=== PATIENT | male | born 1975 | race Caucasian/White ===

== ENCOUNTER 2023-11-16 10:33 | Outpatient (OUT) | payer OTHER, SELFPAY ==
[2023-11-16 11:56] LABS: Estimated Average Glucose 103 mg/dL; Glycohemoglobin A1C 5.2 % (4.5-6.2)
[2023-11-16 12:12] LABS: Prostate Specific Antigen Scrn 1.02 ng/mL (<=4.00)
[2023-11-16 12:14] LABS: Alanine Aminotransferase 33 U/L (16-63); Albumin Level 3.9 g/dL (3.4-5.0); Alkaline Phosphatase 57 U/L (46-116); Anion Gap 11.9; Aspartate Amino Transferase 26 U/L (15-37); BUN Creatinine Ratio 12.3; Bilirubin Total 0.5 mg/dL (0.2-1.0); C Reactive Protein 0.68 mg/dL (<=0.50); Calcium 9.1 mg/dL (8.5-10.1); Carbon Dioxide 29.6 mmol/L (21.0-32.0); Chloride 101 mmol/L (98-107); Chol HDL Ratio 4.8; Cholesterol 201 mg/dL (<=200); Estimated GFR (African America >60 (>=60); Estimated GFR (Non-African Ame >60 (>=60); Free T3 2.29 pg/mL (2.18-3.98); Glucose 71 mg/dL (74-106); HDL Cholesterol 42 mg/dL (40-60); Potassium 3.5 mmol/L (3.5-5.1); Sodium 139 mmol/L (136-145); Thyroid Stimulating Hormone 1.558 uIU/mL (0.358-3.740); Total Protein 7.9 g/dL (6.4-8.2); Triglycerides 167 mg/dL (<=150); Uric Acid 7.3 mg/dL (3.5-7.2); VLDL CHOLESTEROL 33.4 mg/dL
[2023-11-16 13:45] LABS: Basophils Percent Auto 0.3 % (0.2-2.0); Eosinophils Absolute Auto 0.2 10^3/uL (0.0-0.7); Eosinophils Percent Auto 3.1 % (0.9-7.0); Hematocrit 44.8 % (42.0-54.0); Hemoglobin 15.4 g/dL (14.0-18.0); Immature Granulocytes Abs Auto 0.03 10^3/uL (0.00-0.03); Immature Granulocytes Pct Auto 0.4 % (0.0-0.5); Lymphocytes Absolute Auto 1.7 10^3/uL (1.2-3.8); Lymphocytes Percent Auto 24.4 % (20.5-60.0); Mean Corpuscular HGB Conc 34.4 g/dL (29.9-35.2); Mean Corpuscular Hemoglobin 30.6 pg (25.9-34.0); Mean Corpuscular Volume 88.9 fL (80.0-94.0); Mean Platelet Volume 10.3 fL (9.5-13.5); Monocytes Absolute Auto 0.7 10^3/uL (0.3-0.8); Monocytes Percent Auto 9.9 % (1.7-12.0); Neutrophils Absolute Auto 4.4 10^3/uL (1.4-6.5); Neutrophils Percent Auto 61.9 % (43.0-75.0); Platelet Count 225 10^3/uL (150-450); Red Blood Count 5.04 10^6/uL (4.70-6.10); Red Cell Distribution Width 11.9 % (11.0-15.0); White Blood Count 7.1 10^3/uL (4.0-11.0)
[2023-11-16 16:00] LABS: Erythrocyte Sedimentation Rate 39 mm/hr (<=15)
[2023-11-17 08:12] LABS: Testosterone 638 ng/dL (264-916)
[2023-11-17 09:10] LABS: Insulin 6.2 uIU/mL (2.6-24.9)
== END 2023-11-16 10:34 | disposition home or self-care (01) ==
LOC: LAB 10:41
PROVIDERS: PCP Nurse Practitioner Family; Visit Provider Nurse Practitioner Family
DX: Z01.89 Encounter for other specified special examinations (principal)
CPT/HCPCS: 36415; 80053; 80061; 82306; 83036; 83525; 84403; 84436; 84443; 84481; 84550; 85025; 85652; 86140; G0103

== ENCOUNTER 2025-01-09 15:59 | Outpatient (OUT) | payer OTHER, SELFPAY ==
--- OUTSIDE RECORDS SUMMARY | 2025-01-09 16:25 | XMS_ITS | CCD ---
Author Organization [facility] CliniSyfl Care Team Providers Care Sheet Cutting Operator Name Role Phone DR DELIA COKER V Admitting Unavailable DR DELIA COKER V Attending Unavailable JESSICA QUIGLEY Primary Care Unavailable JESSICA QUIGLEY Admitting Unavailable JESSICA QUIGLEY Primary Care Unavailable JESSICA QUIGLEY Consulting Unavailable JESSICA QUIGLEY Attending Unavailable Yair Louise MD Primary Care Provider [phone] Yair Louise MD Primary Care Provider [phone] OSEAS WHITTAKER Attending Unavailable YAIR LOUISE Referring Unavailable YAIR LOUISE Primary Care Unavailable YAIR LOUISE Referring Unavailable YAIR LOUISE Primary Care Unavailable Allergies Allergy Classification Reported Allergen(s) Allergy Type Date of Onset Reaction(s) Facility (2 sources) Penicillins; Translations: [PENICILLINS] Drug allergy (disorder) 6 [facility] Repository (3 sources) Penicillin G; Translations: [PENICILLIN G POTASSIUM] Drug Allergy 6 [facility] Work Phone: (1 source) Penicillins Propensity to adverse reactions to drug 6 Abdominal Pain [facility] (1 source) Penicillins Propensity to adverse reactions to drug 6 Abdominal Pain [facility] Medications Current Medications Medication Drug Class(es) Dates Sig (Normalized) Sig (Original) [id number] 200 actuat albuterol 0.09 mg/actuat metered dose inhaler (2 sources) beta2-Adrenergic Agonist Start: 08-04-2022 albuterol (PROVENTIL HFA;VENTOLIN HFA) 90 mcg/actuation inhaler Inhale 1 puff as needed. 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 +/-10% of 5565 FVIII units 6 each 09/20/2023 Active levothyroxine sodium 0.125 mg oral tablet (2 sources) l-Thyroxine levothyroxine (SYNTHROID, LEVOTHROID) 125 MCG tablet Indications: hypothyroidism Take 175 mcg by mouth in the morning. Indications: a condition with low thyroid hormone levels. 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: 07-07-2021 Resolved: 06-09-2016 09-19-2023 Chronic Nutritional deficiencies (3 sources) Vitamin D deficiency; Translations: [Vitamin D deficiency, unspecified] Onset: 11-12-2024 11-12-2024 Chronic Other nutritional; endocrine; and metabolic disorders (4 sources) Body mass index 30+ - obesity; Translations: [Body mass index (BMI) 36.0-36.9, adult] Onset: 07-06-2016 Resolved: 10-31-2018 10-31-2018 Chronic Past or Other Problems Problem Classification Problem Date Documented Da te Episodic/Chronic Appendicitis and other appendiceal conditions (2 sources) Acute appendicitis; Translations: [Unspecified acute appendicitis] Onset: 06-07-2016 Resolved: 10-31-2018 10-31-2018 Episodic Mood disorders (2 sources) Mood disorders Onset: 09-19-2023 09-19-2023 Results Test Name Value Interpretation Reference Range Facility CBC AND AUTO DIFFon 11-13-19 25 ABSOLUTE BASOPHIL 0.1 X10E9/L Normal 0.0-0.2 [facility] Comment on above: Performed By: #### C BCA, CMP, 19540-1 #### [facility] ([id number]) [address], [address] [place] [address] ABSOLUTE NEUTROPHIL 4.8 X10E9/L Normal 1.5-6.6 [facility] Comment on above: Performed By: #### C BCA, CMP, 11080-1 #### [facility] ([id number]) [address], [address] [place] [address] Basophils/100 WBC (Bld) 0.7 % Normal [facility] Comment on above: Performed By: #### C BCA, CMP, 00406-8 #### [facility] ([id number]) [address], [address] [place] [address] Eosinophils (Bld) [#/Vol] 0.6 10*3/uL High 0.0-0.[address] [facility] Comment on above: Performed By: #### C BCA, CMP, 88066-8 #### [facility] ([id number]) [address], [address] [place] [address] Eosinophils/100 WBC (Bld) 7.2 % Normal [facility] Comment on above: Performed By: #### C BCA, CMP, 74258-7 #### [facility] ([id number]) [address], [address] [place] [address] Erythrocyte distribution width (RBC) [Ratio] 13.7 % Normal 11.5-15.[address] [facility] Comment on above: Performed By: #### C BCA, CMP, 29383-7 #### [facility] ([id number]) [address], [address] [place] [address] Hematocrit (Bld) [Volume fraction] 45.1 % Normal 39-[address] [facility] Comment on above: Performed By: #### C BCA, CMP, 50194-0 #### [facility] ([id number]) [address], [address] [place] [address] Hemoglobin (Bld) [Mass/Vol] 15.4 g/dL Normal 13.0-17.[address] [facility] Comment on above: Performed By: #### Cleopatra FLETCHER CMP, 27517-7 #### [facility] ([id number]) [address] [address] [place] [address] Lymphocytes (Bld) [#/Vol] 2.1 10*3/uL Normal 1.0-3.[address] [facility] Comment on above: Performed By: #### C JUSTINE, CMP, 89711-9 #### [facility] ([id number]) [address] [address] [place] [address] Lymphocytes/100 WBC (Bld) 24.3 % Normal [facility] Comment on above: Performed By: #### Cleopatra FLETCHER, CMP, 05299-1 #### [facility] ([id number]) [address], [address] [address] MCH (RBC) [Entitic mass] 31.4 pg Normal 27-[address] [facility] Comment on above: Performed By: #### Cleopatra FLETCHER, CMP, 95583-0 #### [facility] ([id number]) [address] [address] [place] [address] MCHC (RBC) [Mass/Vol] 34.2 g/dL Normal 32-[address] [facility] Comment on above: Performed By: #### Cleopatra FLETCHER, CMP, 89467-9 #### [facility] ([id number]) [address] [address] MCV (RBC) [Entitic vol] 92 fL Normal 80-[address] [facility] Comment on above: Performed By: #### Cleopatra BCA, CMP, 37543-0 #### [facility] ([id number]) [address] [address] [place] [address] Monocytes (Bld) [#/Vol] 0.9 10*3/uL Normal 0-0.[address] [facility] Comment on above: Performed By: #### C JUSTINE, CMP, 61265-2 #### [facility] ([id number]) [address], [address] [place] [address] Monocytes/100 WBC (Bld) 10.8 % Normal [facility] Comment on above: Performed By: #### C BCA, CMP, 36780-9 #### [facility] ([id number]) [address], [address] [place] [address] Neutrophils/100 WBC (Bld) 57.0 % Normal [facility] Comment on above: Performed By: #### C JUSTINE, CMP, 74941-6 #### [facility] ([id number]) [address], [address] [place] [address] Platelet mean volume (Bld) [Entitic vol] 8.7 fL Normal 7-[address] [facility] Comment on above: Performed By: #### Cleopatra FLETCHER, CMP, 90890-6 #### [facility] ([id number]) [address], [address] [place] [address] Platelets (Bld) [#/Vol] 193 10*3/uL Normal 150-[address] [facility] Comment on above: Performed By: #### Cleopatra FLETCHER, CMP, 72195-6 #### [facility] ([id number]) [address], [address] [place] [address] RBC COUNT 4.92 X10E12/L Normal 4.10-5.[address] [facility] Comment on above: Performed By: #### Cleopatra BCA, CMP, 51327-5 #### [facility] ([id number]) [address], [address] [place] [address] WBC (Bld) [#/Vol] 8.5 10*3/uL Normal 4.0-11.0 [facility] Comment on above: Performed By: #### C BCA, CMP, 38013-7 #### [facility] ([id number]) [address] [address], [address] [place] [address] CBC auto differentialon 10-23 Basophils (Bld) [#/Vol] 0.1 10*3/uL [facility] Basophils/100 WBC (Bld) 0.7 % [facility] Eosinophils (Bld) [#/Vol] 0.6 10*3/uL High [facility] Eosinophils/100 WBC (Bld) 7.2 % [facility] Erythrocyte distribution width (RBC) [Ratio] 13.7 % 11.5 - 15.0 % [facility] Hematocrit (Bld) [Volume fraction] 45.1 % 39 - 49 % [facility] Hemoglobin (Bld) [Mass/Vol] 15.4 g/dL 13.0 - 17.0 g/dL [facility] Interpretation and review of laboratory results Abnormal [facility] Lymphocytes (Bld) [#/Vol] 2.1 10*3/uL [facility] Lymphocytes/100 WBC (Bld) 24.3 % [facility] MCH (RBC) [Entitic mass] 31.4 pg 27 - 34 pg [facility] MCHC (RBC) [Mass/Vol] 34.2 g/dL 32 - 36 g/dL [facility] MCV (RBC) [Entitic vol] 92 fL 80 - 100 fL [facility] Monocytes (Bld) [#/Vol] 0.9 10*3/uL [facility] Monocytes/100 WBC (Bld) 10.8 % [facility] Neutrophils (Bld) [#/Vol] 4.8 10*3/uL [facility] Neutrophils/100 WBC (Bld) 57 % [facility] Platelet mean volume (Bld) [Entitic vol] 8.7 fL 7 - 12 fL [facility] Platelets (Bld) [#/Vol] 193 10*3/uL [facility] RBC (Bld) [#/Vol] 4.92 10*6/uL [facility] WBC corrected for nucl RBC Auto (Bld) [#/Vol] 8.5 [facility] COMPREHENSIVE METABOLIC PANE Kris 11-12-2024 Albumin [Mass/Vol] 4.4 g/dL Normal 3.2-5.3 [facility] Comment on above: Performed By: #### C BCA, CMP, 55147-0 #### [facility] ([id number]) [address], [address] [place] [address] ALP [Catalytic activity/Vol] 49 U/L Normal 39-[address] [facility] Comment on above: Performed By: #### C BCA, CMP, 30040-8 #### [facility] ([id number]) [address], [address] [place] [address] ALT [Catalytic activity/Vol] 16 U/L Normal 0-[address] [facility] Comment on above: Performed By: #### C BCA, CMP, 31939-6 #### [facility] ([id number]) [address], [address] [place] [address] Anion gap [Moles/Vol] 8 mmol/L Normal 5-[address] [facility] Comment on above: Performed By: #### C BCA, CMP, 44661-1 #### [facility] ([id number]) [address], [address] [place] [address] AST [Catalytic activity/Vol] 21 U/L Normal 0-[address] [facility] Comment on above: Performed By: #### C BCA, CMP, 08477-6 #### [facility] ([id number]) [address], [address] [place] [address] Bilirubin [Mass/Vol] 0.3 mg/dL Normal 0.3-1.2 [facility] Comment on above: Performed By: #### C BCA, CMP, 19996-4 #### [facility] ([id number]) [address], [address] [place] [address] Calcium [Mass/Vol] 8.6 mg/dL Normal 8.5-10.5 [facility] Comment on above: Performed By: #### C JUSTINE CMP, 45677-5 #### [facility] ([id number]) [address], [address] [place] [address] Chloride [Moles/Vol] 104 mmol/L Normal 98-109 [facility] Comment on above: Performed By: #### C BCA CMP, 19057-5 #### [facility] ([id number]) [address], [address] [place] [address] CO2 [Moles/Vol] 27 mmol/L Normal 22-[address] [facility] Comment on above: Performed By: #### C JUSTINE CMP, 74563-7 #### [facility] ([id number]) [address], [address] [place] [address] Creatinine [Mass/Vol] 1.15 mg/dL Normal 0.60-1.[address] [facility] Comment on above: Result Comment: METH OD TRACEABLE TO IDMS STANDARD Performed By: #### C ROCKY FLETCHER, 04064-5 #### [facility] ([id number]) [address], [address] [place] [address] GFR/1.73 sq M.predicted among non-blacks MDRD (S/P/Bld) [Vol rate/Area] 79 mL/min/{1.73_m2} Normal >[address] [facility] Comment on above: Result Comment: Reported eGFR is based on the CKD-EPI 1 equation that does not use a race coefficient. Performed By: #### C BCA, CMP, 06344-7 #### [facility] ([id number]) [address], [address] [place] [address] Glucose [Mass/Vol] 96 mg/dL Normal 65-99 [facility] Comment on above: Performed By: #### C BCA, CMP, 65077-7 #### [facility] ([id number]) [address], [address] [place] [address] Potassium [Moles/Vol] 3.6 mmol/L Normal 3.5-5.[address] [facility] Comment on above: Performed By: #### C BCA, CMP, 70262-1 #### [facility] ([id number]) [address], [address] [place] [address] Protein [Mass/Vol] 6.8 g/dL Normal 6.0-8.0 [facility] Comment on above: Performed By: #### C BCA, CMP, 00987-4 #### [facility] ([id number]) [address], [address] [place] [address] Sodium [Moles/Vol] 139 mmol/L Normal 134-146 [facility] Comment on above: Performed By: #### C BCA, CMP, 88071-8 #### [facility] ([id number]) [address], [address] [place] [address] Urea nitrogen [Mass/Vol] 25 mg/dL High 5-[address] [facility] Comment on above: Performed By: #### C BCA, CMP, 57201-7 #### [facility] ([id number]) [address], [address] [place] [address] Comprehensive metabolic pane kris 11-12-2024 Albumin [Mass/Vol] 4.4 g/dL 3.2 - 5.3 g/dL [facility] ALP [Catalytic activity/Vol] 49 U/L 39 - 130 U/L [facility] ALT No additional P-5'-P [Catalytic activity/Vol] 16 U/L 0 - 40 U/L [facility] Anion gap [Moles/Vol] 8 mmol/L 5 - 15 mmol/L [facility] AST [Catalytic activity/Vol] 21 U/L 0 - 41 U/L [facility] Bilirubin [Mass/Vol] 0.3 mg/dL 0.3 - 1 .2 mg/dL [facility] Calcium [Mass/Vol] 8.6 mg/dL 8.5 - 10. 5 mg/dL [facility] Chloride [Moles/Vol] 104 mmol/L 98 - 10 9 mmol/L [facility] CO2 [Moles/Vol] 27 mmol/L 22 - 32 mmol/L [facility] Creatinine [Mass/Vol] 1.15 mg/dL 0.60 - 1.30 mg/dL [facility] Comment on above: METHOD TRACEABLE TO [facility] STANDARD eGFR (CKD-EPI)non-race dependent 79 - PINF [facility] Comment on above: Reported eGFR is based on the CKD-EPI 2020 equation that does not use a race coefficient. Glucose [Mass/Vol] 96 mg/dL 65 - 99 mg/dL [facility] Interpretation and review of laboratory results Abnormal [facility] Potassium [Moles/Vol] 3.6 mmol/L 3.5 - 5.0 mmol/L [facility] Protein [Mass/Vol] 6.8 g/dL 6.0 - 8.0 g/dL [facility] Sodium [Moles/Vol] 139 mmol/L 134 - 146 mmol/L [facility] Urea nitrogen [Mass/Vol] 25 mg/dL High 5 - 23 mg/dL [facility] Vitamin D 25 hydroxyon 11-12 Vitamin D+Metabolites [Mass/Vol] 31.1 ng/mL 30 - 100 ng/mL [facility] Comment on above: Vitamin D status 25 [place] Vitamin D Deficiency <20 ng/mL Insufficiency 20-29 ng/mL Sufficiency 30-100 ng/mL Toxicity >100 ng/mL NOTE: A pediatric reference range has not been established by the test bore helper of this kit. The [employer] recommends a Vitamin D level of = or >20ng/mL in infants and children. Vitamin D+Metabolites [Mass/ Vol]on 11-12-2024 [facility] VITAMIN D 25 HYD TOT 31.1 ng/mL Normal 30-100 [facility] Comment on above: Result Comment: Vitamin D status 25 [place] Vitamin D Deficiency <20 ng/mL Insufficiency 20-29 ng/mL Sufficiency 30-100 ng/mL Toxicity >100 ng/mL NOTE: A pediatric reference range has not been established by the test bore helper of this kit. The [employer] recommends a Vitamin D level of = or >20ng/mL in infants and children. Performed By: #### C BCA, [facility], 40313-0 #### [facility] ([id number]) [address] [place] [address] Documentationon 06-05-2024 Documentation [id number] Liana Kaufman 1975 M Date Provider Department Center 06/05/2024 [id number] BETANCOURT BILL MOB None No family history on file Reason for Visit and Comments: Glucose [909] Blood Pressure Check [299] A1C [910] Cholesterol [911] Normal [facility] CBC auto differentialon 08-25 Basophils (Bld) [#/Vol] 0.0 10*3/uL [facility] Basophils/100 WBC (Bld) 0.5 % [facility] Eosinophils (Bld) [#/Vol] 0.2 10*3/uL [facility] Eosinophils/100 WBC (Bld) 2.6 % [facility] Erythrocyte distribution width (RBC) [Ratio] 13.0 % 11.5 - 15.0 % [facility] Hematocrit (Bld) [Volume fraction] 45.0 % 39 - 49 % [facility] Hemoglobin (Bld) [Mass/Vol] 15.5 g/dL 13.0 - 17.0 g/dL [facility] Interpretation and review of laboratory results Abnormal [facility] Lymphocytes (Bld) [#/Vol] 1.3 10*3/uL [facility] Lymphocytes/100 WBC (Bld) 14.2 % [facility] [facility] MCH (RBC) [Entitic mass] 31.3 pg 27 - 34 pg [facility] MCHC (RBC) [Mass/Vol] 34.5 g/dL 32 - 36 g/dL [facility] MCV (RBC) [Entitic vol] 91 fL 80 - 100 fL [facility] Monocytes (Bld) [#/Vol] 1.1 10*3/uL High [facility] Monocytes/100 WBC (Bld) 11.3 % [facility] Neutrophils (Bld) [#/Vol] 6.6 10*3/uL [facility] Neutrophils/100 WBC (Bld) 71.4 % [facility] Platelet mean volume (Bld) [Entitic vol] 8.8 fL 7 - 12 fL [facility] Platelets (Bld) [#/Vol] 200 10*3/uL [facility] RBC (Bld) [#/Vol] 4.95 10*6/uL [facility] WBC corrected for nucl RBC Auto (Bld) [#/Vol] 9.3 [facility] Comprehensive metabolic pane kris 09-19-2023 Albumin [Mass/Vol] 4.4 g/dL 3.2 - 5.3 g/dL [facility] ALP [Catalytic activity/Vol] 53 U/L 39 - 130 U/L [facility] ALT No additional P-5'-P [Catalytic activity/Vol] 16 U/L 0 - 40 U/L [facility] Anion gap [Moles/Vol] 7 mmol/L 5 - 15 mmol/L [facility] AST [Catalytic activity/Vol] 15 U/L 0 - 41 U/L [facility] Bilirubin [Mass/Vol] 0.9 mg/dL 0.3 - 1 .2 mg/dL [facility] Calcium [Mass/Vol] 8.9 mg/dL 8.5 - 10. 5 mg/dL [facility] Chloride [Moles/Vol] 104 mmol/L 98 - 10 9 mmol/L [facility] CO2 [Moles/Vol] 31 mmol/L 22 - 32 mmol/L [facility] Creatinine [Mass/Vol] 0.91 mg/dL 0.60 - 1.30 mg/dL [facility] Comment on above: METHOD TRACEABLE TO [facility] STANDARD eGFR (CKD-EPI)non-race dependent - PINF [facility] Comment on above: Reported eGFR is based on the CKD-EPI 2020 equation that does not use a race coefficient. Glucose [Mass/Vol] 73 mg/dL 65 - 99 mg/dL [facility] Potassium [Moles/Vol] 3.6 mmol/L 3.5 - 5.0 mmol/L [facility] Protein [Mass/Vol] 6.9 g/dL 6.0 - 8.0 g/dL [facility] Sodium [Moles/Vol] 142 mmol/L 134 - 146 mmol/L [facility] Urea nitrogen [Mass/Vol] 19 mg/dL 5 - 23 mg/dL [facility] Vitamin D 25 hydroxyon 09-19 Vitamin D+Metabolites [Mass/Vol] 37.2 ng/mL 30 - 100 ng/mL [facility] Comment on above: Vitamin D status 25 [place] Vitamin D Deficiency <20 ng/mL Insufficiency 20-29 ng/mL Sufficiency 30-100 ng/mL Toxicity >100 ng/mL NOTE: A pediatric reference range has not been established by the test bore helper of this kit. The [employer] recommends a Vitamin D level of = or >20ng/mL in infants and children. Vitamin D+Metabolites [Mass/ Vol]on 09-19-2023 [facility] INSULINon 11-18-2022 Insulin 9.4 uIU/mL Normal 2.6-24.9 [facility] Comment on above: Performed By: #### I NSULIN #### [facility] [address] [address] [address] Nunu Dinero FREE THYROXINE INDEX T7on FTI 2.88 Normal 1.30-4.50 [facility] Comment on above: Performed By: #### C MP, T7, TSH, LIPID, URIC #### [facility] [address] [address] [address] Nunu Dinero T3U 36.0 % Normal 33.0-40.0 [facility] Comment on above: Performed By: #### C MP, T7, TSH, LIPID, URIC #### [facility] [address] [place] [address] Dr. Nunu Dinero T4 [Mass/Vol] 8.00 ug/dL Normal 4.50-12.10 [facility] Comment on above: Performed By: #### C MP, T7, TSH, LIPID, URIC #### [facility] [address] [address] [address] Nunu Dinero GLYCOHEMOGLOBIN A1Con 2022 ADA RECOMMENDATION SEE BELOW Normal [facility] Comment on above: Result Comment: ADA RECOMMENDED LIMIT 4.0 - 6.0 ADA THERAPEUTIC TARGET < 7.0 ACTION SUGGESTED > 7.0 Performed By: #### A 1C #### [facility] [address] [place] [address] Dr. Nunu Dinero Glucose [Mass/Vol] 103 mg/dL Normal [facility] Comment on above: Performed By: #### A 1C #### [facility] [address] [place] [address] Dr. Nunu Dinero HbA1c (Bld) [Mass fraction] 5.2 % Normal 4.5-6.2 [facility] Comment on above: Performed By: #### A 1C #### [facility] [address] [place] [address] Dr. Nunu Dinero LIPID PROFILEon 11-17-2022 CHOL-HDL RATIO NORM SEE BELOW Normal [facility] Comment on above: Result Comment: 3.3 - 4.4 LOW RISK 4.4 - 7.1 AVERAGE RISK 7.1 - 11.0 MODERATE RISK >11.0 HIGH RISK Performed By: #### C MP, T7, TSH, LIPID, URIC #### [facility] [address] [place] [address] Dr. Nunu Dinero Cholesterol [Mass/Vol] 231 mg/dL Critically high <=200 [facility] Comment on above: Performed By: #### C MP, T7, TSH, LIPID, URIC #### [facility] [address] [place] [address] Dr. Nunu Dinero Cholesterol in HDL [Mass/Vol] 48 mg/dL Normal 40-60 [facility] Comment on above: Performed By: #### C MP, T7, TSH, LIPID, URIC #### [facility] [address] [address] [address] Nunu Dinero Cholesterol in LDL [Mass/Vol] 153.4 mg/dL Normal [facility] Comment on above: Performed By: #### C MP, T7, TSH, LIPID, URIC #### [facility] [address] [address] [address] Nunu Dinero Cholesterol.total/Ch olesterol in HDL [Mass ratio] 4.8 {ratio} Normal [facility] Comment on above: Performed By: #### C MP, T7, TSH, LIPID, URIC #### [facility] [address] [address] Dr. Nunu Dinero HDL NORMAL > or = 60 mg/dl - LOW CARDIOVASCULAR RISK <40 mg/dl - HIGH CARDIOVASCULAR RISK Normal [facility] Comment on above: Performed By: #### C MP, T7, TSH, LIPID, URIC #### [facility] [address] [address] [address] Nunu Dinero LDL CALC NORMAL SEE BELOW Normal [facility] Comment on above: Result Comment: <100 mg/dl OPTIMAL 100 - 129 mg/dl NEAR OR ABOVE OPTIMAL 130 - 159 mg/dl BORDERLINE HIGH 160 - 189 mg/dl HIGH >190 mg/dl VERY HIGH Performed By: #### C MP, T7, TSH, LIPID, URIC #### [facility] [address] [address] [address] Nunu Dinero Triglyceride [Mass/Vol] 148 mg/dL Normal <=150 [facility] Comment on above: Performed By: #### C MP, T7, TSH, LIPID, URIC #### [facility] [address] [address] [address] Nunu Dinero VLDL CALC 29.6 mg/dL Normal [facility] Comment on above: Performed By: #### C MP, T7, TSH, LIPID, URIC #### [facility] [address] [address] [address] Nunu Dinero PROF 14(COMP METB)on 023 Albumin [Mass/Vol] 4.0 g/dL Normal 3.4-5.0 [facility] Comment on above: Performed By: #### C MP, T7, TSH, LIPID, URIC #### [facility] [address] [place] [address] Dr. Nunu Dinero Albumin/Globulin [Mass ratio] 1.3 {ratio} Normal [facility] Comment on above: Performed By: #### C MP, T7, TSH, LIPID, URIC #### [facility] [address] [place] [address] Dr. Nunu Dinero ALP [Catalytic activity/Vol] 55 U/L Normal 46-116 [facility] Comment on above: Performed By: #### C MP, T7, TSH, LIPID, URIC #### [facility] [address] [place] [address] Dr. Nunu Dinero ALT [Catalytic activity/Vol] 23 U/L Normal 16-63 [facility] Comment on above: Performed By: #### C MP, T7, TSH, LIPID, URIC #### [facility] [address] [address] [address] Nunu Dinero Anion gap [Moles/Vol] 12.0 mmol/L Normal [facility] Comment on above: Performed By: #### C MP, T7, TSH, LIPID, URIC #### [facility] [address] [place] [address] Dr. Nunu Dinero AST [Catalytic activity/Vol] 14 U/L Critically low 15-37 [facility] Comment on above: Performed By: #### C MP, T7, TSH, LIPID, URIC #### [facility] [address] [address] [address] Nunu Dinero Bilirubin [Mass/Vol] 0.4 mg/dL Normal 0.2-1.0 [facility] Comment on above: Performed By: #### C MP, T7, TSH, LIPID, URIC #### [facility] [address] [place] [address] Dr. Nunu Dinero Calcium [Mass/Vol] 8.7 mg/dL Normal 8.5-10.1 [facility] Comment on above: Performed By: #### C MP, T7, TSH, LIPID, URIC #### [facility] [address] [address] [address] Nunu Dinero Chloride [Moles/Vol] 105 mmol/L Normal 98-107 [facility] Comment on above: Performed By: #### C MP, T7, TSH, LIPID, URIC #### [facility] [address] [address] [address] Nunu Dinero CO2 [Moles/Vol] 28.7 mmol/L Normal 21.0-32.0 [facility] Comment on above: Performed By: #### C MP, T7, TSH, LIPID, URIC #### [facility] [address] [place] [address] Dr. Nunu Dinero Creatinine [Mass/Vol] 1.38 mg/dL Critically high 0.70-1.30 [facility] Comment on above: Performed By: #### C MP, T7, TSH, LIPID, URIC #### [facility] [address] [place] [address] Dr. Nunu Dinero EGFR-AF GIBRALTARIAN >60 Normal >=60 [facility] Comment on above: Performed By: #### C MP, T7, TSH, LIPID, URIC #### [facility] [address] [place] [address] Dr. Nunu Dinero EGFR-NON AF GIBRALTARIAN 56 mL/min/1.73m2 Critically low >=60 [facility] Comment on above: Performed By: #### C MP, T7, TSH, LIPID, URIC #### [facility] [address] [place] [address] Dr. Nunu Dinero Globulin (S) [Mass/Vol] 3.2 g/dL Normal [facility] Comment on above: Performed By: #### C MP, T7, TSH, LIPID, URIC #### [facility] [address] [place] [address] Dr. Nunu Dinero Glucose [Mass/Vol] 93 mg/dL Normal 74-106 [facility] Comment on above: Performed By: #### C MP, T7, TSH, LIPID, URIC #### [facility] [address] [place] [address] Dr. Nunu Dinero Potassium [Moles/Vol] 3.7 mmol/L Normal 3.5-5.1 [facility] Comment on above: Performed By: #### C MP, T7, TSH, LIPID, URIC #### [facility] [address] [place] [address] Dr. Nunu Dinero Protein [Mass/Vol] 7.2 g/dL Normal 6.4-8.2 [facility] Comment on above: Performed By: #### C MP, T7, TSH, LIPID, URIC #### [facility] [address] [place] [address] Dr. Nunu Dinero Sodium [Moles/Vol] 142 mmol/L Normal 136-145 [facility] Comment on above: Performed By: #### C MP, T7, TSH, LIPID, URIC #### [facility] [address] [place] [address] Dr. Nunu Dinero Urea nitrogen [Mass/Vol] 22.0 mg/dL Critically high 7.0-18.0 [facility] Comment on above: Performed By: #### C MP, T7, TSH, LIPID, URIC #### [facility] [address] [place] [address] Dr. Nunu Dinero Urea nitrogen/Creatinine [Mass ratio] 15.9 mg/mg Normal [facility] Comment on above: Performed By: #### C MP, T7, TSH, LIPID, URIC #### [facility] [address] [place] [address] Dr. Nunu Dinero TSHon 11-17-2022 TSH 1.655 uIU/mL Normal 0.358-3.740 [facility] Comment on above: Performed By: #### C MP, T7, TSH, LIPID, URIC #### [facility] [address] [place] [address] Dr. Nunu Dinero URIC ACID SERUMon 11-17-2022 Urate [Mass/Vol] 8.5 mg/dL Critically high 3.5-7.2 [facility] Comment on above: Performed By: #### C MP, T7, TSH, LIPID, URIC #### [facility] [address] [place] [address] Dr. Nunu Dinero Coding Summaryon 03-03-2022 Coding Summary HTMLBase 64 PcxcckohEJy5rZk+PGhl YWQ+UF2UVOXzH00mgLAy oS8HN3pMBS1KQRZZFXHM HY5CCR1gnPL9UNhcO4Ay biAv QetneMRmOL65FMe2QCK8 qGwfBYnouC5qyEIfA7b2 NzQzBQ74wP61WYgmWYTo JhM6TeFrbtfhmUDr G6wlPvZmcIPeOjd+PHRh YmxlIHdpZHRoPScxMDAl OjOghXanEA7dVi5oJLAp LWNvbGxhcHNlOiBj l1gdKFDkHEkaMY3rgMve U8ClkSC9PWBvx0k2Uz03 dHI+ZIEwPHZ1oHglWXha b789WhXic3hpNWU6 uXAvFQltCTQ0L14gr1E5 CKVrXKXyYIC7rRV6oW9b fHqluhilL4LbcKWyShA5 NAB5sXZlzN5cxLlm lysgyU7tJnr+F95DHE5X QOJEBQ0ZMnd6N4AkJkxa dHI+XL06MUMtIH60zXIx cRIfl2apkXx7AgQo CRJiGOW3kIydEAdsq9Pv UKZsT39mfTDhz3W5PRDy bFkpuHYsYhVzyIL1pT3b KDpntptan6stzqdj Sjcqg3kqdb98pX66R48w CBswXRQpLMX9UUZeSNMj xNdhnl8gkD2hJf7+IDxj p2zuu1bgcVt0HcGd ETQjyaYziDhzFQB4q1Ca Kr21N5CccAvwa3QnPmv1 vp85sNVwt2S0tLK5KQss DVBmqG5dYNowHeG2 VRDvBaZbwS31uKPkIDml Zb3efBjboBteJO7nOHOj jraaARGfwK8gJQOkyQUi zUboHA9fOEWtpduc g225JpVuBDQ6FDBmrXJh I5EjqL4cFuLzOQGgFVNq V0AhrTHvCUwhI643AYff KhH6ATUprjJcK6Ij WSRtlTggIyW2s7D8Pl3Q a4DannalWFK9VCzuZCV5 YaZqOjAxHgR7N4SnEcc0 TCGomBqvYZ1rK0Sa EEKzcxakhhhepEH9NEOt QBJlmM44gAOqXTzpXe5t s3X3i074BBEnDASiaH03 Kf5lvMduTOIfmEYC wL7pkbuge4ubcgkjLzZw MHFpWTq9VPp9XRMaqVaw JzToTBR9AtZ3JSD7oFNi hW3ubJzbkibkkA4t Oyc+X29paN3gRJI9PHF6 duprIOYbmsIkTU09OI28 J1QoTgriuOMpjSR+PGRp xjEcvFruYJ7dAjQw w4ykn8JbBOugZ3OnWQRl BHngMns5BLVkXWA6mEY2 hW2tOJKlBEjpq5L7hSU1 T2WiflPqhg5rx8ar QWUnGTajG48saJRhz8G5 VGPemXI5GILdrNixByJq oP38Dbk+BZMmaRsji5Xf Nnvea8tpj7sndQk4 IjMwJSIgdmFsaWduPSJ0 e9BwZc18G62wXUywKNNs VBGpKGOwFXIpoUmqmn9g yR2rOz3+PGNvbCB3 bKW0fS6dVDGtSpV1WOcg C575XsHdgXVvRbfvt1lp f0ptmUg3LuVfYIEhmgEx iEbnRKR0r3DuDt51 J46oJGxrANJvBGMmCIOg JWXtfLevbs0lmI0cNv2+ WD5xe9yrqm51qL12oTF+ HWXuYXP5pDkeKYwa AGGhwN0xJYvaNpC1RDHt CuTcsY84dABuUNlyTl9m bQpwzOdvQD9yFCSmdxka a025ChPip4nqJXXa rTAwTJyxTFB7S42ty9D2 IWSfSXCfPIS6dSC6tQ4c bGlnbjogbGVmdDsgdmVy kGplELywZTdcI404 IHRvcDsnPlBhdGllbnQg JgBhXLj0Q3UvQls8QEMg lMfxNL3wdZWmDSruLg3u dSaxrXwoHE0aUVLi ockzd394YkUut8omUDLh yKYsYYscJIO0J00pu5K6 HSYnVPRfBVZ3pGZ1nW2r bGlnbjogbGVmdDsg unOrcRyfSIpjXHtqA604 IHRvcDsnPkJpcnRoIERh qFA8XT20VE53qXOcp6G2 zVC1X6FeBOFwtolv fdvjxEM8JQKbZCWhoW71 Mk5tyQlkCh4zDSUrOXC4 TUNmdVKdG5LajB3wCnYy NJZyOQKnN1FqrRNb JTrzZ896QQnhWjI2VLMh qaOuG9YxNDLrvCmyNjK3 x4M3Fw6NK7F7MM08HU95 hFKmg2E1rRD2L1Ms GWTjkpxtuuprxLM3ZWVf WSTzaX43Bo9drUxcCt3x LGUuFCB2ZARewVTiV6Wg xU8xYnTcANQaBIEm O4BoeTAqEStdZ174XNwv OwP3IXFvzxQlK6NiYVFi kMxsEmI3f4P3Dv8DCLv7 ZZ85MJ53gETff3P5 kSN0J1VeRSYnnopcsghg gEX2KLKsZNNqhH72Nf8h pLudCa4iWIFyOTA3JMGe mCPzI1CbvN6kHgGn MYKzDUOkV2VdwBCzBZtk M269MAooFzS8AQEtmmRh T4YxECEgvOmmShA4o8D9 Ju7DKNMyXB57EWD1 yZV7KC02XZ78W8YhCgwo dGFibGU+PHRhYmxlIHdp ZHRoPScxMDAlJyBzdHls VA5sFa1fPOIhOTWm bVdoeLMnYaZjs7bcCVJb WZjlVE2rmMrjC8IfqSO9 HPKsp3l5Md08T34tF7Kd dXA+YLLpySG2eIN8 tF1bRaIiBmG3JNvsC664 WrJxtXIzKfwik9idg2ad bUg4DoU0FYBmemLqeLdd JVA3i3WvXh49F64d IHdpZHRoPSIxNSUiIHZh aTmnlu6jwQ9rUd6+PGNv uLT4gSU7wS2iJrZaAbC1 PAiuA456DzHkmPWf Hcjmt6npm2kooZv3TuUh GDMcpbCjhAhyJRE1q3Bp Xu74T0AsbWoho4OdDab0 js36kGEas4G5vXK2 T8ZqMFTleuajlMXraLcf QO2aPMBhnsseSHJemU9s VHVwE9p8ToNuIkX8YLmv M3YoagD7SMUzkUDz OMbwOLQ4L96zr5P6XKSe KFDrKDA3pDJ8yU5nyHmk bjogbGVmdDsgdmVydGlj JJogRNbeZ145HYUi jUyvKFIocY8vBNXlrUBm bHqgPH5qJQWaeyxfMz3Y XTuML5LsAV0YA6hUAKxu Td7SASFISL00RE40 yJGln0U3rCS3R7TeTTNx cwodyscscTF7QAWxZOKv yT37zTIaDRzyGb5lj1I4 x405PBOvAJFgmL30 Ju4sjJggTDAznBROzL3s ydayn7hkflqfOaRhZSRy IXb5EAh3ODZebVuwGxQk NKZ3NrH5FEJ2zDOn iF2ymYifsxqipU7yZjz+ SQLqFSKnPGb3GEkqqKT+ TDCnAXY3rDadYNrkJJHh rP4yIWFjS6o0NdBb PfL1CGhdM0PcMBBfjdcj Sw70nG4tHiLhLyE0FVzb X4OtvbB1LUMugJFmLXjz DSR5B01ru7U4JOLj NZRmXMB5oQL7iV0zpOij bjogbGVmdDsgdmVydGlj YBkwTEuxN651AUCtuGia DwP0AAzzTAYrTT28 VY58oYAfy5K0mWM7F8Ik NNMewjyutwuerUD8XGQh AZSekK38sETcLBnsUp0i k8K9x221BDGgCRHw vF52Nk5nyZpsVHYiyMAT mM8uhmcgf0vxugwfGsYc SRXuYOn1FCv6XVJemTpf GpRcKPA7CrC0SGF6 cKRkoO1jzDpwhvxosG4m Oyc+TUFMRTwvdGQ+PHRk JGK2lIfeXAqlUJTcwX8a MGAkG2l0YyHgMmF3 FDtpS6KoNJTlvdwwGz28 cN5qDwTjPjD6QKwaL1Jr brD3SUFdrNVrDVqxTCI1 E39gu0V3XGEhOMYr NJH8pIJ6gS9seRuguuyj bGVmdDsgdmVydGljYWwt EOatE813RYDgqSmcNu2M QK56TI36L4JbIdjk dGFibGU+PHRhYmxlIHdp ZHRoPScxMDAlJyBzdHls RN8nZj2jKYVuQJEvtAmr nUEeCiHwm4jpPUPb SWevQC8wwMikL1LbwNX5 THOmz6v4Ew46L11bL6Md dXA+KKLsyXY0eQV2kQ3e RjFlZmE0PBtlR580 NyDtjOOpEpbcf5kdv1og vLc9NkSaQGLdstMaoHtx TUL2b5BuKo29W77kIHjc ZHRoPSIyMCUiIHZh rHkoay3dqU2bNn6+PGNv lDI2oBM7uQ9mPmEeVaN9 PEcbS748LpTvvUKfFtab M18sE1DggFK+PHRy Spy4FBSqxWeyZX2gnVYq OArvEq4vZQU6WeEpKdCv ETfxG4LaTSOwpixemtdg kLW2EWDfYZIzdM83 Cd4goVttKm0eVRGkVEU7 UMRaqEOcP4JtbI9dUvDl TTGfUTMhU5GxlSEqNQei V515UUelJeZ8COVp ddAeW0ZmPUUoqIucBlH0 m9Z6Pq3KuEbguUAsIR4u OmPbEPb9R1NbOeq1GQLe mAalLH1hxNCdZFnz Bu5zqFpdzVyhXX5rBVEs sqbyq907MsTuw4qsMWGz pJAxCHorAWH5I18kv2T7 PJEyXJBjUKZ3iEY5 oJ0rkFetuaogfRCsmKxx lmIrtGuqQWeyVMzcN616 DSJdwJusBeRDSfr5T3Li Jqd7IBJjtCtrVB5u yZPaVCpcUk4kuAynhWam MK3rNWMcbluif161QhWl p8qoLLHsnYWbETlaGKV0 R70ft9Q2PTTeALQe SFV4iJY3wQ0boYdjehxa bGVmdDsgdmVydGljYWwt DDivA558BALyzSorPb6E Zaj9X9NaAlt5ZEWc nBxhAA3nnISnEQlaZr9i cSodnJhsJJ2zDOCtiwzs t849NyHyi8wgTEFfzOAr VBorIBC9X32gm0K3 ASCtAKVuREJ9xVW0xF8t bGlnbjogbGVmdDsgdmVy lOanDFidNIqoR427OELp cDsnPlBheWVyOjwv dGQ+NJ86dy05Z8RdFpkc Ewq6VZVuXOK6pIJ9tK0a RDZqHTwsh0J7oZY7K0Xc yaRumv5ss3imGSSa ZTo (more content not included)... [facility] Coding Summary HTMLBase 64 OgpiltdwXYc6dEi+PGhl YWQ+NL9YARFpT69fjMKk lX8BA1xUSN4NIBBXGYCS JJ2DLS7kiFC3LPttG2Ir biAv PzneqOSuQZ18QRt8BJQ1 bQdsQSyjmF8ktCUbF5g2 UcKvTQ09kC28FHqxLQMh WtJ5CeHtdciszWZj I7fpYuWjwTOmCvf+PHRh YmxlIHdpZHRoPScxMDAl VyHzmDkfBW9mZm8vXKKr LWNvbGxhcHNlOiBj b2rgROCkNPppXS3zeVkp D7AvqDQ7VYAby7o6Kj26 dHI+CBJfFPX2yWgwPTwz s899QkHds8wjCRS4 zWRkZKktTGE5J95up6Z9 LSUkKJRhRJE0dFC8mD1y kKonqzkxG7UulQHpWfY4 BHE3vPXkfI3reKlu zzcnuI4hNwz+J01OVM1C KWPJPP0JKlk1Z1UjQfsm dHI+CQ77CTSrEZ46cUGb pJPjf8kfqEd9TbEb SSRsRVM6mLruAIdbq9Re BDMtC14zyYLmu6Q1BVRx nIflaCPuMcApwVS2fI7u EWjcyoqjg1qivxpm Qnkfs5bnam43rV13G61e GGztHAVqAZY7UXKbDILo vYixnd7wwB0dMw4+IDxj b1jqn4svkWr1FzNa AMTiqdSqlSmjNSI8b6Px Xy30U2ItkEojb8VoRtt4 et71yQRoq5S8xOW6GDfv YEMlhF7lYFioJzF5 IXXkIaTtvC80qGAsPPbl Xe6ehOjubWmyGI9vVKXu rtkfEKKyxP9cRMIvdAIw fFvzWS5oZKElpciw c127EzQgJIK0RVKuhBDy J5AmcJ3iYwXwSNEqHDHh D2GpcNYwFFtiJ508JKxi MzS9EEDzidUoH0Fc MHWmlWfqYaR5l7H2Yl3U c0YyosrmSMU1JFuxURR4 PaRzVvHfBsZ1N1OoOse1 IJKwrJxzFY0yH9Rb FSAjmxslvqljaPH6IBDw GBQtrE01xFNyNUisRl8i o8Z1t935DHEiMDIlbI63 Uu8vnZlzKNPtjVIN qH5rpbman4mytbvlGrOv ZUNnXHr3ATd5NPPrxMxt UhOgYOV2RfD5TYV7vZRv wZ9ddIygjqdelF4g Oyc+E47xoP8eZCU2DPI6 nckuSWOfgaXsMN19OJ10 T8GgZucnkFHgtNU+PGRp tkBhyDflMR4qTfAw w8jyk1MrLAwvA1PsPUMu SPoaIrj8EOTqXOJ2yQM8 yO1vVYAwCIesz0N8vWV4 K7RsqoWbfo4ho8uz URTaGBtuH94ojIYly7I4 ZHJfuFC5SFNjuYjeUbUs aH65Iam+ZORdiHvfx3Dt Ydsxm1gue0ojxSb1 IjMwJSIgdmFsaWduPSJ0 v3XwOk56K06aYMhbRILv CLLwHIGmACGmdGstef2x gN4cGc5+PGNvbCB3 uSE9tX5qFXBkNwG8EUpt K820ViTtuHRjYjakr8op y8zuyQt5TyCwZPIdmnZa iYcyANV8s9VeVp97 K26zSPaaAKKbZCHhWADg OXAhsUbkpk1pmP7gIx1+ BA0nf5jpik67aX18vUD+ PUScIAT0vLqyVOzs PLRewI6iYTdgLtM2SPVw MjPupW63lOUiAEmhIi5l tZxgnFywOF2wXMYeqokd h413XwNse9khEJTd lPVgGUwfSLI8S82yf4H2 RWHhCOUdKJG1wCP5jI1i bGlnbjogbGVmdDsgdmVy gCgkCBvkRHciU588 IHRvcDsnPlBhdGllbnQg LkUbAQt5H5HbYvn0TNWn rAkbWE8qeAEgCMqsBs6f pQufpFwnCN2kVYTc omzdt232ScWct0quOIZz tDFqWGwdFCS8A45qd1U7 MXLsTLKeNNC0nRL5aG6h bGlnbjogbGVmdDsg neDanCesYQetDJniE871 IHRvcDsnPkJpcnRoIERh zPN6MK86FY33lLGrl8Y0 gWM1X5KrVNKhjzye vcqpvDF7GBQnAGKkgO05 Gg9irIlgEr4sJOGiIAW4 VKCleZOjS8FtiT8xFxOc BEAfSUUdP7EdyRMt WTcvK463VBubLzN8KPAt fiVhJ6EaEADlsSrcXgC1 r6I8Kb6QJ6N1HU13GV73 mVVvd4I5uJI7S1Yn BOAlnciyezcwyUI3UAEv NXXliM20Ab2huCsrVp4t WKDyTWV8DKRwrQFqZ0Ey lK5vFiPpOJVtWVEz O1HskPRyUVooD809MKsl AyQ9MJWignUpR1ZnEYZs eDimHlJ9n8W6Ip0UHZo3 RP24LG42sEPqz0T5 wML3G6WbSBTrhppmphxg eRU1GLJsKQWbeU23Er7q kFzsNf8zRGBiIIN7ATNn nBDjD2SicT1hGoHm IPAgRVRpH0KwnQAnOOtb A125BUpeEqB1GUPuoxSk J6AlCOOgmBeqMlF2n4U6 Mx0XHCThEJ49YMK2 jBN2KY73GS92D1MtYcmq dGFibGU+PHRhYmxlIHdp ZHRoPScxMDAlJyBzdHls VA2sIv1lPVCuONMg pVenrYHiZoFri3bbJMFb XHwnJS5zkRxbF2FqyOF2 TGQpg9d7Ho05T53dL7Ec dXA+JPTisZW9bVO3 qD7vUaLoWcX9PRztQ756 BbPkjEFhQvaae4edb2nz rNb1SnJ4UZPziaClyXky UFR1o1QsWa60V10x IHdpZHRoPSIxNSUiIHZh vFhvpq8zxA4eEu7+PGNv fZP6qRY9kE2mTfQaAzF3 WJphY346AxQceZWa Pwkwm8laj3nwhIp4MlDg IEDipdImjPjkMDG6a2Rx Ef88J4GfmKksz1MbAwm5 iw62pRImr3K1jJN6 N1HfAIZocxatyFWdsQdu PK3eXCCudvigXVGcqD9e ZRXwH6p5HkWoDcR6PDxt B5HcazT5MPYjjVGw FFsmQWI0G27qn4H5TZKw KWTeDNQ7uLS8rR3dgHsb bjogbGVmdDsgdmVydGlj RPrpRZebE925SVHt gTgkBHRuwC0kPHDhnASt kCqwWA2nPVVbbduvXh7N LVqWP2WuYT1UV0lBGYlc Bq3EGCLACY55JW10 mQRah0C6tJD4K3BiOFYs ptovabolvBO6RHQnLMYc bO04rAAfMAvfMi1cb6X0 j146YJSeVSHtbF62 Ls5shBzmZUYshJJZoE5b yejad3vbembiZvCuBRMl RSj8TUm9SPQkpHdnApFe WMV6BjT8GWZ5gHNq tK8ifMylfpoapH5bJoq+ TGJyQAXmCCf3NArvzOW+ DIUgFPX6yZskHWrxUDYv cD1wKZJqH2n6IqUy ZdD0EUqfF6GnMHTzjwif Pm10uZ3tWiHhJpG8BRyf O4RhcuJ5XSEumYZfKNad DLG2S83ee0J2JDPz NDHsKDH3xWJ9hX0rtUkz bjogbGVmdDsgdmVydGlj NUlwWCngE947KECidJaf EwE2GWalPKLwHM50 EO49jBOur6M6oFN1Q9Ak YZPbrdoaairxhDL4NOFt OHYyeH92dLKqAJvqRi1o m5S9i076HFGaULEu jY35Wq1pvZdzEAFogBZD oF8ekbvqc7lxhdcxBvWy XQMzBSf3MVa9SHBscKcm OdTyBVK6MwO4PGA5 yLDibT4qnNidbptlkF8a Oyc+TUFMRTwvdGQ+PHRk ZYF9vJttGDqrOVAfbC8i FQMaP4e7UuIdOpE6 EEggY9XoVKBgbecxJk01 gS8bPxAqAaV8FIkdT2Vg deN1CBGbkCEdOTvnGIE4 X10sf2B4HFCjBBHk FVD6iCA2hP7vnKvdohpn bGVmdDsgdmVydGljYWwt PNncS931YTFxzUkqMjWj HHLhKP9ajLnriOJ+ RC27ip36E0KmKewtVkj6 GQTqGSY5bMT3uJ3aXOVa MGqer1Z8mYQ5O2XvfiEj hm5fw7llBIEfOYcy H76wdHBvd2T8UMHyzRU9 EOZaiCqlGaDzvD86Ryo+ CHAinXqmt7EwSvrwh0fv s2xgpCq5SuIfGJKk bwJtkNsjAXX2n2BuFz93 C30wUJseAWOzDXNaJEDq REVmaMfard7ktT7iQt3+ EMOejJY4wAJ3xR3s KfMqNmT8HLdmU952AoCj vTSzTtgub3oue3hniDx1 IjIwJSIgdmFsaWduPSJ0 q3StTh49N0FutLtf f4CaAop6lu04fQXwd2H3 eKK4B4TsMFOekdywoPSl dGbbQT5zTLGuszrmFOJy nG5aJJIsV3c1PcVd BeL5UOfeH4TrvsN3DQLc dTUmANQcyGGEmZ7mayvm l1irfisjSdXyNSLmKPf1 JFm8LZXqxEijQzBo PJL9FvI8WBX7uSLvtL4k cHhsaitluL8rRlu+UGh5 o3cegQItEZ1ffSN2SS17 CT55wHLhy4U7sIM9 U0JzGDZkakrzgqlabPK4 CEFuCZIckA75Jm0sqXxv Jw7pGKHdJTI4SXVbaSVv X9FdrX4mOnRaKWWp CCBjU0UqfKPuJFbiF653 XYdzVmZ5WVEolkBvH6Pf OSMhzYqyVbA7z6K4Ij9Z SB64EW45NW96pJNv p9Z0cZK9U5HaTCOurunv ichtvUY2KWXnOQPrhY39 Vr8wvEjhMt9gFBKvHUP5 MTOknCAoL1JyxN6g EyUuPOIoJLNyI6OzpQUx HAnmW954BJvxAoU9VSKk eaIeD3AmKUQemWfdQqX1 f0N5Uw5FSx08YM84 IL66zDUst8J7jKX9P7Kp MPBodxtgwkossVN2ZLQm INHxvT39Fx8ruXyjYu4g UPStBRA3YWRyjPQo N3ZutR7vDcXxTQHtDCUa N4YooMXmSBtzR805RLei KdM9CBJuqiXcY4QdDVOc eEgaJhJ4z3K9Ug6Q GUchlst1R0FsCxndmXZ+ SE64VUYkGK10bVZmqCKg t8octZt6FgJaKTYrAHL9 kMnsZAskr8LdYMEu Y29 (more content not included)... Normal [facility] ED Clinical Summaryon 2021 ED Clinical Summary [facility] - Emergency Department [address] [place], [place] [address] ED Clinical Summary PERSON INFORMATION Name: LIANA KAUFMAN Age: 46 Years Sex: MALE : 1975 MRN: Acct#: Visit Reason: Syncope/Near syncope; SYNCOPAL EPISODE, FALL, FACIAL PAIN Arrival: 02/14/2022 10:04:24 Discharge: 02/14/2022 11:12:00 LOS: 000 01:08 Check In: 02/14/2022 10:04:24 Checkout:02/14/2022 11:12:00 Address: [place] [address] PCP: Jessica Quigley PROVIDER INFORMATION Provider Role Assigned Unassigned QUINN ADHIKARI ED PA 02/14/2022 10:08:02 Eryn Florian [employer] Nurse 02/14/2022 10:18:48 VITALS INFORMATION Vital Sign Triage Latest Temperature Tympanic Temperature Temporal Artery Pulse Rate 97 bpm 97 bpm O2 Sat 99 % 99 % Respiratory Rate 18 br/min 18 br/min Blood Pressure /87 mmHg /87 mmHg MEDICAL INFORMATION Medications Given: Medication Dose Route tetanus/diphth/pertu ss (Tdap) adult/adol 0.5 mL IM Allergy Information: penicillin PHYSICIAN DOCUMENTATION Patient: LIANA KAUFMAN Age: 46 years Sex: MALE : 1975 Associated Diagnoses: Syncope; Laceration of lip; Chipped tooth; Elevated blood pressure reading Author: QUINN ADHIKARI Basic Information Time seen: Date & time 02/14/2022 10:08:00. History source: Patient. Arrival mode: Private vehicle, walking. History of Present Illness 46-year-old male presenting to the emergency department with complaint of syncopal episode. Patient states that he was coughing hard in his sauna room when he had a syncopal episode lasting a few seconds. He states that he went syncopal secondary to the coughing. Denied having any chest pains, headaches, visual changes, shortness of breath, abdominal pains, neck or back pains before or after the incident. States that he did cause a lip laceration and a chipped right front tooth. Denies any pain with movement of his neck or back, denies any teeth fitting together abnormally, denies any pain in his jaw or his midface. States that he is on EMS and believes he had a vasovagal syncope. Denies any other complaints. Review of Systems Constitutional symptoms: No fever, Skin symptoms: No rash, Eye symptoms: Vision unchanged. ENMT symptoms: Lip laceration, no sore throat, no nasal congestion. Respiratory symptoms: No shortness of breath, no cough. Cardiovascular symptoms: No chest pain, no tachycardia. Gastrointestinal symptoms: No abdominal pain, no nausea, no vomiting. Genitourinary symptoms: No dysuria, Musculoskeletal symptoms: No back pain, no Muscle pain. Neurologic symptoms: No headache, no dizziness. Health Status Allergies: Allergic Reactions (Selected) Unknown Penicillin- No reactions were documented.. Past Medical/ Family/ Social History Family history: No family history items have been selected or recorded.. Social history: Social & Psychosocial Habits Alcohol 01/27/2022 Alcohol Use: Current Type: Beer Frequency: 1-2 times per month Substance Abuse 01/27/2022 Substance use: Never Tobacco 01/27/2022 Smoking tobacco use: Never tobacco user Electronic Cigarette/Vaping 01/27/2022 Electronic Cigarette Use: Never . Physical Examination HEAD: Appears atraumatic. EYES: -EOM intact, PERRL -Nystagmus: No ENMT: Ears, Nose, and Throat all appear atraumatic. -Front right tooth is a small chip, he is appears stable to palpation, no pain with palpation of midface, midface is stable. -Patient has sustained a 2 cm laceration to his upper lip, this is not through and through but does gape open when spread apart. -No hemotympanum appreciated NECK: -Abrasions or contusions: No -Tenderness to palpation: No midline tenderness -Range of non-tender motion (for patient): Normal CARD: -Rate and rhythm: Regular -Murmurs: No -Rubs: No CHEST/RESP: -Pain with firm chest palpation: No -Respiratory effort and chest excursion with respirations: Normal -Breath sounds equal bilaterally: Clear -Wheezes: No ABD: -Appears non-distended and atraumatic -Bowel sounds: Normal. -Deep palpation of epigastric, suprapubic and 4 quads: Non-tender -Organomegaly palpable: No -Abnormal masses: No BACK: -Abrasions or contusions: No -Tenderness to firm palpation: No midline tenderness : Pelvis stable and non-tender to firm palpation. EXT: -No obvious deformities -ROM (for patient) in all four extremities: Normal -Tenderness to palpation: No -Injured Extremity(ies) distal pulses: Normal NEURO/PSYCH: -Patient: alert -Signs of intoxication: No -Oriented to: person, place and time. -The patient's appearance, judgment, mood and manner: Appropriate. -Grooming and personal hygiene seem: Appropriate. -Abnormally-favoring gait (for patient): No Medical Decision Making 46-year-old male presenting to the emergency department complaint of laceration to his upper lip status post syn (more content not included)... Normal [facility] ED Note - Physicianon 2021 ED Note - Physician Patient: LIANA KAUFMAN Age: 46 years Sex: MALE : 1975 Associated Diagnoses: Syncope; Laceration of lip; Chipped tooth; Elevated blood pressure reading Author: QUINN ADHIKARI Basic Information Time seen: Date & time 02/14/2022 10:08:00. History source: Patient. Arrival mode: Private vehicle, walking. History of Present Illness 46-year-old male presenting to the emergency department with complaint of syncopal episode. Patient states that he was coughing hard in his sauna room when he had a syncopal episode lasting a few seconds. He states that he went syncopal secondary to the coughing. Denied having any chest pains, headaches, visual changes, shortness of breath, abdominal pains, neck or back pains before or after the incident. States that he did cause a lip laceration and a chipped right front tooth. Denies any pain with movement of his neck or back, denies any teeth fitting together abnormally, denies any pain in his jaw or his midface. States that he is on EMS and believes he had a vasovagal syncope. Denies any other complaints. Review of Systems Constitutional symptoms: No fever, Skin symptoms: No rash, Eye symptoms: Vision unchanged. ENMT symptoms: Lip laceration, no sore throat, no nasal congestion. Respiratory symptoms: No shortness of breath, no cough. Cardiovascular symptoms: No chest pain, no tachycardia. Gastrointestinal symptoms: No abdominal pain, no nausea, no vomiting. Genitourinary symptoms: No dysuria, Musculoskeletal symptoms: No back pain, no Muscle pain. Neurologic symptoms: No headache, no dizziness. Health Status Allergies: Allergic Reactions (Selected) Unknown Penicillin- No reactions were documented.. Past Medical/ Family/ Social History Family history: No family history items have been selected or recorded.. Social history: Social & Psychosocial Habits Alcohol 01/27/2022 Alcohol Use: Current Type: Beer Frequency: 1-2 times per month Substance Abuse 01/27/2022 Substance use: Never Tobacco 01/27/2022 Smoking tobacco use: Never tobacco user Electronic Cigarette/Vaping 01/27/2022 Electronic Cigarette Use: Never . Physical Examination HEAD: Appears atraumatic. EYES: -EOM intact, PERRL -Nystagmus: No ENMT: Ears, Nose, and Throat all appear atraumatic. -Front right tooth is a small chip, he is appears stable to palpation, no pain with palpation of midface, midface is stable. -Patient has sustained a 2 cm laceration to his upper lip, this is not through and through but does gape open when spread apart. -No hemotympanum appreciated NECK: -Abrasions or contusions: No -Tenderness to palpation: No midline tenderness -Range of non-tender motion (for patient): Normal CARD: -Rate and rhythm: Regular -Murmurs: No -Rubs: No CHEST/RESP: -Pain with firm chest palpation: No -Respiratory effort and chest excursion with respirations: Normal -Breath sounds equal bilaterally: Clear -Wheezes: No ABD: -Appears non-distended and atraumatic -Bowel sounds: Normal. -Deep palpation of epigastric, suprapubic and 4 quads: Non-tender -Organomegaly palpable: No -Abnormal masses: No BACK: -Abrasions or contusions: No -Tenderness to firm palpation: No midline tenderness : Pelvis stable and non-tender to firm palpation. EXT: -No obvious deformities -ROM (for patient) in all four extremities: Normal -Tenderness to palpation: No -Injured Extremity(ies) distal pulses: Normal NEURO/PSYCH: -Patient: alert -Signs of intoxication: No -Oriented to: person, place and time. -The patient's appearance, judgment, mood and manner: Appropriate. -Grooming and personal hygiene seem: Appropriate. -Abnormally-favoring gait (for patient): No Medical Decision Making 46-year-old male presenting to the emergency department complaint of laceration to his upper lip status post syncopal episode. Patient states that he was coughing hard and had a syncopal episode lasting a few seconds. Patient states he is on EMS and indicates that he had a vasovagal syncope. He states he did chip his tooth and it caused a lip laceration. Denies any other complaints. I discussed CT scan of head neck and face and he declined indicated he did not feel this was necessary. EKG was performed and shows normal sinus rhythm with ventricular rate of 93, no acute ischemic changes or arrhythmias appreciated. We are both in agreement he did not require any blood work or any further work-up for this. Laceration was cleaned and repaired by me in the emergency department, 1 suture was placed inside the lip secondary to gaping laceration. Told that this will dissolve on its own return for any signs of infection. Patient states she is allergic to penicillin as when he took Augmentin he had upset stomach after taking Augmentin, states he has had amoxicillin in the past without any issues. I discussed giving the patient amoxicillin, he states that he just started Cipro yeste (more content not included)... Normal [facility] ED Note-Nursingon 02-14-2022 ED Note-Nursing patient arrived to ED d/t a near syncope episode. Patient was in a steam room had an coughing episode and woke up on the floor. Patient fell forward hitting his face. Has a bruise on his nose, chipped front tooth and laceration to his upper lip. Upper lip laceration was oozing. Normal [facility] ED Patient Summaryon 022 ED Patient Summary [facility] - Emergency Department [address] [place] [address] PATIENT DISCHARGE INSTRUCTIONS Patient Information Name: LIANA KAUFMAN Age: 46 Years Date of : 1975 Reason For Visit: Syncope/Near syncope; SYNCOPAL EPISODE, FALL, FACIAL PAIN Arrival Time: 02/14/2022 10:04:24 Primary Care Physician: Jessica Quigley Attending Physician: Levi Vogel MD Comment: Visit Diagnosis: Diagnoses This Visit Chipped tooth (S02.5XXA) Elevated blood pressure reading (R03.0) Laceration of lip (S01.511A) Syncope (R55) Syncope/Near syncope ([id number]) Prescription Information: If you have been given a prescription for narcotics, seek immediate medical attention if you have any difficulty breathing or any sudden status changes such as confusion and sleepiness. If you or anyone you know is experiencing suicidal thoughts, mental health, alcohol and/or drug addiction problems; contact the [facility] 13/02 Crisis Hotline -Text 4HVDZ cj 135893. If you received any narcotics, sedation, or any other medication that causes drowsiness for the next 24 hours, unless otherwise directed: ? Do not drive a car. ? Do not operate machinery such as power tools, lawn mowers, drills, sewing machines, or stoves ? Avoid alcoholic beverages and drugs for allergies, nerves, or sleep ? Do not make important personal or business decisions or sign any legal documents With: Address: When: [facility] Within 2 to 4 days Comments: [phone], follow-up with dentist for reevaluation of your teeth next few days. Return the emergency department for any worsening issues or any other problems. Continue amoxicillin as discussed along Peridex oral mouthwash. Return anytime. Tylenol for aches and pains. At family friends keep a close eye on you over the next 24 to 48 hours return immediately for any abnormal behavior, confusion, trouble walking or talking or any other signs or symptoms of evolving head injury such as severe increasing headaches. With: Address: When: [facility] [address] [id number] Business (1) Within 2 to 4 days Medication Information: The exam and treatment you received today in the [facility] Emergency Department were for an urgent problem and are not intended as complete care. It is important for you to follow up with a doctor, nurse practitioner, or physician?s museum assistant for ongoing care. If your symptoms become worse or you do not improve as expected and you are unable to reach your usual health care provider, you should return to the Emergency Department, we are available 24 hours a day. For those patients who have received Radiology results, the interpretation of your X-ray as given to you by our Emergency Department physician is only a preliminary report. The Radiologist will review your films and if there is a change in the diagnosis you will be notified by phone. Please make sure you have provided a working phone number so we can reach you if necessary. In the event that you had a lab culture while you were a patient in the Emergency Department, you will be notified by phone if there is a need to change your antibiotic. Please make sure you have provided a working phone number so we can reach you if necessary. [facility] Emergency Department has provided you with a complete list of medications post discharge. Please inform your conventional underwriter/provider of your visit and for further instruction on these medications. Any specific questions regarding your chronic medications and dosages should be discussed with your primary care physician(s) and/or pharmacist. Medications to Continue That Have Not Changed [id number], [address], [place] [id number], [phone] amoxicillin (amoxicillin 500 mg oral tablet) 1 tab(s) Oral 3 times a day for 5 Days. Refills: 0. chlorhexidine topical (Peridex 0.12% mucous membrane liquid) 15 Milliliter Oral 2 times a day. swish and spit; do not swallow. Do not use any longer than 5 days.. Refills: 0. lactobacillus acidophilus (Acidophilus Extra Strength oral capsule) 1 cap(s) Oral every day. Refills: 0. Additional medications on your home medication list not specifically addressed. Please contact the ordering physician if you have questions about these medications. albuterol (albuterol 90 mcg/inh inhalation aerosol) 1 puff(s) Inhalation once as needed for wheezing. antihemophilic factor (Kovaltry recombinant intravenous powder for injection) colchicine (colchicine 0.6 mg oral tablet) 0.5 tab(s) Oral 2 times a day. levothyroxine (levothyroxine 175 mcg (0.175 mg) oral tablet) 1 tab(s) Oral every day. predniSONE (predniSONE 20 mg oral tablet) 2 tab(s) Oral every day for 5 Days. Refills: 0. sulfamethoxazole-tri methoprim (sulfamethoxaz (more content not included)... [facility] Coding Summaryon 02-05-2022 Coding Summary HTMLBase 64 GkgtbcwdUEd7lHp+PGhl YWQ+JT5TSYSfZ92gyMTc tR7ME9rSLM9AJLTGXKJV FG6RQJ1tlPU8MAooU1Dv biAv JzzwfUWpAE20SUh0QOL3 wXjrDOkchF1ptJAsZ7q9 QeFfRA60mU45MAnnPCNz GnU5RlFaopeqnDEr Z5zcDxHaxSGaFxd+PHRh YmxlIHdpZHRoPScxMDAl PxJmhUlxCU6dKb8dOQGn LWNvbGxhcHNlOiBj o4pwGJXnGDwmHX5tdTqf J2UstWC9GRLgf5m6Fq85 dHI+LPRbCKW5aYwyOOfi y174JwHbb1knIKG1 zOMqKArbWVP6P48gt5P2 ORPrAVNtQFZ7rLC4zM6u bUhvothiO6CvvKUfKlS2 YTJ5nJVbcL0rgWvf yemgtJ8vKir+W36HEW0N DPZSLE7FAjb2P1OzPgrt dHI+SP48WLViLL44sBGh nCMco3aqpQj1DzIy DOOiUCW7lGdmVFnyg0Vn CNPoW06cyGPah2Q7JKNd jBihoNCvDgSwpZI1hG7f POtlhgwct0dnpweq Wsljw2awpl21kZ02Q23l WIikLLQvNWE3DOYeDJLy vFbxho9vpD9tKn5+IDxj m3hdc3phdBw6DpLg BVDqdxUtuYlsFIU4s9Zw Rq86W8GsnTyzn3SdBrj4 ea24sCSjq8T0yGH6EFnp HGXcwK7yWPoiEfV5 JRTwMmJafJ55nMQpVEba Jn0byPvfhRqwGH2vNTQp malfWQJzrE1zLQYuwYEc kTpiKS3eVRXbqifq e602OkQbMSE1CNLgtOGf M0RyjC9jKrBcJEWsMURa P5QoiJFeRSvtY617NJgl ZwX7UQJkveVrE2Ee SQDmmMucUlR0h8H2Ar2V l5GiyojfFPB5RQtyCDA5 TzW4BaQpFiT5W0MzJzn5 AMFqnHglVU2dR7Er IVEqpvedppmvkOZ7GJEm RLZmwE33dSRdRWkrAv3l e6X6o193LNPiRNQzxG74 Fu4efNjuXYMjeEIE yO1gylfuz9afvvxcUrJp FSIgDGn1OEe2JLUzbJuz CiFnQYO5OeI2XXM0aWVb yG3yaMesvfnxxO6m Oyc+C56yoM2cOUU4MCB3 onbgMYZqjjUnLL27YP72 N3CfPtwzgHFcgYD+PGRp qrQorSxiPV5rJuXm y6php0RmYCudI8MmNMVh RNswJvw8QYQiPTV0pNX6 tI8uAVXmPGgyt7N1qJP6 R9OftcZvmw0xj1eq RQWdFIasA67hdGFka4F4 FXUdwUC7JJMyuHuyPpXz bO07Ehh+HSZaqXzqw1Hm Ppkkl5pzz2sfnEy4 IjMwJSIgdmFsaWduPSJ0 h0PmGx77Q90yIXlwSTWl DVRnSUDgEPHvkWczwi9v qC3xLu7+PGNvbCB3 oXX0zR8yRHCsPwD9FVeu H034AqAseKJsMsnlp3xy j6njeJe3ZgRsCWQqyfBa aAahKAO2u3AdSy23 I16qTSmmFOJnGPFyYJZz JLXppYuovh9yeG6vLj6+ NY3hr2qlnf61kC11rWR+ YOUtADV7mVidZToo KBDpyZ7tWFhhFoI7MIAx JzBirP64xGFnMQjzSx1h dLecuSguVW9sOCCgitld y805WvLzg5fgOIQu ePKvMDjgYUR7A14tj2V1 XCKmDQIqCMV4gPK0yD4m bGlnbjogbGVmdDsgdmVy eGeySInaMJarS805 IHRvcDsnPlBhdGllbnQg FlSyEEe3D8DuNmx4QZZm iHrvMY2huSFhKJszQc3a iLaziMcbWN5rWJEs pfebc394QgNam6tzDJPj jVJkAOidVXR9N92kr1C0 EREtCKOlVHJ7zLP3qK8w bGlnbjogbGVmdDsg pqOocSmwHHwsTQzbY329 IHRvcDsnPkJpcnRoIERh gGP0CV41LH48eOQzz3O1 aCH4U3WzPMHfveua mqmpdKW6GEPgWPDkdX97 Vl3gfRjxIk2nPSRfMNH1 ZQItcFKxL8CqwF3aOlNc RKRpSFCfG3MkkIQl IKzdB962CKvzVxN1UWZp cfHaG2NhCYIjfIfmSqK1 j4B0Qz0JC1C9RW00BV91 gYWhd2T6nMM3Y8Nf MFBgaojhrbfdvST6TONa UWOosQ35Xu0slDjpKp1q EVOvRXP8XMTcdMReW2La qT0pOhCkOEMxIWFr J3RmiDFeDUcvW598ADme YxS4URLlgkNkG6WoNAIt qEphTqI6v3O7Jj2SPBj7 FY48PO57lYUwx9I3 ySF1O9BmLMOkzhsovpzu uGA4YHRhJLAxwC52Lr6i yGnqVb1nXDXkFET7AAEl xDVsV5XzlU7tXlHv VSYkDSWeP0MslJKkEAyg X359RQcyJfS2AZHittLa Y1LcJNCcaExlVcS0x0K9 Yw3KZGQdAP89DLD9 dAG3JH99VI24U7AwYezg dGFibGU+PHRhYmxlIHdp ZHRoPScxMDAlJyBzdHls LT1lNf1cWWLjZUYo cMaacTSbZgIdz4bmNYYt FKjqRT7nuGacE0YiyFU1 EWHic4f2Lx18R70qV1Sn dXA+LDUrnLW6eYT3 qP0fTnOaDkS4FZdlB796 CwRcmZTdBioqw2spu0ok bPu3OrY8TTFpycBduMir UHG5u4GdKn17F59e IHdpZHRoPSIxNSUiIHZh eSraoc8gmP0lNb2+PGNv oDS0iCG1sY8vJgFjWuN1 BLjgZ043ClJmnKNz Sluzy9jeu6qvcVi0RlNh CCOfrfJdcTmnOQN1j4Qh Bs84B9DhaAgor4OgWvr1 xf39nLUte4H0nYJ3 X1MbSMVsegahnVVgxDkn DX0vJXLqhqbnEYAjvO6c MVBqZ8o1LzWbUdS6GPkx Y4UvswB1DGIcnCIc ZYtwZKN0N10yx7C3UEZv SUWgMYW2lIN4tB2zaAro bjogbGVmdDsgdmVydGlj XBwyWPjhE908VJHl zXvrDWZdnZ6xLPEtsHPo fMrmDC0sOUXrmnldXy4I UNySH2LoIU3EW6yVMZqg Sr3DTTHSYL77TH43 eQJto0U9rML6C1TkBOWf uitiwajjsVP5QNEjLUTz qX44tTEkEBmcVl1ks0P2 g527PMZvEEFtcA44 Au5sgIdfLRXkoAOMuO7z sixsf3thsmfkOgPvJZPx KFv9YKp4QRRgkEbaNyLc UYH3IyL4BOJ7eJBe oH1ybVmmudavxM7mEmx+ UCMcTNPhYQe5ACwgrID+ QMUwPBF9hLncENssHOEd lP7sESYwV8f7IzMa YfX1BMerR2HfXNDlrazo Fy04wQ4cOxUvSvW9ZLtt J9SzjxH6LGHyqHAlLDhj CZN1E40fh9Y6YPEu PANuEUY1cKN6gO3cbGnj bjogbGVmdDsgdmVydGlj EPnfSPewP077PDKclGig DrK0LLitZCPyTL70 MT31zETub5D2rUS0F7Tu JSFslbzzydutrXJ2HHGy ATLzaI00zPGoSCndNk1u d9J7a753UOCpMAMa vL82Qg1xnRzzRTGrqCFS zK3bnnsxc4isnbfzXwMm YOHcXEh2KIh5GZUjyNtw SwZoUEO5PdU3VNB1 pQSkaB2ecBqokdhudY6p Oyc+TUFMRTwvdGQ+PHRk RHS7wIklNDdrPKTeyJ9e RLRcH6s4KrPpEbX8 OLpaD5VjWYRsyggkHh96 pO4qHaWyYqM9ZDpiV8Rq vcX1ONQfhNLuBKfmMVB3 T54mx2O2AKKmADTo NFK9mBN0vW8ylKdrbbcn bGVmdDsgdmVydGljYWwt FHsvX364SUJibDmuTl5O LQ24QL99G8FcWber dGFibGU+PHRhYmxlIHdp ZHRoPScxMDAlJyBzdHls OZ3aMq7tOAQjTGGfeZfg dFKmGlGly4sxELJj GSnfZN6qhBqrO0TovSA7 HGBno7f5Iw36J50xD9Hm dXA+EORsmYL3cIB3qR9v DbUsXjC5BYwtI691 BtWanLAzPpwat6klc8nk gXn3CcFpSZVtyhOvgKtn WPH3c0UkUf82Z83eCTkp ZHRoPSIyMCUiIHZh uCpvgw3goC4jPx0+PGNv zEJ1bSX9xM4fYsQwWwN7 AIwdU060HwVrfQZoXxsd Y79oA4WohCJ+PHRy Ftv3YDKgcSdjNB7ogHEs FWkcZj2vLRP3UhEhGdEc EVvbQ2NjAAPvesnxufwh pCS1CNBnMMMetR21 Sv3unKilOm4tPCUcNSI7 YDItpPMlZ3ZtmJ9dIgWn QDLuRRDpY8VfmHCuIDkl I511WIdmPlS1JXMj npXfA8XuBJVwqEncZkD1 i0X9Td3KuFhrgKFuGA1y PvNqGDa1I0CiFew2KPGj gYrtZZ6fhIYcZUez Gd6taYmocPdfXF2yNEYg khlhw397DqYhx9ehDODx kOGjCSxzIEZ4W57pg4C2 NQEqHZUwNPH4mCE2 fX0sfLueyjbmgKLxcAke vsFeuDjxASqsWFayY082 FYXtoAnjUxBPSfx6G8Wy Rsj1DTAtdQufXF8n oTSdJJamZm2qeOrsjNnd TJ9aPOIpzkfvx837ZkBc l3beEMXvbKNyJHhxIFQ2 D02ge9C7SQJtOQQj ONW8sLR2dO4ctKfryvyz bGVmdDsgdmVydGljYWwt FEowH724TYZitVqqVe3L Beu8X1CnUef7PWKx gQvkWY9poZGaBRrhEd1n kBieaMwcOY2oKTCydabx f860OfLfc8weYKJbkFGj KLxaNDV4T20jl1U4 LQJnLWMpORQ5vQN6mL7k bGlnbjogbGVmdDsgdmVy hPxlWNkaMBmkW362XGFj cDsnPlBheWVyOjwv dGQ+IO37te81J7XcDdte Nke3NPBhRRA8tEK9iT4u FKNpOWrbx6T0fRS1U9Zh ibVyrh6dh2ctEDLa ZTo (more content not included)... [facility] Coding Summary HTMLBase 64 CwwouwkeNKu7jFn+PGhl YWQ+KY0CLFEcX32laUTw iR4RD9tDXW4SESDVJXJU GW8SNZ1umNN0TAtoP1Kt biAv BwhjsGPoFT51UPx9OJH3 qRlqVJuxoJ3rmBAdZ0p6 VsXnRL83gU99XJaiOASa QnQ6IpLbklrylGCr Z7urPlUjxZVoUyo+PHRh YmxlIHdpZHRoPScxMDAl GaVuxJveJL1zFa5iSFBh LWNvbGxhcHNlOiBj j9hjZHOpHYyeMJ7tfVfm J1ZdmJY2LGIir8j8Oa17 dHI+YKHcCZH0fNrsCOlo l390LaAln3ipEOJ3 wTYvPUduCRW3S12ke6F9 QLYtSHNzQCQ0oRN8pY6i fVoxvwmoV4OxrOPcUrE6 FWM0pGPiwH8yeExn xuotfD2iKve+Q75KHF3L LEDGWI6YUlp2H1PmKfan dHI+VV61IPBhLI14yKLm tOGof0xpaIq3WnQo CYTyFFX6kGgiFZnox1Tv WIMaZ73owZHpe1W1OIHf yXmctDXcPhEtyYP9xX6y WBloflhao0hktlqg Vpxzd6evnd70pS01V62e EPlfEVBzXCY5CKObDKTk yNxjuk2suC6qYr2+IDxj r6ajv7kdyDp7BjKn NKIiklCmbYezQXK6f1Tz Ff66Q5EnwYfqm9VrVps8 ea85oXQnc6J7gLJ9CDrz ROKttP4pDIcdAjN3 JKPjQuUoiI30pRXaIIat Oy0lkKfqcJztKR2aLBJo sgfuDMAbxM3cXLDyrUTa aRpvZH5uCDXjlbql z327BtZdHER8IHTvgCAo K1LppQ5nOiCuWWZjQSHv S8TihMFlZWvmD828TStp PdZ2DMXgjdEoI6Xz QCZkxNynMeW1a0Q7We2C p2WyorbyKNY2WUqkZMH9 CbF6XeEkPqR9H7QtGwp9 ZRUalBxkLK7jI3Bu IEEmtltrfngooNK4COSr IKYgoU58bRWsTYvrYw4g h7N9p049YJYeZZCsfS86 Ht5xoEdiFQXpzCMN rF5cdrsax2wuiyvfZdVx XRAbBZx8VBp8HYVikZom TfEdXTT9QwS3JJL9uHGl dC8oyIazxndqnK3f Oyc+G52dvN0jEHH2OHC3 svwwMPVbfvQlPJ09YA97 G3QySeuxrUDfzUU+PGRp lyNizXkaJU6tSdIu l0otc5UpNKuuZ9IbVARg BQvyLzq1HLKsCVX6iOJ5 hE4lWPWuPBzlm3U3oAO0 I1KethQkda6dg8pj EMPrRMcxL17pnFQla6F6 IOOihUK2FYBizNguRqWw vF80Rpn+ZSCfjEjag8Cx Mtehj0ylf0mcjIr2 IjMwJSIgdmFsaWduPSJ0 r1JeQw06T55eXUtbVMQz AISlPUGkDSSqeSywuc2r nX1sZj7+PGNvbCB3 pQL2sU5nARQyRaX9JDed O997ZnYcfWMwWpbpx5cp g6lrnBp9ZyYgZHGpjkJc cBciELU2u0XuPr50 Q97zBHiqBXClVGDgJQNj WQYurDnovq5atZ0aIv6+ BH4td3gycj85qM21hGP+ DOSoDUI9xGmkZBnk RGAeaQ5aNMhsTfI7MMLg SiUdgA62uDWlBPjnMf3i nIfexZzwXP0tXWUprpjw z072JdNyx1etQHNm mRWhJOtyTCF5L62kh9Y9 LIMeUJRfOPA6dYO4uF2h bGlnbjogbGVmdDsgdmVy nBfhFQfpOFjdR229 IHRvcDsnPlBhdGllbnQg XwSgQQf6L8EaRrw7QZEz oQkrGO5xsMKaVLjkHs2d iAapaVxbDG1oZSIo dnfit552LvJjw0hrMEDk pZObBTzeJJW8A70uv4P4 IXVoHTPbRBP9cFA2qW0l bGlnbjogbGVmdDsg ceGmwAazGDojJDjnF133 IHRvcDsnPkJpcnRoIERh nTF0CC28LM39bPXqd5D5 cSY2V3VqCUIzopni kthxfOT6UAVsMCGkbC23 Hb5fyByoUh6vJHCjZZL7 IUIceWZwP7KupG6dRkMx YEQfSSWwM5DtyLDk PHbuB213MTfkTtM8LZXg yjGcK5NiDJIusJgnWaC7 y1G4Mu0QY1E2FF54ON26 eINpe2U1bGP7V7Ct PFLoxugqlghbtPD6LJIq FCLuzD85Ow7ilMneFa7h KPFtXHK3TZEmvEZvR6Pe kM6yNwLdLVQhFTXj G5CfeAFoRJraT140TJnz VqZ7UJFvrjKoS4MhZBIs iWsqMhG3q0C8Jj7GKBd0 GC88JJ45nSHcj5X0 nXY1Z6EaLRPyfzbiiblm tIB7WTTaPPOsoG52Qt3m yAldAh3iXWGyTPG6IRJv gEEyT1VpoI8cQlOu HSIaSYNtD6TzvXKrIRrw L491OHxeJjG3EAMtydUb I7XcMKSelKztKeT5k9Q0 Sq1PNNDqPV72KSZ9 aBT5WL54WH84I1VuPnfx dGFibGU+PHRhYmxlIHdp ZHRoPScxMDAlJyBzdHls LD9kFg7bBBAaKINb yUlwvBBdQvTgp0ugFZBk MRqyZX6ckZcfN3ErmEH1 YEOmd2q7Gt91U07bA5Bz dXA+NMUldUS1oUM8 gY5uIpVuIvR3GLmdJ587 RyHtvYDzUymkt2bph1ez zPt0JxU8FZQhieWrzQzm RUG5a5BnEk85L57c IHdpZHRoPSIxNSUiIHZh jRkltq4zgV0gPf1+PGNv hKY9fOV8aN3qVhAdZfK7 BXjlU673RmYzmUDn Rmlbj0bci3jggOe8YoXf FSAhenDggWlpFBY7d9Uc Gh15P3NvyAzvr5ZxHma9 ul98nGUai1C4tWS2 Y9DuOQNrturenDUgvZuj VR2jGPEmwvkjITCdkR3j JHFkQ4d5TnWpEyZ3WArp R6LdjzN4ATUzrEBj EIdzDIM1D98kx3G1OQSm OYEdZWR9uZK7jG3mlIrt bjogbGVmdDsgdmVydGlj UIukSHamR877UPNe zGnwDDNldU5nZUBkgKIp qZywNZ9xLCZjavizYg8N QZmEI8HqSP3QH6oSXPfb Ui1VKCBMSV51FI42 tUNvq7C9hGD8K8FxCUJz gidmliwcsRJ0XZZjYEKu zG94zVQeNAnnFj8az6D5 v948ELLzWULkkK31 Tq3ewTkwJKZcrPKWpN8g gfjwl2mfighcDdRvMCVx DIe4PId9IDXxmTnyQoYn LNZ8BvP9XJA8iMIg hB4hrFmnhqxzoQ3sDqs+ WCZsCVFrHKy4PVnkzLF+ AUFaLXE5mXsqVHelWRGo eH7bWLGjV9g2BpSg EaR2VSojZ4GvFMYjmdzj Ge99dP0pOyTcQcU6VTxu P6ZapcV6YTQjyNTbFNqm BVR7B77pw6N2WVMh QZJsJWZ7zHP1kV6juGhr bjogbGVmdDsgdmVydGlj QVkyMFsqG288MIDefMoz XnM4GZulSYEaJA50 SL93yMUgh0O9rHT6W1Yg GHCmoxekyjdllOW0PVWy NGGdoJ68uVNoJJhzLg4a d0D3x379XWIlZKGy uW67Ic2olLpcDOVynGQW sO0mazyfn2neljciUdBb HIStHOb8KXo2JWCwrJyy GrWtWBK1XsK7XPY3 cMWeyP8raEiyjpqemC0z Oyc+TUFMRTwvdGQ+PHRk GDV9yXjhSQcdNPGudV8g IFKuK1p6NxJxIrE5 EXoyN8XwOFJfdlvxFz69 aP1iZnXmVgI5DBldM4Ui koB2NCOxfUBkIAjlHHA5 K95zf8R3QFLjVXGc RBT5mQF4kZ1ncBuchnbd bGVmdDsgdmVydGljYWwt JSfjG181JCRlcUnjFuCk CLZqET9ojQhgtHQ+ BH91ry58I0DpVfjhTmx3 OXYyMFJ2bCS0xH3vMQLd KGahy3E5dVZ7K9BgdxGh uq1gf2nwBFCkMFzd L72efBCxt8J8HENugEQ7 FMSasUqpKwAbyW51Rvt+ DFPmdFgei3NsEfaml3xn t6gcuYl8DnWrUYUz rdQrqZltMXR1e2KjFx96 B47tGLmvTWUpGVDrAUYw JCDlzEbszi1qhI8mTj9+ RLMadPE8yTH4gB1a NkQcHqD4FRnkW920ZxFf tLBoVebxt1lau4vwcCm1 IjIwJSIgdmFsaWduPSJ0 a3IsTq76S5OofJws k9JqVbb9fg09oAXok1P6 yNZ7X6NfXVMkddhbsIYb dLfkGP6cAYEpxcsyYXFl oV6fIJZqI5m3FmCn TaN8YFwoT1YvyqY4QMRk bVIaEXLmeJOSjE6nbrxd f7hcwpseThPnNJTsBOh8 LMe2LZEkjNuiNgCi BST4KvE3LRQ8rUXbcD4e bOfybipkaP5wVdm+UGh5 h8muoLBlNT7skSJ9KJ91 JW10eJMyu5P2fRJ2 S6CcOIOkvddajinmsQR1 VTGoFZTwzF66Aq3itDkc Ob3xLRKlLBJ6JGLasCUt D2TplJ4oUnTiZNTq RBYwU0PafWYrQIteE207 VIpnAzU4CYYeljLkP3Bc LWQatPxpQpN5a6G1Ye6J HZ84AG93IA31yDVz a2X6cUF4Z5VlFQElzebv yksioIQ0NJMdNVYgeA44 Ak4grHvaYv8wPDVyMRS4 ZKXjcGOzV3GvaZ5u ApQmPJTmBBUyO0TlfGJl CFvqK011BRlhEjA4PZGw zaPsS8DbBKGevXqwNoA2 a1H5Fh1SBy84MM75 SC87mZTpr4K4vMF4J7Mt XNJrcwwtpjhizPH2FBYo EMMfrJ03Mu4frKgjOh1c VKDdKXR9KLDvrVMk V6PchC0wYsBqJYWuKFNe Y1JhyNDnISwxS484CPsg EdY2YPAszcHqY5YmFWLy pRolMjT0q5N9Hu3T JBiacwj1M7AdOkzowGF+ UA77ZWOjWB82jVUceHRn j8rrbRy4VrEpNIJgPWK0 yFtqFSwns1BuYNBg Y29 (more content not included)... [facility] Coding Summary HTMLBase 64 GfihfcwbCEs5eXx+PGhl YWQ+EU3BXDLkS45voCQq nE8RT2oKUN3JAUEDCJBY VN7BBQ2moUF9MEixT7Ho biAv LupuaTTiFJ79HZt8HFU7 xBxgUXyojX9ppOCyP4x7 SiOmJN36iT44TQhhPEUd RzR7FzRecqqwwTJd C5gpEyRckLVrBsy+PHRh YmxlIHdpZHRoPScxMDAl NdNaqRgoJY3qKs8lWTIn LWNvbGxhcHNlOiBj k6egDVNgENnhST6rzVml J2PohOX3HJWgr0h7Os81 dHI+BPTnQFA8qVesBFou n994SbSui0ncOUD0 nHAgXFmbVSZ2C29sv2B2 IHZpQATvUSF9nQU2qC2b sOnkyohnB4KmoQBmLkX1 ZTZ1mBDwxT0qvZre hkruiC2kSqi+V52WHS3W PDWJEL0HLzn4K0BkXozd dHI+AZ26RRSjPU04oCBj wLBux1fvrCy2OiJw FSLgNTV3qUnhSSviz4Yh DWDoW82hhDDlu4L1QZSv yPpjsNNfXmVniHP0vK7w NUjlwlqks1uwtmmj Bnwqe1zenv18cQ12S40m YXxqVFMqVBF6IKZpYUMs zNawsb3iqN5eWo7+IDxj e5luh0jrlCe8DnVk DNEvgeEvfPngKPY9h3Fw Jx71H5FtoIexv2BrQeq4 sb31wKTdr6J0vZV1RZxk EEAjkM4wMNxzKeV9 JFWaWxYhdB20hANjBNuk Rt1tpXhooDhpBY9dSXUv prybIHKrwY2sELLiiXZl zHmiJS0wHIGmbeon c222ElGyGGK6AIFmmYUv A5GdzJ2pKsMaJZScQYDt Z0OmjMVtTYrkW092GIkj LoW5XDWqjpUwU0Kl KIRnaZosJeI6j7Z4Kb0G s4VsepdbKSY7JHnkHQJ0 QzI0VyFpOlR0I7WzTmg2 TPTcfJoqRV5uL1Xn GEQxbvpwphsqbDK2BEQq HFWktU83yCKoUXorFv7l j4H2q313JOXxBDNwmO02 Kq8ppZkkISQhmEDQ eL2gvkrps1lluvihZyXg CZVfMAm2ROg0XRFpjEox QoJkLCM0UvW7WPY9qKKq eQ3qaTwdnrximV0t Oyc+P54tjJ0nPUY4PKP5 halsTAEhkmXoSQ00WL34 S4VaUkxlmEUtzEK+PGRp jmLaxTjoQF0eDdXj j9kla3HrYOeuV4OgLMCz FWkmVlf4IEZkVVS9bYX1 jX0iCFOsSPpjf5H6sRQ6 M6AjnvHtex4ko9kw RFGlAJwcY34unZVwj1O1 UTNgtXS1IIOylBfsXwAm qQ13Sde+NHOfeLbzz8Zt Oditg1xpa6wmbJo0 IjMwJSIgdmFsaWduPSJ0 a0SgUx20Q21lBHciHAKq KALgMKGeNKJikVfquo2y nK8nTe3+PGNvbCB3 bTU4wJ8jXLSzGiV3ALgr B772ByQikALwNizjh6di h8hstWp9LoVzACOpfmQy aQnhNVE7g2IdPr69 L55oPGmaOQSaWONbSCBr FWNnnSqxqo4krM6sJk3+ GG0uu6uvxw09hB02zIB+ GRSmQLT2bWlgYLva VQJhoD2gCNvfQzP9CWOu YdUiyM93pCZuIDdrYz1d oIaxcFhmCB0rAQCgpvbz v460RyQzf8wuQNSc hIBwXXxzQQT3B50pb0A5 KBGbYYLlOVJ2qPE2qT7s bGlnbjogbGVmdDsgdmVy hQckUAkfAXylZ948 IHRvcDsnPlBhdGllbnQg VzCcRKy5U4BvJlf7WOMh sVfkNQ1abHMsEFyzTz8i gScwqTgyKT6dKUVe kqeey117RrJvp2zeTLLs wMOuHBjcBFK3M66mx1F7 AVOxMMWsHNT7vLD1cS0i bGlnbjogbGVmdDsg ixFmqHpaSIveWArmU251 IHRvcDsnPkJpcnRoIERh iCR0LB43RD29cICno4R2 sWC8U9UvNUDigklp dpzwaUU2BCDjXIDnhK75 Eb7ifRroAo6pVXYmHJB0 JCWspBZnO3BcrZ1nYbWl WFWeGCSxI7TptVGo GWbmX409JHsiRdM7CPPz ezEqK1LcJMLbwYtcIoU1 z4G5Px8VW4G9ED65EY23 aHFyw6F4hFG3A6Xt EFOggyvitfbspPF7EQJn DKTuiT00Rk0vyBjaNj9m RDQjISO4EYIplWRoV0Nh hX6pQsGvMWRqTPJb K5MwkPYjBQjkP063SZvk HsU7BBBalcCsS5BxWLNa tAlbZjY6f3U6Zf7RRWm4 DQ62RR97bMSvu9W1 rFJ6Q6VkULPwunrakqrg sGJ5ZVVbYQXceV43Ne1e qYggJu6mDEStUQC7IQLa tVUaR2YhtZ5wNoZh DGQoJUVsT6QnwZYzZCvh U228MOozPrY7JZOiueBp E9BiFTHjjPupXaY4p1M1 Ti2YUICkHW02POQ5 dLZ1DY83QP87I8HuTxfl dGFibGU+PHRhYmxlIHdp ZHRoPScxMDAlJyBzdHls HF5pPk3mRJFxISDz iShoeHPhTmQhj0hoUMBu SFmgAB0sdXggN3VeeQA2 ZSGwr2w2Mp84D88aW4Sf dXA+NQAxqLY0gWH0 fE8yKiJmTfN8PJisG596 XyNayNXeAqfpf4iwd6wf wPu1HdP3YOPgukXieZon ENX5w1SpGm63F47v IHdpZHRoPSIxNSUiIHZh bBdgfi8dbJ8yMa0+PGNv yCD5zAS4cK6dPlLvUdE1 BHozF409KpRqfUVa Vzich4xmp8ovlEn9VwIb CXSbkzHtoNvlLIK4i4Xt Wg12P3DuySbnc1IbQxn6 xr95dKRpt2U7rMW9 H2IaCDLczdwwdKPnbHzp EL0nUAStyhvcPFVthG5w XNQpE9p4PqMiXhJ3ENux C3ZcqgG3FEOfqJMc MWxuZNX7Y31pe4J5EUTo ESRoBHU0rKH1dK5wvYna bjogbGVmdDsgdmVydGlj EGmtQTvtU556PLGu eDoeOMYbdS0cOSVnmKZh vJjfJW7zRWKtzwckXa4L HOeLT4UoOX5PI6mNOXku Us1AIGFZEP74SS51 wFLio6L5uPD8N5CfCGXp zeqgbaljrMB2LWVsLJFo jT31gBDnSOkdZx8dm2Q9 z303QHPyDZUfxV04 Ut8qkTkyQOPdiFCMzK7f xuovc0ajhbvjQeKoALQr EYb2PMf0TFFgpJxlKtKn SWA1WwG0ZQV1pVKx qU6vaWijbrccpD5bAup+ GXZkPHCzVCi7ZQjmxXM+ IAWiNML5sCvnENzaAIWi bN2dQMOtX8k2QiCw NmJ0EEweQ3BjYPZcxqli Fu14cO2nXaTlBfH7BFqb I0NezhD7BRCvkHMbMGfw HJN8Y95ur6H7BDTy RYGkHAC6uKG8lV6ouLsf bjogbGVmdDsgdmVydGlj YFjbJNmzS963BBLleTde JaV4QPhcCLVjQC95 CI26nBBox1I5ySP6O1Hm IQGtvynfjmescIA9FILo AZFrgU14iRHhJJrkJr9f c6W4j384XEPjIJWe vD93Ye5qeUfuYOSzpHEM qF6wshouy4hqawveUkGs AADsESf9QXl6IQIrxWbz EjUsLAY2EzV0MTZ1 cDHvwD9saPqycvsiqE7n Oyc+TUFMRTwvdGQ+PHRk DSE4qIhvWLtmRMVerA2h IZHzE1y1WsRmXvQ1 TAsdC6KvHBPhszqjDa73 qK8kVkBdPhO3MKvnY5Mn viL1OOIlxAEsZIlqYFQ6 P45ab7G7SPCfUBJf ZDT4oNS0hH0rnClvzqzv bGVmdDsgdmVydGljYWwt QBdvK037AESdnRjcCmGy XYIwLG3klVeezPV+ PF67jq19I5WpKljuEtg6 STGfORW8nPZ8mA9mXOKd DUqoj7J4qQP0M4RqzxAi mg1wl1uzDRHdYDjt H78qqNIco8Q4CBEqfGS4 FUXftXpvIhBbaL62Iwl+ PIPirPytk1ByLcmxz3xc m8mylGi6PkUsIMCv vtQhoFlrZHS9q6RlWc93 O99gQCfoAXVdXAHjVRZt ZUMocBbwqu7itQ0lHn6+ WFIcpRM5sIO3xP9z PvMdMbY2AJsuO347VoCo iIXaXejtq3qpo4sygAq4 IjIwJSIgdmFsaWduPSJ0 v6FaWk23P1OdiAac t2XjJto9ts86nWKkr5S8 wZB1I8KmRSUvhjcnsKFf jTleGQ1dTYXardnhKQAw sS8yOBQdE9v8QeYh QmL9SAivH2XxkrU5QFMo kUTxALAqgWWFtR7ispgu c8gfumleGvHwFLMzBRi2 VQy4GROiySzxOpMa MGL4JtH4HEU2aLLuqM5t pPyeunzneR2iFzm+UGh5 v0skuWDxGQ5qpRS2PG99 JD76zLTyn0F2uEE5 V2AqHRDcwjlwmobpsCI1 NAJvVLZeqT00Jx9ajXlv Ea5jPCTtBAS9XCMoaUQj X8IgaB7oZwKyYADi HOFwY9CnjSNjPWibB815 WLsvMwS8OPTonqHlH0Tn JXLisMbbMqM7y6L1Cw1O PV56UG26LL38lUFq a1J3fNX1D4TjYPAnrzvw jtswbSL0YJClLSHvcB44 At6kcEnbIw2zRJMjRBA3 JLTqnSDsT5UujA1x HrSvLHYdSEYkP3AdzRBs GKgaS745GMppBgT1CHNj euKuE8DdPLIhaTaaLtW9 y3A9Bh4BVl33RM29 GD44yMNji7Y4oXI0O6Au CSWcrlvlrvyxbPT4BDIn PRHcsJ51Xm6noSytRq1c GUNkJTP9APVlwSVo A3JmpH9pCpWbQYOyZEVv I6AbrXUvFQnlR727MJwy UaV5QDFlwaFvQ7NnTYTp yQfkXrT7w8H6Qq8Z VFkpuva9G7EeKddaaAE+ JF24YKOhXS35hZXtxXEu z5ugsAb7ApCrYFQiFUR8 xRabJFmhg9WvPTQi Y29 (more content not included)... [facility] Consent Formson 01-28-2022 Consent Forms [id number] #[id number] Normal [facility] ED Clinical Summaryon 2021 ED Clinical Summary [facility] - Emergency Department [address] [place], [place] [address] ED Clinical Summary PERSON INFORMATION Name: LIANA KAUFMAN Age: 46 Years Sex: MALE : 1975 MRN: Acct#: Visit Reason: Shortness of breath; SOB Arrival: 01/27/2022 19:55:56 Discharge: 01/28/2022 00:06:00 LOS: 000 04:11 Check In: 01/27/2022 19:55:56 Checkout:01/28/2022 00:06:00 Address: [address] [address] PCP: Jessica Quigley PROVIDER INFORMATION Provider Role Assigned Unassigned Dillon Pop MD ED Provider 01/27/2022 20:10:58 Lisandra Bone RN ED Nurse 01/27/2022 20:17:31 Lisandra Coleman RN ED Nurse 01/27/2022 23:01:23 VITALS INFORMATION Vital Sign Triage Latest Temperature Tympanic Temperature Temporal Artery Pulse Rate 104 bpm 73 bpm O2 Sat 96 % 98 % Respiratory Rate 20 br/min 24 br/min Blood Pressure /91 mmHg /91 mmHg MEDICAL INFORMATION Medications Given: Medication Dose Route albuterol-ipratropiu m (albuterol-ipratropi um 2.5 mg-0.5 mg/3 mL inhalation solution) 3 mL NEB albuterol (albuterol 0.083% inh solution) 2.5 mg NEB Sodium Chloride 0.9% intravenous solution 1,000 mL 1000 mL Initial Volume 500 mL/hr IV Right Wrist methylPREDNISolone (SOLU-Medrol) 125 mg IV Push albuterol (albuterol 0.083% inh solution) 2.5 mg NEB albuterol-ipratropiu m (albuterol-ipratropi um 2.5 mg-0.5 mg/3 mL inhalation solution) 3 mL NEB iohexol (Omnipaque 350.) 350 mg IV Push Allergy Information: penicillin PHYSICIAN DOCUMENTATION DISCHARGE INFORMATION: Discharge Disposition: Home Discharge Location: Home PATIENT EDUCATION INFORMATION Instructions: Hiatal Hernia; Incidental Abnormal Radiological Finding; Hypertension, Adult; How to Take Your Blood Pressure, Hzld-do-Yetg; 10 Things You Can Do to Manage Your COVID-19 Symptoms at Home - [facility] (02/05/2021); Bronchospasm, Adult, Dcya-an-Snsn Follow-Up: With: Address: When: Jessica Quigley [address] [place] [address] Business (1) Within 2 to 4 days Comments: Reviewed discharge care instruction. Continue with therapy as outlined by Dr. Pop. May stop Bactrim. May stop Cipro. Take prednisone 40 mg daily for the next 5 days. Use albuterol every 4-6 hours as needed for wheezing. May take 2 tablet Tylenol 3 times a day as needed for fever aches or pain Take antiviral medicine as prescribed, twice daily for the next 5 days Contact your family doctor or PCP within the recommended time. Return to ER for any worsening symptoms especially any symptom that concerns you. You were found to have an elevated blood pressure reading in the emergency department. It is unclear if your reading today is because that you were seen in the emergency department with increased level of concerns or that your blood pressure is elevated and not adequately under control. You should check your blood pressure routinely, daily. Contact your primary care provider if your blood pressure reading is consistently elevated, above 140/90. DIAGNOSIS: Abnormal chest CT; Acute COVID-19; Acute bronchitis with wheezing; Hiatal hernia; Pneumonia due to COVID-19 virus; Pneumonia due to coronavirus disease 2018 Patient Understands: Yes - Patient/family/careg iver verbalizes understanding of instructions given Comment: Normal [facility] ED Patient Summaryon 022 ED Patient Summary [facility] - Emergency Department [address] [place] [address] PATIENT DISCHARGE INSTRUCTIONS Patient Information Name: LIANA KAUFMAN Age: 46 Years Date of : 1975 Reason For Visit: Shortness of breath; SOB Arrival Time: 01/27/2022 19:55:56 Primary Care Physician: Jessica Quigley Attending Physician: Dillon Pop MD Comment: Visit Diagnosis: Diagnoses This Visit Abnormal chest CT (R93.89) Acute bronchitis with wheezing (J20.9) Acute COVID-19 (U07.1) Hiatal hernia (K44.9) Pneumonia due to coronavirus disease 2019 (J12.82) Pneumonia due to COVID-19 virus (U07.1) Shortness of breath ([id number]) Prescription Information: If you have been given a prescription for narcotics, seek immediate medical attention if you have any difficulty breathing or any sudden status changes such as confusion and sleepiness. If you or anyone you know is experiencing suicidal thoughts, mental health, alcohol and/or drug addiction problems; contact the [facility] 13/02 Crisis Hotline -Text 4HVXG to 373060. If you received any narcotics, sedation, or any other medication that causes drowsiness for the next 24 hours, unless otherwise directed: ? Do not drive a car. ? Do not operate machinery such as power tools, lawn mowers, drills, sewing machines, or stoves ? Avoid alcoholic beverages and drugs for allergies, nerves, or sleep ? Do not make important personal or business decisions or sign any legal documents With: Address: When: Jessica Quigley [facility] [place] [address] Business (1) Within 2 to 4 days Comments: Reviewed discharge care instruction. Continue with therapy as outlined by Dr. Pop. May stop Bactrim. May stop Cipro. Take prednisone 40 mg daily for the next 5 days. Use albuterol every 4-6 hours as needed for wheezing. May take 2 tablet Tylenol 3 times a day as needed for fever aches or pain Take antiviral medicine as prescribed, twice daily for the next 5 days Contact your family doctor or PCP within the recommended time. Return to ER for any worsening symptoms especially any symptom that concerns you. You were found to have an elevated blood pressure reading in the emergency department. It is unclear if your reading today is because that you were seen in the emergency department with increased level of concerns or that your blood pressure is elevated and not adequately under control. You should check your blood pressure routinely, daily. Contact your primary care provider if your blood pressure reading is consistently elevated, above 140/90. Medication Information: The exam and treatment you received today in the [facility] Emergency Department were for an urgent problem and are not intended as complete care. It is important for you to follow up with a doctor, nurse practitioner, or physician?s museum assistant for ongoing care. If your symptoms become worse or you do not improve as expected and you are unable to reach your usual health care provider, you should return to the Emergency Department, we are available 24 hours a day. For those patients who have received Radiology results, the interpretation of your X-ray as given to you by our Emergency Department physician is only a preliminary report. The Radiologist will review your films and if there is a change in the diagnosis you will be notified by phone. Please make sure you have provided a working phone number so we can reach you if necessary. In the event that you had a lab culture while you were a patient in the Emergency Department, you will be notified by phone if there is a need to change your antibiotic. Please make sure you have provided a working phone number so we can reach you if necessary. [facility] Emergency Department has provided you with a complete list of medications post discharge. Please inform your conventional underwriter/provider of your visit and for further instruction on these medications. Any specific questions regarding your chronic medications and dosages should be discussed with your primary care physician(s) and/or pharmacist. New Medications [facility] [address], [address] [place] [address] [phone], [phone] nirmatrelvir-ritonav ir (Paxlovid 150 mg-100 mg oral tablet) 300 Milligram Oral 2 times a day for 5 Days. Take as per package labeling. Refills: 0. predniSONE (predniSONE 20 mg oral tablet) 2 tab(s) Oral every day for 5 Days. Refills: 0. Medications to Continue That Have Not Changed Other Medications albuterol (albuterol 90 mcg/inh inhalation aerosol) 1 puff(s) Inhalation once as needed for wheezing. antihemophilic factor (Kovaltry recombinant intravenous powder for injection) colchicine (colchicine 0.6 mg oral tablet) 0.5 tab(s) Oral 2 times a day. levothyroxine (levothyroxine 175 mcg (0.175 mg) (more content not included)... Normal [facility] SARS-CoV-2 (COVID-19) PCRon 01-28-2022 Employed in healthcare? Unknown Invalid Interpretation Code [facility] Comment on above: Performed By: #### 6 [id number] #### [facility] (DEFAULT) [address] [place] [address] Group care resident? Unknown Invalid Interpretation Code [facility] Comment on above: Performed By: #### 6 [id number] #### [facility] (DEFAULT) [address] [place] [address] In ICU? Unknown Invalid Interpretation Code [facility] Comment on above: Performed By: #### 6 [id number] #### [facility] (DEFAULT) [address] [place] [address] status? Unknown Invalid Interpretation Code [facility] Comment on above: Performed By: #### 6 [id number] #### [facility] (DEFAULT) [address] [place] [address] SARS-CoV-2 (COVID-19) RNA BEA+probe Ql (Unsp spec) Detected Critically abnormal Not Detected [facility] Comment on above: Result Comment: Resu lts Called To LISANDRA COLEMAN RN IN ER By YI Combs And Read Back For Confirmation On 01/27/2022 23:36:55 EDT. Performed by PCR methodology. Performed By: #### 6 [id number] #### [facility] (DEFAULT) [address] [place] [address] SARS-CoV-2 (COVID-19) RNA BEA+probe Ql (Unsp spec) Unknown Invalid Interpretation Code [facility] Comment on above: Performed By: #### 6 [id number] #### [facility] (DEFAULT) [address] [place] [address] Symptomatic as defined by CDC? Unknown Invalid Interpretation Code [facility] Comment on above: Performed By: #### 6 [id number] #### [facility] (DEFAULT) [address] [place] [address] .Auto Diff 1on 01-27-2022 Auto [place] % 10 % Normal 1-12 [facility] Comment on above: Performed By: #### 2 573920, 1513868, 0184389, 2978780142, 6072279951, 79038652, 1233094212, 1507335037, 1277426065 ####[facility] (DEFAULT)[address] [place] [address] 78743 Baso Abs# 0.1 x10 Normal 0.0-0.2 [facility] Comment on above: Performed By: #### 2 496224, 6144557, 9665504, 1099341207, 7252923286, 37426404, 1037918844, 7262024155, 8984120817 ####[facility] (DEFAULT)[address] [place] [address] 34875 Basophils/100 WBC (Bld) 0.8 % Normal 0.2-2.0 [facility] Comment on above: Performed By: #### 2 126033, 0609066, 4032430, 3951134359, 6824338455, 89011668, 0955127498, 8160921979, 1184730337 ####[facility] (DEFAULT)[address] [place] [address] 08516 Eos Abs# 1.2 x10 High 0.0-0.4 [facility] Comment on above: Performed By: #### 2 772747, 3309277, 3126482, 2599567357, 4395656372, 04728862, 4090684172, 1584865063, 6752580394 ####[facility] (DEFAULT)[address] [place] [address] 27907 Eosinophils/100 WBC (Bld) 9.3 % High 0.9-4.0 [facility] Comment on above: Performed By: #### 2 159688, 1889757, 4296702, 7899814663, 7853142648, 23417020, 4394462238, 7507508521, 5433366085 ####[facility] (DEFAULT)[address] [place] [address] 55794 Lymph Abs# 1.6 x10 Normal 1.3-2.9 [facility] Comment on above: Performed By: #### 2 195684, 0895089, 9463239, 5529384762, 3627972787, 12660823, 2729879067, 1631474173, 3038298507 ####[facility] (DEFAULT)[address] [place] [address] Lymphocytes/100 WBC (Bld) 12 % Low 14-48 [facility] Comment on above: Performed By: #### 2 102405, 1090235, 2908563, 0210540051, 9106371947, 83469149, 0853408273, 0106790350, 0222748984 ####[facility] (DEFAULT)[address] [place] [address] [place] Abs# 1.3 x10 High 0.0-0.8 [facility] Comment on above: Performed By: #### 2 045431, 9843757, 5360989, 7004190022, 3438416356, 94225604, 0680388742, 8699715719, 1688512799 ####[facility] (DEFAULT)[address] [place] [address] Neut Abs# 8.9 x10 Normal 1.5-9.2 [facility] Comment on above: Performed By: #### 2 682223, 6209030, 1542342, 4249074332, 2817954123, 10406200, 7417542641, 1646699926, 5015592352 ####[facility] (DEFAULT)[address] [place] [address] Neutrophils/100 WBC (Bld) 68 % Normal 44-88 [facility] Comment on above: Performed By: #### 2 405963, 7146632, 8542912, 3271588163, 0564070967, 33075363, 8998108472, 5408325444, 9592627821 ####[facility] (DEFAULT)[address] [place] [address] BNP.on 01-27-2022 Natriuretic peptide B (Bld) [Mass/Vol] 9.9 pg/mL Normal 0.0-100.0 [facility] Comment on above: Result Comment: BNP results greater than 100 pg/mL are considered abnormal and suggestive of patients with CHF. Higher BNP concentrations measured in the first 72 hours after an acute coronary syndorme are associated with an increased risk of , myocardial infarction, and CHF. Performed By: #### 2 533167, 4528939, 7146844, 2615894668, 1809100667, 98262405, 0330453938, 1882120833, 7234527013 ####[facility] (DEFAULT)[address] [place] [address] 83397 CBC w/ Auto Diffon 2 Erythrocyte distribution width (RBC) [Ratio] 13.4 % Normal 11.5-15.0 [facility] Comment on above: Performed By: #### 2 086003, 1257257, 4147039, 6836022183, 7189680826, 51558174, 5972904149, 0251039866, 2618318682 ####[facility] (DEFAULT)[address] [place] [address] 03928 Hematocrit (Bld) [Volume fraction] 44.7 % Normal 34.8-51.9 [facility] Comment on above: Performed By: #### 2 918312, 1465201, 6655288, 4298604584, 8891667355, 44873126, 4068419957, 0276978130, 0522766847 ####[facility] (DEFAULT)[address] [place] [address] 43809 Hemoglobin (Bld) [Mass/Vol] 15.1 g/dL Normal 11.8-17.7 [facility] Comment on above: Performed By: #### 2 264378, 5092978, 9005794, 0866618866, 6003476754, 25083787, 7755365596, 2020976479, 7120685188 ####[facility] (DEFAULT)[address] [place] [address] 74051 Instr WBC 13.1 x10 Invalid Interpretation Code [facility] Comment on above: Performed By: #### 2 882407, 1016961, 7319488, 3460170797, 2098031258, 18131057, 5462412321, 9480302068, 4717647555 ####[facility] (DEFAULT)[address] [place] [address] 87800 Man Diff? Auto Normal [facility] Comment on above: Performed By: #### 2 848575, 4372189, 5291524, 2192173451, 6929171680, 81041506, 0557180612, 4279438194, 3480395172 ####[facility] (DEFAULT)[address] [place] [address] 43412 MCH (RBC) [Entitic mass] 29 pg Normal 24-34 [facility] Comment on above: Performed By: #### 2 106149, 1084769, 0419218, 3432479109, 8442841426, 61896946, 7009726618, 5028740784, 5936923424 ####[facility] (DEFAULT)[address] [place] [address] 93205 MCHC (RBC) [Mass/Vol] 34 g/dL Normal 26-37 [facility] Comment on above: Performed By: #### 2 723162, 7126610, 0339575, 1144463609, 8844639880, 18288923, 2016089559, 8274707325, 3927343077 ####[facility] (DEFAULT)[address] [place] [address] 24463 MCV (RBC) [Entitic vol] 86 fL Normal 81-100 [facility] Comment on above: Performed By: #### 2 565267, 0095901, 1593582, 0052900763, 1068886477, 46212459, 7531403383, 0682297459, 2681137657 ####[facility] (DEFAULT)[address] [place] [address] 83502 Platelet 241 x10 Normal 138-427 [facility] Comment on above: Performed By: #### 2 504604, 1196103, 3861506, 2752713433, 5732275410, 75169251, 0851974009, 2812843751, 8411143214 ####[facility] (DEFAULT)[address] [place] [address] 90596 Platelet mean volume (Bld) [Entitic vol] 10.3 fL High 6.3-10.2 [facility] Comment on above: Performed By: #### 2 519463, 8249179, 2810030, 3651677538, 7439003061, 20637908, 9028521219, 9023546300, 4292417715 ####[facility] (DEFAULT)[address] [place] [address] RBC 5.17 x10 Normal 3.70-5.30 [facility] Comment on above: Performed By: #### 2 051918, 2531924, 4168447, 8216923033, 7577728161, 73586243, 3046608851, 3580320965, 4431006231 ####[facility] (DEFAULT)[address] [place] [address] WBC 13.1 x10 High 3.5-10.5 [facility] Comment on above: Performed By: #### 2 852740, 6214850, 7319216, 8063514234, 0868739764, 83741067, 9538946279, 7715399799, 5995696571 ####[facility] (DEFAULT)[address] [place] [address] Standardon 01-27-2022 eGFR Non AA >60 Invalid Interpretation Code [facility] Comment on above: Performed By: #### 2 982822, 6482470, 1930560, 6671571588, 0681743440, 33281240, 8329937198, 8090108153, 3554502569 ####[facility] (DEFAULT)[address] [place] [address] eGFR AA >60 Invalid Interpretation Code [facility] Comment on above: Result Comment: Communications Marketing Intern helene Kidney disease could be indicated at eGFRs of less than 60 ml/min/1.73m2. Kidney Failure is indicated at less than 15 ml/min/1.73m2 Performed By: #### 2 551526, 7255658, 2126956, 9257453280, 5300185400, 31695175, 5500081693, 5524385234, 5474190857 ####[facility] (DEFAULT)[address] [place] [address] 65217 Albumin [Mass/Vol] 4.1 g/dL Normal 3.5-5.0 [facility] Comment on above: Performed By: #### 2 311620, 4857481, 7105960, 1423566301, 9772441257, 49314784, 2154035004, 3154769902, 9093432532 ####[facility] (DEFAULT)[address] [place] [address] 79968 Albumin/Globulin [Mass ratio] 1.2 {ratio} Low 1.4-2.6 [facility] Comment on above: Performed By: #### 2 639076, 8419753, 6920532, 5657107946, 9233709519, 07571750, 2584539911, 6396887571, 6811072492 ####[facility] (DEFAULT)[address] [place] [address] 16680 Alk Phos 54 IU/L Normal 32-91 [facility] Comment on above: Performed By: #### 2 334049, 6621088, 9592845, 0277219225, 7937534321, 10195366, 0095197717, 2670350956, 5820157789 ####[facility] (DEFAULT)[address] [place] [address] 29484 ALT [Catalytic activity/Vol] 26.0 U/L Normal 17.0-63.0 [facility] Comment on above: Performed By: #### 2 560115, 1910702, 2992442, 0695494965, 4699095147, 03953345, 2816977372, 7901096807, 0328548745 ####[facility] (DEFAULT)[address] [place] [address] 63303 Anion gap [Moles/Vol] 17.0 mmol/L Normal 5.0-19.0 [facility] Comment on above: Performed By: #### 2 865445, 1108034, 3619800, 6752534884, 0890792550, 91043984, 6776086048, 5853913720, 1053933558 ####[facility] (DEFAULT)[address] [place] [address] 81523 AST [Catalytic activity/Vol] 39 U/L Normal 15-41 [facility] Comment on above: Performed By: #### 2 310473, 8892430, 5945129, 4320510254, 2901000010, 47344482, 2299071648, 3264353877, 1678083743 ####[facility] (DEFAULT)[address] [place] [address] 13274 Bili Total 0.5 mg/dL Normal 0.3-1.2 [facility] Comment on above: Performed By: #### 2 507866, 0054049, 1089231, 5060630812, 0591304910, 75822657, 1824723446, 8072844133, 2879389550 ####[facility] (DEFAULT)[address] [place] [address] 07932 Calcium [Mass/Vol] 8.9 mg/dL Normal 8.9-10.3 [facility] Comment on above: Performed By: #### 2 631570, 8436052, 8829800, 7299629498, 2314897173, 01887929, 9062101005, 4851912579, 1080875774 ####[facility] (DEFAULT)[address] [place] [address] 16095 Chloride [Moles/Vol] 101 mmol/L Normal 101-111 [facility] Comment on above: Performed By: #### 2 500416, 2810347, 9712702, 6439274392, 1702950294, 72313524, 6114012891, 7431444859, 9176644420 ####[facility] (DEFAULT)[address] [place] [address] 34873 CO2 [Moles/Vol] 22 mmol/L Normal 21-32 [facility] Comment on above: Performed By: #### 2 283620, 9780715, 6206527, 9633485852, 0198401316, 46235311, 9176284675, 0206204145, 1287759386 ####[facility] (DEFAULT)[address] [place] [address] 93636 Creatinine [Mass/Vol] 1.19 mg/dL Normal 0.90-1.30 [facility] Comment on above: Performed By: #### 2 831151, 3659230, 5933809, 8730104870, 2177726561, 33861696, 3495095239, 3376569455, 9578732792 ####[facility] (DEFAULT)[address] [place] [address] 60398 Globulin (S) [Mass/Vol] 3.3 g/dL Normal 1.5-4.3 [facility] Comment on above: Performed By: #### 2 412783, 2686720, 4619516, 9978422533, 5124382074, 59741829, 2739831224, 3948296221, 8049174964 ####[facility] (DEFAULT)[address] [place] [address] 08900 Glucose [Mass/Vol] 94.0 mg/dL Normal 74.0-118.0 [facility] Comment on above: Performed By: #### 2 110309, 2658380, 7852687, 1463229335, 6299586863, 15727047, 9272252974, 1557399909, 7362835492 ####[facility] (DEFAULT)[address] [place] [address] 15155 Osmolality 274 mOsm/L Invalid Interpretation Code [facility] Comment on above: Performed By: #### 2 060836, 5611865, 4084242, 6844735598, 6884946133, 31262144, 4105708882, 2113125903, 7869301406 ####[facility] (DEFAULT)[address] [place] [address] 31579 Potassium [Moles/Vol] 3.5 mmol/L Low 3.6-5.1 [facility] Comment on above: Performed By: #### 2 471667, 0665753, 6350421, 7669241176, 3990225240, 14649222, 0565735356, 3732560083, 2488709411 ####[facility] (DEFAULT)[address] [place] [address] 33266 Protein [Mass/Vol] 7.4 g/dL Normal 6.5-8.1 [facility] Comment on above: Performed By: #### 2 794722, 9924073, 5698961, 0244599034, 9570886308, 02974983, 8477692995, 6072634287, 0723371106 ####[facility] (DEFAULT)[address] [place] [address] 29532 Sodium [Moles/Vol] 136.0 mmol/L Normal 136.0-144.0 [facility] Comment on above: Performed By: #### 2 699900, 3086013, 9756747, 2581210089, 5466470005, 71609338, 9405723829, 0554676562, 1256161516 ####[facility] (DEFAULT)[address] [place] [address] 96578 Urea nitrogen [Mass/Vol] 20 mg/dL Normal 8-26 [facility] Comment on above: Performed By: #### 2 863149, 1793692, 6717555, 6080143284, 6572036447, 59469141, 4684450741, 8842699265, 3678234217 ####[facility] (DEFAULT)[address] [place] [address] 53168 Urea nitrogen/Creatinine [Mass ratio] 17.0 mg/mg High 4.6-16.2 [facility] Comment on above: Performed By: #### 2 744170, 9186263, 7637821, 2732327543, 1344833226, 14006367, 3271359705, 1923478687, 5796840335 ####[facility] (DEFAULT)[address] [place] [address] PE Chest w/ Contraston CT PE Chest w/ Contrast EXAMINATION: CT PE Chest w/ Contrast HISTORY: Pulmonary embolism (PE) suspected, high prob COMPARISON: None. TECHNIQUE: Contrast-enhanced CT of the chest was performed utilizing pulmonary embolism protocol. MIP (maximum intensity projection) images or 3D post processing was performed. Dose reduction techniques were achieved by using automated exposure control and/or adjustment of mA and/or kV according to patient size and/or use of iterative reconstruction technique. FINDINGS: VASCULATURE: The study is technically adequate, but partially compromised due to motion particularly within the lung bases. There are no luminal filling defects in the pulmonary arterial system to suggest a pulmonary embolism. Evaluation of the distal branches is not reliable. The aorta and pulmonary arteries are normal in caliber. MEDIASTINUM: The thyroid is unremarkable. Small sliding type hiatal hernia. Mildly enlarged hilar and mediastinal lymph nodes to include a 1.3 cm left hilar lymph node, 1.4 cm right hilar lymph node, 1.2 cm right paratracheal lymph node. No axillary or supraclavicular lymphadenopathy. Heart size and chambers are normal. Trace pericardial effusion is likely physiologic. No right heart strain. LUNGS, AIRWAYS, AND PLEURAL SURFACES: No pleural effusion, focal consolidation, or pneumothorax. Right pleural fat deposition. There are scattered groundglass opacities in the right greater than left upper lobes. There are smaller groundglass and nodular opacities in the right lower lobe. Diffuse bronchial wall thickening is present. MUSCULOSKELETAL AND CHEST WALL: No acute or suspicious osseous lesions. UPPER ABDOMEN: Limited evaluation of the upper abdomen shows no acute findings. The liver is low in attenuation, consistent with steatosis. There is a right retroperitoneal soft tissue mass with central hypoattenuation measuring up to 2 cm (axial image 7). This is in close proximity to the right adrenal gland, but not definitively in direct continuity with it. IMPRESSION: 1. No evident pulmonary embolism, though evaluation is partially compromised secondary to motion. 2. Scattered groundglass and nodular opacities, most notable in the right upper lobe, are suggestive of developing multifocal pneumonia, possibly viral in origin. Follow-up imaging in 3 months is recommended to document resolution. 3. Bronchial wall thickening suggesting a concomitant reactive or infectious airways process such as bronchitis. 4. Mediastinal and hilar lymphadenopathy is likely reactive. Attention on follow-up in 3 months is recommended. 5. Right retroperitoneal soft tissue mass, measuring 2 cm, with central hypoattenuation may represent a necrotic lymph node. This is in close proximity but not in definitive communication with the right adrenal gland. CT abdomen/pelvis is recommended. 6. Hepatic steatosis. I spoke with Dr. Pop of the Emergency Department at 11:05 p.m. via telephone regarding the above findings and recommendations. This study was also submitted to the incidental findings folder for physician notification. Final Dictated by: Moshe Martinez MD Dictated DT/TM: 01/27/22 10:27 Signed (Electronic Signature): Moshe Martinez MD 01/27/22 11:07 p Technologist: Maryan MAZA Normal [facility] D-Dimeron 01-27-2022 D-Dimer 0.89 mg/L FEU High 0.19-0.50 [facility] Comment on above: Result Comment: Resu lts Called To LISANDRA COLEMAN RN IN ER By YI Combs And Read Back For Confirmation On 01/27/2022 21:16:03 EDT. The INNOVANCE D-Dimer assay (Cutoff Value of > 0.50) is intended for the use as an aid in the diagnosis of venous thromboembolism (VTE) deep vein thrombosis (DVT) or pulmonary embolism (PE). The measurement of D-Dimer should not be used as an aid in the diagnosis of VTE in patients with: ? Therapeutic dose anticoagulant therapy for >24 hours ? Fibrinolytic therapy within previous 7 days ? Trauma or surgery within previous 4 weeks ? Disseminated malignancies ? Aortic aneurysm ? Sepsis, sever infections, pneumonia, severe skin infections ? Liver cirrhosis ? Performed By: #### 2 [id number], [id number], [id number], [id number], [id number], [id number], [id number], [id number], [id number] ####[facility] (DEFAULT)[address] [place] [address] ED Note - Physicianon 2021 ED Note - Physician Patient: LIANA KAUFMAN Age: 46 years Sex: MALE : 1975 Associated Diagnoses: Pneumonia due to COVID-19 virus; Hiatal hernia; Acute COVID-19; Acute bronchitis with wheezing; Abnormal chest CT Author: Dillon Pop MD Basic Information Time seen: Date & time 01/27/2022 20:11:00. History source: Patient. Arrival mode: Private vehicle, walking. History limitation: None. History of Present Illness The onset was 5 days ago. Additional history: was on bactrim last week for foot pos inf. didnt get better. got colchine. got better monday with gerd asp..inc sob. cough. fits of cough near syncope. 46-year-old male presented to ER for evaluation of shortness of breath, wheezing and difficulty with breathing. He stated that patient reported that he had no prior history of asthma. He stated that he does have gastric reflux. He stated that symptoms began a week ago when he started having some foot problem, toe pain. Thought it was an infectious process. Was placed on Bactrim. No improvement. Went and saw tmr teacher. Was given colchicine. Reported improvement. After several days of Bactrim, has stopped. He stated that 5 days ago, he had noted in middle of night , woke up gasping, shortness of breath with symptoms of reflux, suspecting that GI content have reflux. Since then, noted that he has been short of breath, wheezing. He describes symptoms of dyspnea on exertion. He was described fits of cough, with near syncope from the cough. He stated that he has been using his inhaler, albuterol. He stated that he had this leftover from previous problem of bronchitis. He stated that he gets some relief, but only a few hours. Patient reported that he is running low. He stated that he had never been diagnosed with asthma. He denies tobacco use. He stated that in the past, he had noted probable reflux when he had gained weight into the 230 range. He stated that after he lost weight, it seemed to have gone away and improved. Recently, he noted weight gain again, into the 235 range. Denies any chest pain. No leg swelling or edema. No prior history of PE. He stated that since this past Monday, he started taking Cipro. He thought it was from an infectious process.. Stated that he sometimes With [facility]. Stated that he had several COVID-vaccine. Review of Systems Constitutional symptoms: No fever, no chills. Skin symptoms: Negative except as documented in HPI. Eye symptoms: Vision unchanged. ENMT symptoms: Negative except as documented in HPI. Respiratory symptoms: Shortness of breath, cough, wheezing. Cardiovascular symptoms: No chest pain, no peripheral edema. Gastrointestinal symptoms: No abdominal pain, no vomiting. Genitourinary symptoms: No dysuria, Endocrine symptoms: Negative except as documented in HPI. Hematologic/Lymphati c symptoms: Negative except as documented in HPI. Allergy/immunologic symptoms: Seasonal allergies, bad allergies . Health Status Allergies: No active allergies have been recorded.. Past Medical/ Family/ Social History Medical history: No active or resolved past medical history items have been selected or recorded., Reviewed as documented in chart. Surgical history: No active procedure history items have been selected or recorded., Reviewed as documented in chart. Family history: No family history items have been selected or recorded., Reviewed as documented in chart. Social history: Social & Psychosocial Habits No Data Available , Reviewed as documented in chart. Problem list: No qualifying data available , per nurse's notes. Physical Examination Vital Signs Vital Signs 01/27/2022 21:08 EDT Peripheral Pulse Rate 104 bpm HI Peripheral Pulse Rate 110 bpm HI Respiratory Rate 20 br/min Respiratory Rate 20 br/min SpO2 95 % Oxygen Therapy Room air Oxygen Therapy Room air 01/27/2022 21:06 EDT Peripheral Pulse Rate 111 bpm HI Peripheral Pulse Rate 116 bpm HI Respiratory Rate 20 br/min Respiratory Rate 18 br/min SpO2 95 % Oxygen Therapy Room air 01/27/2022 21:00 EDT Peripheral Pulse Rate 102 bpm HI Heart Rate Monitored 101 bpm HI Respiratory Rate 18 br/min SpO2 95 % Oxygen Therapy Room air 01/27/2022 20:30 EDT Peripheral Pulse Rate 106 bpm HI Heart Rate Monitored 106 bpm HI Respiratory Rate 18 br/min SpO2 97 % Oxygen Therapy Room air 01/27/2022 20:06 EDT Temperature Oral 36.7 DegC Peripheral Pulse Rate 104 bpm HI Respiratory Rate 20 br/min Systolic Blood Pressure 157 mmHg HI Diastolic Blood Pressure 91 mmHg HI SpO2 96 % Oxygen Therapy Room air . General: On examination, age-appropriate 46-year-old male, awake and alert; answering questions appropriate, he appears with some symptoms of dyspnea on exertion, audible wheezing. Skin: Warm, dry, intact, normal for ethnicity. Head: Normocephalic, atraumatic. Neck: Supple, trachea midline. Eye: Extraocular movements are intact, normal conjunctiva. Ears, nose, belkys (more content not included)... Normal [facility] ED Note-Nursingon 01-27-2022 ED Note-Nursing Pt presents to ED room 3 ambulatory, denies wheel chair, from private vehicle, c/o SOB. Pt states this has been going on since Monday but worse today. Pt reports this is a chronic issue where he gets heartburn, acid reflux, and then it turns to SOB. Pt reports he has an MDI inhaler that he was prescribed within the last year to use when this occurs. Pt A&O x4. Pt not in any acute distress at this time. Pt states it is difficult to take a deep breath. Normal [facility] Extra Greyon 01-27-2022 Tube Collected Yes Invalid Interpretation Code [facility] Comment on above: Performed By: #### 2 [id number], [id number], [id number], [id number], [id number], [id number], [id number], [id number], [id number] ####[facility] (DEFAULT)[address] [place] [address] 41169 Magnesiumon 01-27-2022 Magnesium [Mass/Vol] 1.75 mg/dL Low 1.80-2.50 [facility] Comment on above: Performed By: #### 2 [id number], [id number], [id number], [id number], [id number], [id number], [id number], [id number], [id number] ####[facility] (DEFAULT)[address] [place] [address] 28569 TnI HSon 01-27-2022 Troponin I High Sensitivity 5 pg/mL Normal <=20 [facility] Comment on above: Result Comment: Male Baseline Delta 1Hr (Note pg/mL=ng/L) <20pg/mL 50-60% >20pg/mL 20% Female Baseline Delta 1Hr <15pg/mL 50-60% >15pg/mL 20% Other Baseline Delta 1Hr <18ng/mL 50-60% >18ng/mL 20% ([employer] Guidelines February 2018) Performed By: #### 2 [id number], [id number], [id number], [id number], [id number], [id number], [id number], [id number], [id number] ####[facility] (DEFAULT)[address] [place] [address] 80061 XR Chest 2 Viewson 2 XR Chest 2 Views EXAM: XR CHEST 2 VIEWS HISTORY: Shortness of Breath COMPARISON: None. TECHNIQUE: PA and lateral chest were done. FINDINGS: Trachea, mediastinum and heart size are unremarkable. Mild bronchial wall thickening is noted off the hilar regions right side greater than left. No infiltrate or nodule or effusion or pneumothorax is noted. Diaphragm and bony elements are intact. IMPRESSION: 1. Mild bilateral perihilar bronchitis. 2. No obvious infiltrate or effusion noted. Final Dictated by: Josef Adkins Dictated DT/TM: 01/27/22 9:30 Signed (Electronic Signature): Josef Adkins 01/27/22 9:33 pm Technologist: Megan BRICENO [facility] Coding Summaryon 01-20-2022 Coding Summary HTMLBase 64 FafacrheDYq8pJv+PGhl YWQ+GM6AUMSoJ53keQVw fR5DW1iXBL8NBKREVNXL JL2GLZ0wqAK2JXhpT1Xs biAv RyfekSGlZK77XNn3PFN0 hTviVYlgoY3etBHnE9p2 XzXoIR65lQ20ZQqeJQQl RlV2IvPcainsgJWc G0cyBpAdhPIbKbg+PHRh YmxlIHdpZHRoPScxMDAl MjKjfIrbEQ0xKp9gWDRp LWNvbGxhcHNlOiBj n7ceTISkJJruAY1nhEeb D9DijAO5KCCns9x5Jk02 dHI+IXArTWM7bDbeZYji w614NoAym0wgCXB5 xGKkXHyuPTO0U77sn0Q8 NGQoKQZlMDB4iOY4sU6y kFvkrqngB9OyfITqHtB5 BDM4qIMomG4qtPoa zvrzxG6pSgy+R76VUN9M RTYXHB6FFoe2O1HfAvzu dHI+CX31OBSvGP33xHEy zOJea2zsvRa4LwTa IWSwEZG0zCgiHVmzj2Iq TIPdW13cqJTmi2P5OXEd bVdueAHmLcLsyMD8yG8l LMtbbyeud9cyhpdh Nzaab8zede60tK94T77d TYeiAHVgDUB0GPVzDAOt cKfhss2rzA2pPf3+IDxj s6wiy0mvcWj1AkNg TICkzxEkcKmuIRT5x8Ff Sf66F4HcfRbvf6PlXfv0 ov58uMYha9Z1uUG3DGtk COIwoC2vXKkrLuF6 AABwUcYtjU08wDStDMcv Hb3uoBcplEdfTH1bOHAj oirhCNTlyH5jRUOgpZGm rOpzUV6pRMJivbta s325VwUsUXW3UJAnhCZs Y1AtzO3uZcPyWVReNGEv G7WvbVBsLHupX716SDes GsL4YQYfrbYhI7Ot LAXcaTueWeI1y4N5Ub2O e5IuysxjVDT2NXzdQFO9 IpKdEsPdItS9M8WhUwp5 VLWlfNmtQY0oH8Jo VUXkebladhejcFC7WMDt ZRGxoV18lXYaEIbuQp8k z7P3f597PHSjBIAeyP05 Ra4xvJnsKOKijAIC lR1rjcgum9tesgatUsCn OLGtBEc5WGf6CQGuhUvr QeLdSDE4SxS5JBL6nNAg yB6tcNgvlsjmuC5y Oyc+F59jgI5oPTV9JJG7 ofjsZUHmkcFvCF68SX42 I6QgDxwihGVyjFC+PGRp kuNioWsvDW5vOvYq z4psi6AgGXwuE4RoKHRl GQbtOgu0AXEyPHJ0iPJ3 fS1wPVRfGIigq4G8cPZ9 B4EbdpTqiq4ut2wl NONbRXlzT10mmWHrs3E1 SJRyoSL9YVCudMmzJcQb lU76Oqa+UIAcbYuxi9Pi Uqycx8dmc0zirHs1 IjMwJSIgdmFsaWduPSJ0 x9FvDc89U06uIQjiHXCh JWBnYSKiQNBthEetut9e oI3hTv3+PGNvbCB3 eDF6oG2uFNKxBhA2WOlg N104IzFvkTMzGjszm7dc g3xblPu4JySqYFThqgQb xWgyOLO6t1DlGt70 Y04lEVyrYAHpGRCoOCYy EQZqtQhyiw3tcC1kLa7+ QD0ao0ueon97oJ55dDP+ VCJoLJM1kNtqOOxb XIXxmJ4vPFbcAaN0KXTv TuPbsT98mBUdTQvbOu5s bZckrBeaAZ5iUYKsorui s308BcJdf8yoYXMp zVXuGZsoITY7C03kp4X5 MIJaWANaKGM0uIX4cR3x bGlnbjogbGVmdDsgdmVy kApfRJfoMDukW770 IHRvcDsnPlBhdGllbnQg XaHlECx2H9PmJvh3WUUv fOtiBE4xbHRgSKecSd5k vUljzWhcZH7yFSNo jrqiv780IlRai1poTREq rRGzEIizYSP0C64hw4W1 DYTjOYNnKDO3lON2bY4d bGlnbjogbGVmdDsg hfIyfVzzYMdbUSgfH706 IHRvcDsnPkJpcnRoIERh fXF9QQ81RS02pDLxi7R6 cEX3L0UrICIzgwxj iuqrgGH7AMZfARKdoS53 Yr5gnIacLi4tIELhGJD0 XTUtuVFjT7JxlJ8aUyDh SDGuGWSdI8NwkYBs LGowO035MJkmOhG5WQQz soFvC7XpOIXawDaoQgS4 z8F6Im6ZS3N9QO52NW65 hJKli2L1tVV3M6Ko UGHmkdzuqmkwzQP9GLQs ZECzaE19Go0haFakHy4g XFPaUDE5ETPdeAMzR8Wu lK8pVbEtBJTwLWMg O4HxlKXgIOxjP608YNzg UuT7BNHutcCwE7PtLTVs fCdnYeB5r0V8Oi6VTVa6 UW35UL72bXJsj8Z0 gXK8M7EsFKTuvpvwxdlz lGH7ECEoUGPgdU89Rr2u tDysOg1dCFSdOJU3MBFx nRLmP8TheN1wWsNr RQOiKADrP3MkhSOmKYrn C963CMerYeO3EEWgalNb J2LzTRXgzMwwQkH0y8L7 Cm7GFJUlUY44QXC8 tPR3CW51LF90D7AcMmhw dGFibGU+PHRhYmxlIHdp ZHRoPScxMDAlJyBzdHls MT1yZh1gQLEqHSVy gXhwuJAeFbDjj3alHDBr IXzkKC2npRorX6TmbVR7 ZHYja6d6Vz47W61eX9Wp dXA+LGCyuJV2zSG5 eU3xMbFwVxI2BHblO960 TrVfcDGfYsrax3igz9yy wIz3OkG4AMNopkToyCqi WFK1w3BlRu93N82b IHdpZHRoPSIxNSUiIHZh dAbvti4iuT6nHs6+PGNv vES5mUU6nQ7oOjKiUwV4 HYrfA856BlVpxSHr Kafkp6kvr1lsiAv9OjIp RDPjvrNvmNkzPMB8e6Oj Tc85B0TclSstp8IdKil8 fw11cXSdh8B3rAE9 Z2KjXDQapupyeLXedRci ZB4gKMKlzhnsCOAcoN3y RLEkN1e0DrIhQaL4CDuu U8IbgzJ5KSTxtJHc PEakYSO4S19mi0D2NBSs XFNpCST8cBZ1wW4xbBof bjogbGVmdDsgdmVydGlj CHzgICyiG729UQZd cAyiWCYvhY7qAQThjOUo nVfhXS1lVJMwrtglYe4A GRwAW3KpVP6IA6lKPDfd Ai4BPFPGAP56UA29 jNObr3C2jMP4K2WmTCEm qcltdmtjxKT9YKQrGTWy fR75tGTkZGxuLu1ku8L9 b324GGRnETKknM83 Mj7xiEnqSGFkuQOEgL2a jquly7bebdirEqYdVDMj YQf5YEm9NWExvUhqOrSg XOO1IgR6FKF4iRXp sC2xuFoekpnxuZ3tKiu+ VRJnSOJoXFs5OKfauMP+ OJVnZUN8nBbaMCqiCFQu qN3rVRQqQ2n8NdUs NgG5RLyuF0IaRWNnqish Rf49lQ5kGcKjVnK3BEwi D9AijdL7JBOydUQwNFtl LNV9Z04od3E7LGBu HHUaIRT9uIP6yJ5pbUpl bjogbGVmdDsgdmVydGlj PWelSDtpS240LRXdpRsy QwW8HDahRCHdQA96 AF03rFAmu5R2tUF9V3Ib MBDdnbxmayivfXR6BYLm QBPzsT51bXLuMNdjIp3z j6B5s510ZZPxOXUj nA11Wc9tcKasFEOceYKH sH0mqrpsi7fapfngMvMi KBQbBJa4GCj4NQHueKnx NlEoCJW1SrJ0RHN4 rWIouJ2hxOgcpmovuH0g Oyc+TUFMRTwvdGQ+PHRk TWX6dMwrJJeiOKTmcT6j RKYsE6i1AmWfRrE7 ACpcU5LbFGXztoceXs37 eI8uUrRtWbX6EKbmH6Gm fqT5DVEdtZToHAxkZEQ4 K13gl7F1ZIHlMFGu BTN7aNC6bB7yvOcjnucd bGVmdDsgdmVydGljYWwt MJknM096RREjoBqdGj3J OB92XO88A5HbCqzv dGFibGU+PHRhYmxlIHdp ZHRoPScxMDAlJyBzdHls HH3bIm5tYLCzSCXxkKhf iOPdEzJnz2nqAYVq LWumCG6sjNneE7UhdJU7 QSIvc5s7Vm90Q86nP7Ps dXA+UQMgdKQ1qIM8iI0e XmUrUgM8RBrcQ191 SbHuxUHnInkpz7yvy0mt aUf3WqLyNWIfutAncMii UWE5l2IsUg24R80xJRdf ZHRoPSIyMCUiIHZh xAhbtr2vtC6aWx7+PGNv zRH3aGJ9jV6dJbThWiL6 XXtpX171VtBvmAEoErli T48eL4HsxNF+PHRy Njq6UXQaeXcwTE3grIGh GNkzCk6hGDB5MhWsZxZo WVjfY9OoLEWoyyzfpraf tZA4STRfLUWsjH03 Nc6smNzrYd7wLFIsZRS1 GTRdxQIoJ7AzkM5pPxSh NUHjFIPgK1DsoUZdRZak E974RQipHeD7GFOl wdAhR6ToQDCvuJxdCcF1 z4D7Ff4OmChhxEFsTM4v FfHyUDm2D8SsYsn2ITKt rMfpNS4wzJTgCSsx Ey6eoDgpbPgxXP9iBMNx gbueq488CeMsn3tqAKMp pCYsTJakIHE0A84pu5Y9 SRCcGEPoYWD7aTX9 sW0boQfzxxeltPRirCvi dfTgpCwzRJjiQXrqY805 BITmyTjsRoEPLsn2B2Uy Run7EJUpjPlvIR2h cVNiYBklYx8ibMntoOrl HW8dRTCtlmrjx259ArCm h4pgARNpoLVnSQzoQAE3 W97gy8J6LVNiQSRk ILG5vRY0yV8lfPlsxwzl bGVmdDsgdmVydGljYWwt OEfmC366KPPwcOpuWc0F Mib2L0QjZob6SSOh wCzqFW5qkIUlNGxlOq6x hHekiGvhWE4xLEUefvss k801NhDqt5qzKHHfcKFs VOlzTHU2X79bh1V8 XONzZEHfLHZ1fVM4gS9p bGlnbjogbGVmdDsgdmVy aQbgQRgaVNhtM947EREl cDsnPlBheWVyOjwv dGQ+DM36xw62L0DjNovf Hxl4PSScRCT6nNB9gL0i PYHcHUugx8F5vTT9E9Uh xwBhzg6mb7vxYSPp ZTo (more content not included)... [facility] Provider Orderson 01-19-2022 Provider Orders [id number] #[id number] [facility] .Auto Diff 101-18-2022 Auto [place] % 13 % High -12 [facility] Comment on above: Performed By: #### 2 [id number], [id number], 7052854, [id number], [id number] ####[facility] (DEFAULT)[address] [place] [address] Baso Abs# 0.0 x10 Normal 0.0-0.2 [facility] Comment on above: Performed By: #### 2 134444, [id number], 5273599, [id number], [id number] ####[facility] (DEFAULT)[address] [place] [address] Basophils/100 WBC (Bld) 0.4 % Normal 0.2-2.0 [facility] Comment on above: Performed By: #### 2 255448, [id number], 7158222, [id number], [id number] ####[facility] (DEFAULT)[address] [place] [address] 70812 Eos Abs# 0.3 x10 Normal 0.0-0.4 [facility] Comment on above: Performed By: #### 2 860179, [id number], 1799143, 12362799, [id number] ####[facility] (DEFAULT)[address] [place] [address] 34748 Eosinophils/100 WBC (Bld) 3.4 % Normal 0.9-4.0 [facility] Comment on above: Performed By: #### 2 183257, [id number], 2520744, [id number], [id number] ####[facility] (DEFAULT)[address] [place] [address] 72963 Lymph Abs# 1.8 x10 Normal 1.3-2.9 [facility] Comment on above: Performed By: #### 2 608018, [id number], 6407482, 29168890, 6803701 ####[facility] (DEFAULT)[address] [place] [address] 54911 Lymphocytes/100 WBC (Bld) 22 % Normal 14-48 [facility] Comment on above: Performed By: #### 2 690544, [id number], 4953417, 74670870, [id number] ####[facility] (DEFAULT)[address] [place] [address] 68105 [place] Abs# 1.1 x10 High 0.0-0.8 [facility] Comment on above: Performed By: #### 2 106085, [id number], 9166726, 69509354, [id number] ####[facility] (DEFAULT)[address] [place] [address] 51750 Neut Abs# 5.0 x10 Normal 1.5-9.2 [facility] Comment on above: Performed By: #### 2 416349, [id number], 4282015, 75590714, [id number] ####[facility] (DEFAULT)[address] [place] [address] 28497 Neutrophils/100 WBC (Bld) 60 % Normal 44-88 [facility] Comment on above: Performed By: #### 2 042849, [id number], 0457115, 40015641, [id number] ####[facility] (DEFAULT)[address] [place] [address] 87477 [facility] Standardon 01-18-2022 eGFR Non AA 60 mL/min/1.73m2 Invalid Interpretation Code [facility] Comment on above: Performed By: #### 2 598946, [id number], 8209177, [id number], [id number] ####[facility] (DEFAULT)[address] [place] [address] eGFR AA >60 Invalid Interpretation Code [facility] Comment on above: Result Comment: Communications Marketing Intern hleene Kidney disease could be indicated at eGFRs of less than 60 ml/min/1.73m2. Kidney Failure is indicated at less than 15 ml/min/1.73m2 Performed By: #### 2 110897, [id number], 5118895, [id number], [id number] ####[facility] (DEFAULT)[address] [place] [address] 98894 Anion gap [Moles/Vol] 11.0 mmol/L Normal 5.0-19.0 [facility] Comment on above: Performed By: #### 2 876087, [id number], 5223809, 84336719, 4578548 ####[facility] (DEFAULT)[address] [place] [address] 08582 Calcium [Mass/Vol] 8.7 mg/dL Low 8.9-10.3 [facility] Comment on above: Performed By: #### 2 304929, [id number], 0441914, 58397140, 9773735 ####[facility] (DEFAULT)[address] [place] [address] 45597 Chloride [Moles/Vol] 102 mmol/L Normal 101-111 [facility] Comment on above: Performed By: #### 2 418138, [id number], 6366854, 99211414, [id number] ####[facility] (DEFAULT)[address] [place] [address] 98383 CO2 [Moles/Vol] 28 mmol/L Normal 21-32 [facility] Comment on above: Performed By: #### 2 898109, [id number], 0848787, 49714685, 9880775 ####[facility] (DEFAULT)[address] [place] [address] 36851 Creatinine [Mass/Vol] 1.30 mg/dL Normal 0.90-1.30 [facility] Comment on above: Performed By: #### 2 560175, [id number], 7038916, 31659635, 5103305 ####[facility] (DEFAULT)[address] [place] [address] 03614 Glucose [Mass/Vol] 132.0 mg/dL High 74.0-118.0 [facility] Comment on above: Performed By: #### 2 012277, [id number], 8051685, 82827560, 1669789 ####[facility] (DEFAULT)[address] [place] [address] 28513 Osmolality 280 mOsm/L Invalid Interpretation Code [facility] Comment on above: Performed By: #### 2 653166, [id number], 8159369, [id number], 8231505 ####[facility] (DEFAULT)[address] [place] [address] 32435 Potassium [Moles/Vol] 3.4 mmol/L Low 3.6-5.1 [facility] Comment on above: Performed By: #### 2 929517, [id number], 4126151, 69299674, [id number] ####[facility] (DEFAULT)[address] [place] [address] 41152 Sodium [Moles/Vol] 138.0 mmol/L Normal 136.0-144.0 [facility] Comment on above: Performed By: #### 2 598640, [id number], 7662455, [id number], 7885738 ####[facility] (DEFAULT)[address] [place] [address] 15331 Urea nitrogen [Mass/Vol] 19 mg/dL Normal 8-26 [facility] Comment on above: Performed By: #### 2 869230, [id number], 5308728, [id number], 7613550 ####[facility] (DEFAULT)[address] [place] [address] Urea nitrogen/Creatinine [Mass ratio] 15.0 mg/mg Normal 4.6-16.2 [facility] Comment on above: Performed By: #### 2 [id number], [id number], 8182432, [id number], 6836564 ####[facility] (DEFAULT)[address] [place] [address] CBC w/ Auto Diffon 2 Erythrocyte distribution width (RBC) [Ratio] 13.1 % Normal 11.5-15.0 [facility] Comment on above: Performed By: #### 2 650714, [id number], 6388037, [id number], 1328612 ####[facility] (DEFAULT)[address] [place] [address] Hematocrit (Bld) [Volume fraction] 42.5 % Normal 34.8-51.9 [facility] Comment on above: Performed By: #### 2 686660, [id number], 3726746, 47932050, 7262520 ####[facility] (DEFAULT)[address] [place] [address] Hemoglobin (Bld) [Mass/Vol] 14.3 g/dL Normal 11.8-17.7 [facility] Comment on above: Performed By: #### 2 445709, [id number], 9503950, 01626229, 3300179 ####[facility] (DEFAULT)[address] [place] [address] Instr WBC 8.2 x10 Invalid Interpretation Code [facility] Comment on above: Performed By: #### 2 551187, [id number], 3948537, [id number], 3846829 ####[facility] (DEFAULT)[address] [place] [address] Man Diff? Auto Normal [facility] Comment on above: Performed By: #### 2 650141, [id number], 1369535, 85250038, 9050872 ####[facility] (DEFAULT)[address] [place] [address] 53385 MCH (RBC) [Entitic mass] 29 pg Normal 24-34 [facility] Comment on above: Performed By: #### 2 816482, [id number], 7445058, 63123918, 4118624 ####[facility] (DEFAULT)[address] [place] [address] 55821 MCHC (RBC) [Mass/Vol] 34 g/dL Normal 26-37 [facility] Comment on above: Performed By: #### 2 794192, [id number], 9098221, 80459417, 8423043 ####[facility] (DEFAULT)[address] [place] [address] 15262 MCV (RBC) [Entitic vol] 87 fL Normal 81-100 [facility] Comment on above: Performed By: #### 2 810446, [id number], 7388028, 85384499, 3836984 ####[facility] (DEFAULT)[address] [place] [address] 11247 Platelet 198 x10 Normal 138-427 [facility] Comment on above: Performed By: #### 2 388159, [id number], 6217680, 23671351, 0736993 ####[facility] (DEFAULT)[address] [place] [address] 63464 Platelet mean volume (Bld) [Entitic vol] 10.0 fL Normal 6.3-10.2 [facility] Comment on above: Performed By: #### 2 547892, [id number], [id number], [id number], [id number] ####[facility] (DEFAULT)[address] [place] [address] 11565 RBC 4.87 x10 Normal 3.70-5.30 [facility] Comment on above: Performed By: #### 2 [id number], [id number], [id number], [id number] ####[facility] (DEFAULT)[address] [place] [address] 35157 WBC 8.2 x10 Normal 3.5-10.5 [facility] Comment on above: Performed By: #### 2 [id number], [id number], [id number] ####[facility] (DEFAULT)[address] [place] [address] Sed Rateon 01-18-2022 Sed Rate 10 mm/hr Normal 0-15 [facility] Comment on above: Performed By: #### 2 [id number], [id number], [id number], [id number] ####[facility] (DEFAULT)[address] [place] [address] Uric Acidon 01-18-2022 Urate [Mass/Vol] 8.0 mg/dL Normal 4.8-8.7 [facility] Comment on above: Performed By: #### 2 [id number], [id number], [id number] ####[facility] (DEFAULT)[address] [place] [address] Vital Signs Date Time Vital Sign Value Performing Clinician Faci lity 11-12-2024 16:31-0400 Body height 177.8 cm Oseas Whittaker MD Work Phone: [facility] 11-12-2024 16:31-0400 Body mass index (BMI) [Ratio] 34.54 kg/m2 Oseas Whittaker MD Work Phone: [facility] 11-12-2024 16:31-0400 Body weight 109.2 kg Oseas Whittaker MD Work Phone: [facility] 11-12-2024 16:31-0400 Diastolic blood pressure 81 mm[Hg] Oseas Whittaker MD Work Phone: [facility] 11-12-2024 16:31-0400 Heart rate 89 /min Oseas Whittaker MD Work Phone: [facility] 11-12-2024 16:31-0400 Systolic blood pressure 119 mm[Hg] Oseas Whittaker MD Work Phone: [facility] 09-19-2023 16:35-0500 Body height 180.3 cm Oseas Whittaker MD Work Phone: [facility] 09-19-2023 16:35-0500 Body mass index (BMI) [Ratio] 33.05 kg/m2 Oseas Whittaker MD Work Phone: [facility] [employer] [facility] 09-19-2023 16:35-0500 Body weight 107.5 kg Oseas Whittaker MD Work Phone: [facility] 09-19-2023 16:35-0500 Diastolic blood pressure 80 mm[Hg] Oseas Whittaker MD Work Phone: [facility] 09-19-2023 16:35-0500 Heart rate 79 /min Oseas Whittaker MD Work Phone: [facility] 09-19-2023 16:35-0500 Systolic blood pressure 131 mm[Hg] Oseas Whittaker MD Work Phone: [facility] Encounters Encounter Date Encounter Type Care Provider Facility Start: 11-12-2024 End: 11-12-2024 Office outpatient visit 25 minutes Oseas Whittaker MD Work Phone: [facility] [place] Comment on above: Hemophilia A (CMS-HC C) (Primary Dx); Vitamin D deficiency Start: 11-12-2024 End: 11-12-2024 ambulatory [facility] Start: 09-19-2023 End: 09-19-2023 Office outpatient visit 40 minutes Oseas Whittaker MD Work Phone: [facility] [place] Comment on above: Hemophilia A (CMS-HC C) (Primary Dx) Start: 11-20-2022 Encounter for genera l adult medical examination without abnormal findings JESSICA QUIGLEY [facility] Start: 11-17-2022 End: 11-18-2022 ambulatory JESSICA QUIGLEY Facility:[facility] Start: 11-17-2022 End: 11-18-2022 Encounter for general adult medical examination without abnormal findings JESSICA QUIGLEY Facility:[facility] Start: 02-14-[address] DELIA Garcia y:H1 Procedures Date Procedure Procedure Detail Performing Clinician Start: 11-12-2024 Follow-up visit Follow-up OSEAS WHITTAKER Start: 09-19-2023 Adult depression screening assessment Oseas Whittaker MD Work Phone: Plan of Treatment Date Care Activity Detail Author Start: 02-15-2032 DTaP,Tdap and Td Vaccines (2 - Td or Tdap) DTaP,Tdap and Td Vaccines (2 - Td or Tdap) [facility] Start: 11-18-2025 End: 11-18-2025 Patient encounter procedure 11/18/2025 4:00 PM EDT Office Visit [facility] [place] [address] [facility] [address] [place] [phone] Oseas Whittaker MD [address] [facility] [address] [place] [address] [facility] [place] Start: 11-12-2025 Adult BMI Screening Adult BMI Screen ing [facility] Start: 11-12-2025 Tobacco Screening Tobacco Screening [facility] Start: 03-24-2025 Influenza vaccination Influenza Vacc ine [facility] Start: 09-19-2024 Adult BMI Screening Adult BMI Screen ing [facility] Start: 09-19-2024 Depression Screening Depression Scre ening [facility] Start: 09-19-2024 Tobacco Screening Tobacco Screening [facility] Start: 09-17-2024 End: 09-17-2024 Patient encounter procedure 09/17/2024 4:00 PM EST Office Visit [facility] [place] [address] [place] [phone] Oseas Whittaker MD [address] [place] [address] [address] [place] [address] [facility] [place] Start: 03-24-2024 COVID-19 Vaccine ( season) COVID-19 Vaccine ( season) [facility] Start: 03-24-2023 COVID-19 Vaccine ( season) COVID-19 Vaccine ( season) [facility] [employer] Start: 03-24-2023 Influenza vaccination Influenza Vacc ine [facility] [employer] Start: 10-02-1995 Adult BMI Follow Up Plan Adult BMI Follow Up Plan [facility] Coagulation factor V III inhibitor [Units/volume] in Platelet poor plasma by Coagulation assay Factor 8 Inhibitor Lab Routine Hemophilia A ([facility] 09/19/2023 4:35 PM EST [facility] [employer] [facility] End: 09-19-2024 Factor 8 Inhibitor Factor 8 Inhibitor Lab Routine Hemophilia A ([facility]) 1 Occurrences starting 09/19/2023 until 09/19/2024 [employer] Work Phone: Comment on above: 1 Occurrences starti ng 09/19/2023 until 09/19/2024 Payers Date Payer Category Payer Commercial Managed C are - PPO [employer] [id number] 2020 Unknown [employer] M MO [employer] [id number] 2020-Present [phone] [address] [place] [address] [id number] 1977 Unknown [id number] 1977 Unknown [id number] 1977 Unknown [id number] 1977 Unknown [id number] 1959 Unknown [id number] Social History Date Type Detail Facility [facility]: [facility]23 [facility] Start: 09-19-2023 Tobacco use and exposure Smoke less tobacco non-user [facility] Start: 09-20-2023 End: 11-12-2024 Alcohol intake Current drinker of alcohol (finding) [facility] Start: 09-02-2020 End: 09-15-2020 History of Social function [facility] Start: 09-02-2020 End: 09-15-2020 Alcohol Use Disorder Identification Test - Consumption [AUDIT-C] [facility] How often to you hav e a drink containing alcohol? Monthly or less [facility] How many standard dr inks containing alcohol do you have on a typical day? Not asked [facility] Start: 06-08-2016 Alcohol Comment MAYBE ONE OR T WO A MONTH [facility] Start: 1975 Sex Assigned At Not on file P [facility] Start: 02-24-2015 Sex Male (finding) [facility] NEGATED: Highlighted rowStart: KRYSTALF History of tobacco use Passive smoker [facility] Clinical Notes 01-28-2022 to 11-12-2024 Oseas Whittaker MD - 11/12/2024 4:00 PM Rohan Mcgrath RN - 11/12/2024 4:00 PM uLi Castro PT - 11/12/2024 4:00 PM LATESHA Cyr - 11/12/2024 4:00 PM EDT Note Date & Type Note Facility 11-12-2024 History of Present illness Narrative Images from the original note were not included. [facility] ADULT [facility] PEDIATRIC BENIGN HEMATOLOGY PEDIATRIC THROMBOPHILIA Dr.Dagmar Florentino Hawkins PA-C OUTPATIENT FOLLOW-UP HEMATOLOGY NOTE: [facility] Patient ID: Liana Kaufman, 49 y.o. male PCP: YAIR LOUISE MD : 1975 CHIEF COMPLAINT: Chief Complaint Patient presents with Follow-up HISTORY OF PRESENT ILLNESS: Liana Kaufman is a 49 y.o. male with history of mild hemophilia A, hypothyroidism, and other health problems who presents today for follow-up at the [facility] for yearly comprehensive visit. Since last visit, he has been doing well. He thinks that he treated for 1 bleed over the last year. He thinks that this was in his knee. He was unsure if this was stiffness from arthritis or bleed, but he treated with factor infusions for 4 days and symptoms resolved. He does have 4 doses of factor at home. No upcoming surgeries or procedures. No specific joint complaints today. He is here today alone. PAST HEMATOLOGY HISTORY: He reports that his maternal grandfather had hemophilia A and of HIV/AIDS. He reports his mother is a hemophilia A carrier. His brother tested negative for hemophilia. His sister is a presumed carrier as well. He was diagnosed with hemophilia A at age 6 when he had bleeding after tonsillectomy. It sounds like he had severe hip bleed at age 18. He feels that his target joints are his hips and knees. Oncology History Overview Note Mild hemophilia A 5-8% Followed by [facility] from [id number] [facility] 2016-present Diagnosis History: Diagnosed in 1981 due to hemorrhage s/p T&A Treatment History: [id number] [facility] FS 2016-Advate Infectious Disease: No hx of HCV or HIV Hemophilia A ([facility]) 1981 Initial Diagnosis Hemophilia A ([facility]) 10/31/2018 Bleed Event L knee hemarthrosis-treated with Kovaltry 5495 units 11/29/2018 Bleed Event L knee hemarthrosis-treated daily x 3 with Kovaltry 5500 units-referred to ortho 05/2021 Bleed Event R knee bleed-tx with Kovaltry 5000 units x 1 07/2021 Bleed Event R knee bleed-tx with kovaltry 5000 units x 1 02/07/2023 Bleed Event Right thigh muscle bleed- treated with Kovaltry 50 units/kg x1 03/21/2023 Bleed Event Right thigh muscle bleed - Treated with Kovaltry 50 units/kg on 03/21, 8/30 PAST MEDICAL HISTORY: Past Medical History: Diagnosis Date BMI 35.0-35.9,adult 07/06/2016 Hemophilia A ([facility]) 5-6% FVIII level Hypothyroidism Visual impairment PAST SURGICAL HISTORY: Past Surgical History: Procedure Laterality Date ADENOIDECTOMY 1981 ADENOIDECTOMY MYRINGOTOMY W/ TUBES Had 5 sets of ear tubes NASAL POLYP EXCISION 7th grade NASAL POLYP EXCISION 8th grade TONSILLECTOMY 1981 PAST FAMILY HISTORY: Family History Problem Relation Age of Onset Hemophilia Mother Hemophilia A carrier No Known Problems Father Hemophilia Daughter moiz hemophilia A Hemophilia Maternal Grandfather from AIDS Heart disease Maternal Grandmother smoker Diabetes Paternal Grandmother SOCIAL HISTORY: Lives in [place], [place]. Works for [employer] as a nurse. Social History Socioeconomic History Marital status: Single Spouse name: Not on file Number of children: Not on file Years of education: 16 Highest education level: Not on file Occupational History Occupation: RN Comment: [employer] Tobacco Use Smoking status: Never Passive exposure: Never Smokeless tobacco: Never Vaping Use Vaping status: Never Used Substance and Sexual Activity Alcohol use: Yes Comment: MAYBE ONE OR TWO A MONTH Drug use: No Sexual activity: Defer Partners: Female Other Topics Concern Not on file Social History Narrative Not on file Social Drivers of Health Financial Resource Strain: Not on file Food Insecurity: No Food Insecurity (11/12/2024) Hunger Screening Food Insecurity - Worry: Never True Food Insecurity - Inability: Never True Transportation Needs: Not on file Physical Activity: Not on file Stress: Not on file Social Connections: Not on file Interpersonal Safety: Not on file Housing Instability: Not on file MEDICATIONS: Current Outpatient Medications on File Prior to Visit Medication Sig Dispense Refill albuterol (PROVENTIL HFA;VENTOLIN HFA) 90 mcg/actuation inhaler Inhale 1 puff as needed. KOVALTRY 3,000 (+/-) unit recon soln Infuse 5,375 FVIII Units into a venous catheter daily as needed (bleeding). +/-10% of 5565 FVIII units 6 each 0 levothyroxine (SYNTHROID, LEVOTHROID) 125 MCG tablet Take 175 mcg by mouth in the morning. Indications: a condition with low thyroid hormone levels. sodium chloride 0.9 % injection Infuse 10 mL into a venous catheter as needed for line care (before/after factor administration) for up to 10 doses. 100 mL 0 Current Facility-Administered Medications on File Prior to Visit Medication Dose Route Frequency Provider Last Rate Last Admin KOVALTRY (antihemophil FVIII,full length) injection 5,375 FVIII Units 50 FVIII Units/kg intravenous PRN Oesas Whittaker MD ALLERGIES: Allergies Allergen Reactions Penicillin G Potassium Penicillins Abdominal Pain PHYSICAL EXAMINATION: Vital signs: BP 119/81 Pulse 89 Ht 177.8 cm (5' 10 ) Wt 109.2 kg (240 lb 11.9 oz) BMI 34.54 kg/m General appearance: alert, no acute distress LABORATORY DATA: Lab Results Component Value Date WBC 9.3 09/19/2023 HGB 15.5 09/19/2023 HCT 45.0 09/19/2023 MCV 91 09/19/2023 PLT 200 09/19/2023 Lab Results Component Value Date GLU 73 09/19/2023 CALCIUM 8.9 09/19/2023 SODIUM 142 09/19/2023 K 3.6 09/19/2023 CO2 31 09/19/2023 BUN 19 09/19/2023 CREATININE 0.91 09/19/2023 Lab Results Component Value Date ALT 16 09/19/2023 AST 15 09/19/2023 ALKPHOS 53 09/19/2023 Lab Results Component Value Date INR 1.3 (H) 06/08/2016 PROTIME 14.7 (H) 06/08/2016 IMAGING: Reviewed in [employer] BILLING: Total time spent was 35 minutes: Preparing to see the patient (e.g., review of tests) Obtaining and/or reviewing separately obtained history Performing a medically appropriate examination and/or evaluation Counseling and educating the patient/family/caregiver Ordering medications, tests, or procedures Documenting clinical information in the electronic or other health record ASSESSMENT/RECOMMENDATIONS: Liana Kaufman is a 49 y.o. male with history of mild hemophilia A, hypothyroidism, and other health problems who presents today for follow-up at the [facility] for yearly comprehensive visit. 1. 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 He is currently doing well. - Continue recombinant factor 8 product (kovaltry) 25-50units/kg IVP PRN for bleeds. - Discussed hemlibra/emicizumab at last visit. Discussed briefly again today, but not pursuing at this time. - Check labs today (CBC, CMP, vitamin D). Will contact patient with results. - Liana met with social work manager, nurse, and physical therapist during the comprehensive visit today. - Anticipatory guidance given. - Notify the [facility] prior to any surgeries or procedures and with any bleeding concerns. 2. Vitamin D deficiency: He has been doing suntanning to improve his vitamin D levels. Vitamin D was low in 9785-1901, but was normal in 2023. - Will check vitamin D level again today. 3. Follow-up: - RTC in 1 year and PRN. Oseas Whittaker MD Adult Building Service Worker [facility] Pager: [phone] Patient arrives for annual comp clinic with self Last visit: 09/19/2023 Diagnosis: mild Hemo A Bleeding concerns: Target joints hips and knees in past PRN Product: Kovaltry Last Dose(s) Date/Time: unsure, within the last year for a stiff knee Refill Needed/Expiration: 4 doses Veritas Done: prn dosing Surgeries/Procedures Scheduled: none What Dentist; Last Visit; Issues/Concerns: dr quispe, ([facility]) Subjective: Patient is a 49 year old male presenting to hemophilia clinic for annual visit. Notes occasional R knee stiffness that has been present for years and is not progressing. Sometimes is worse after work, but not always consistent. Notes that stretching typically mitigates this tightness entirely. No bleeds through the last year, denies any new concerns. Notes that his often gets on him to do exercises regularly. 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 Pushes [employer]. Objective: Joint Motion (LE) L ROM R ROM L MMT R MMT Normal Range Hip flexion 0-120 Hip abduction 0-45 Hip extension 0-30 Hip IR 0-45 Hip ER 0-45 Knee flexion 120 120 0-150 Knee extension Lacking 2 0 0 Ankle DF 18 18 0-20 Ankle PF 40 40 0-40 Ankle inversion 40 34 0-30 Ankle eversion 25 28 0-20 Mobility-IND with ambulation, reports generally no limitations with the R ankle in regards to functional activities or recreation. Assessment: Patient is a 49 year old male presenting to hemophilia clinic for his annual visit. At this time, patient denies any acute pain or bleeds and believes function to be stable. Patient is not requiring any further HEP or outpatient physical therapy services. Will plan to follow up in 1 year to address any concerns. Education/Plan: Encouraged regular mobility and strengthening for functional maintenance. Annual follow up. Pt is a 49 year old male with hemophilia A, here for annual comp clinic visit Liana continues to live with his and two step children, both are currently students in college soon to graduate. 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 He continues to have some issues with his ankles, but this has not interfered with his work duties, and denies any major bleeds. He is working toward weight loss and hoping this will help resolve some issues. He treats as needed, and met with MD TONEY, and RN to discuss care plan. Liana has commercial insurance, there does not seem to be any barriers to accessing medication. He remains on a co-pay program to help cover cost of medication. Denies any substance issues past or present, and denies any mental health concerns. Toney enjoys trading on the stock market, and enjoys kick boxing. He has not been able to participate due to health reasons. Force Adjustment Supervisor recommended coaching the sport to remain involved. No major psychosocial issues identified, much support provided Report with MD TONEY, RN Medina FARMER SILO FILLER [facility] [employer] [facility]-02-2024 Note Results were deliver ed to patient; patient advised the following: Pt's blood pressure today was 118/76 (Normal: less than 120/80, Borderline or elevated = 120-129/80; High blood pressure/Hypertensive stage 1 = 130-139/80-89; High Blood Pressure Stage 2 = 140/90; Hypertensive Crisis = 180/120). Pt's BP was within normal range. It is recommended that the pt follow up with your primary care physician yearly for a preventable health exam. Pt's Lipid Panel Levels were as follows: Total Cholesterol: 217 (TC less than 200 mg/dl) HDL: 49 (HDL greater than 50 mg/dl) Triglyceride: 172 (TRG less than 200 mg/dl) LDL: 134 (LDL less than 130 mg/dl) Pt's lipid profile was borderline high for hyperlipidemia. It was recommended that pt follow up with your primary care physician to discuss further treatment recommendations. Pt's blood glucose today was BS 103 (Normal: Fasting BS less than 100 mg/dl, Prediabetes: 100 to 125 mg/dl, Diabetes: 126 mg/dl or above). Advised pt to follow-up with PCP for further treatment recommendations. Results were delivered to patient; patient advised the following: Hemoglobin A1C (HbA1c) is a blood test that is commonly used to diagnose diabetes. This test measures your average blood sugar levels over the past 2 to 3 months. Your HbA1c was 5.1% (Normal: less than 5.7, Prediabetes: 5.7-6.4, Diabetes: 6.5 or above). It is recommended that you follow up with your primary care physician yearly for a preventive health exam. [facility] 07-03-2024 Note Results were deliver ed to patient; patient advised the following: Pt's blood pressure today was 140/90 (Normal: less than 120/80, Borderline or elevated = 120-129/80; High blood pressure/Hypertensive stage 1 = 130-139/80-89; High Blood Pressure Stage 2 = 140/90; Hypertensive Crisis = 180/120). Pt's BP was considered abnormal and could possibly suggest hypertension. It is recommended that pt call primary care physician today for an appointment for further treatment recommendations. *Pt states he just left sauna. Pt's Lipid Panel Levels were as follows: Total Cholesterol: 220 (TC less than 200mg/dl) HDL: 38 (HDL greater than 50mg/dl) Triglyceride: 402 (TRG less than 200 mg/dl) LDL: 182 (LDL less than 130mg/dl) Pt's lipid profile was borderline high for hyperlipidemia. It was recommended that pt follow up with your primary care physician to discuss further treatment recommendations. Results were delivered to patient; patient advised the following: Pt's blood glucose level was 100 (Normal: Fasting BS less than 100 mg/dl, Prediabetes: 100 to 125 mg/dl, Diabetes: 126 mg/dl or above). Pt's blood glucose was within a healthy range. It is recommended that the pt follow up with their primary care physician yearly for a preventable health exam. [facility] 06-05-2024 Note Results were deliver ed to patient; patient advised the following: Pt's blood glucose level was 89 (Normal: Fasting BS less than 100 mg/dl, Prediabetes: 100 to 125 mg/dl, Diabetes: 126 mg/dl or above). Pt's blood glucose was within a healthy range. It is recommended that the pt follow up with their primary care physician yearly for a preventable health exam. Pt's blood pressure today was 124/86 (Normal: less than 120/80, Borderline or elevated = 120-129/80; High blood pressure/Hypertensive stage 1 = 130-139/80-89; High Blood Pressure Stage 2 = 140/90; Hypertensive Crisis = 180/120). Pt's BP was within normal range. It is recommended that the pt follow up with your primary care physician yearly for a preventable health exam. *Pt states this is where his BP is. Pt states he has primary care follow-up in June. Pt's Lipid Panel Levels were as follows: Total Cholesterol: 222 (TC less than 200mg/dl) HDL: 54 (HDL greater than 40mg/dl) Triglyceride: 197 (TRG less than 130mg/dl) LDL: 129 (LDL less than 100mg/dl) Pt's lipid profile was borderline high for hyperlipidemia. It was recommended that pt follow up with your primary care physician to discuss further treatment recommendations. *Pt states that he ate today. He has follow-up scheduled. Hemoglobin A1C (HbA1c) is a blood test that is commonly used to diagnose diabetes. This test measures your average blood sugar levels over the past 2 to 3 months. Your HbA1c was 5.0% (Normal: less than 5.7, Prediabetes: 5.7-6.4, Diabetes: 6.5 or above). It is recommended that you follow up with your primary care physician yearly for a preventive health exam. [facility] 09-19-2023 History of Present illness Narrative Images from the original note were not included. [facility] ADULT & PEDIATRIC BENIGN HEMATOLOGY PEDIATRIC THROMBOPHILIA Dr.Dagmar Florentino Hawkins PA-C OUTPATIENT FOLLOW-UP NOTE: [facility] Patient ID: Liana Kaufman, 47 y.o. male PCP: YAIR LOUISE MD : 1975 CHIEF COMPLAINT: Chief Complaint Patient presents with Follow-up HISTORY OF PRESENT ILLNESS: Liana Kaufman is a 47 y.o. male with history of mild hemophilia A, hypothyroidism, and other health problems who presents today for follow-up at the [facility] for yearly comprehensive visit. He reports that his maternal grandfather had hemophilia A and of HIV/AIDS. He reports his mother is a hemophilia A carrier. His brother tested negative for hemophilia. His sister is a presumed carrier as well. He was diagnosed with hemophilia A at age 6 when he had bleeding after tonsillectomy. It sounds like he had severe hip bleed at age 18. He feels that his target joints are his hips and knees. He has treating approximately 1-3 bleeds per year. He is currently treating for right ankle bleed. He is treated with several doses. He is 1 dose at home and will need to order more doses. He feels that his ankle bleed was precipitated by walking barefoot. Otherwise, no other bleeding concerns. No upcoming surgeries or procedures. No other major complaints today. He is here today alone. PAST HEMATOLOGY HISTORY: Oncology History Overview Note Mild hemophilia A 5-8% Followed by [facility] from [id number] [facility] 2016-present Diagnosis History: Diagnosed in 1981 due to hemorrhage s/p T&A Treatment History: [id number] Kogenate FS 2016-Advate Infectious Disease: No hx of HCV or HIV Hemophilia A ([facility] 1982 Initial Diagnosis Hemophilia A ([facility]) 10/31/2018 Bleed Event L knee hemarthrosis-treated with Kovaltry 5495 units 11/29/2018 Bleed Event L knee hemarthrosis-treated daily x 3 with Kovaltry 5500 units-referred to ortho 05/2021 Bleed Event R knee bleed-tx with Kovaltry 5000 units x 1 07/2021 Bleed Event R knee bleed-tx with kovaltry 5000 units x 1 02/07/2023 Bleed Event Right thigh muscle bleed- treated with Kovaltry 50 units/kg x1 03/21/2023 Bleed Event Right thigh muscle bleed - Treated with Kovaltry 50 units/kg on 03/21, 03/22 REVIEW OF SYSTEMS: Complete 10-point ROS is negative except as mentioned in HPI. PAST MEDICAL HISTORY: Past Medical History: Diagnosis Date BMI 35.0-35.9,adult 07/06/2016 Hemophilia A ([facility] 5-6% FVIII level Hypothyroidism Visual impairment PAST SURGICAL HISTORY: Past Surgical History: Procedure Laterality Date ADENOIDECTOMY 1981 ADENOIDECTOMY MYRINGOTOMY W/ TUBES s Had 5 sets of ear tubes NASAL POLYP EXCISION 7th grade NASAL POLYP EXCISION 8th grade TONSILLECTOMY 1981 PAST FAMILY HISTORY: Family History Problem Relation Age of Onset Hemophilia Mother Hemophilia A carrier No Known Problems Father Hemophilia Daughter carralicia hemophilia A Hemophilia Maternal Grandfather from AIDS Heart disease Maternal Grandmother smoker Diabetes Paternal Grandmother SOCIAL HISTORY: Lives in [place], [place]. Works for [employer] as a nurse. Social History Socioeconomic History Marital status: Single Spouse name: Not on file Number of children: Not on file Years of education: 16 Highest education level: Not on file Occupational History Occupation: RN Comment: [employer] Tobacco Use Smoking status: Never Passive exposure: Never Smokeless tobacco: Never Vaping Use Vaping Use: Never used Substance and Sexual Activity Alcohol use: Yes Comment: MAYBE ONE OR TWO A MONTH Drug use: No Sexual activity: Yes Partners: Female Other Topics Concern Not on file Social History Narrative Not on file Social Determinants of Health Financial Resource Strain: Not on file Food Insecurity: No Food Insecurity (09/19/2023) Hunger Screening Food Insecurity - Worry: Never True Food Insecurity - Inability: Never True Transportation Needs: Not on file Physical Activity: Not on file Stress: Not on file Social Connections: Not on file Interpersonal Safety: Not on file Housing Instability: Not on file MEDICATIONS: Current Outpatient Medications on File Prior to Visit Medication Sig Dispense Refill albuterol (PROVENTIL HFA;VENTOLIN HFA) 90 mcg/actuation inhaler Inhale 1 puff as needed. levothyroxine (SYNTHROID, LEVOTHROID) 125 MCG tablet Take 175 mcg by mouth daily. sodium chloride 0.9 % injection Infuse 10 mL into a venous catheter as needed for line care (before/after factor administration) for up to 10 doses. 100 mL 0 No current facility-administered medications on file prior to visit. ALLERGIES: Allergies Allergen Reactions Penicillin G Potassium Penicillins Abdominal Pain PHYSICAL EXAMINATION: Vital signs: BP 131/80 Pulse 79 Ht 180.3 cm (5' 11 ) Wt 107.5 kg (236 lb 15.9 oz) BMI 33.05 kg/m General appearance: alert, no acute distress HEENT: supple CV: RRR, no murmurs PULM: CTAB, no wheezing ABD: soft, NT/ND EXT: No edema. Some swelling and limited range of motion of right ankle. LABORATORY DATA: Lab Results Component Value Date WBC 9.3 09/19/2023 HGB 15.5 09/19/2023 HCT 45.0 09/19/2023 MCV 91 09/19/2023 PLT 200 09/19/2023 Lab Results Component Value Date GLU 73 09/19/2023 CALCIUM 8.9 09/19/2023 SODIUM 142 09/19/2023 K 3.6 09/19/2023 CO2 31 09/19/2023 BUN 19 09/19/2023 CREATININE 0.91 09/19/2023 Lab Results Component Value Date ALT 16 09/19/2023 AST 15 09/19/2023 ALKPHOS 53 09/19/2023 Lab Results Component Value Date INR 1.3 (H) 06/08/2016 PROTIME 14.7 (H) 06/08/2016 IMAGING: Reviewed in EPIC BILLING: Total time spent was 41 minutes: Preparing to see the patient (e.g., review of tests) Obtaining and/or reviewing separately obtained history Performing a medically appropriate examination and/or evaluation Counseling and educating the patient/family/caregiver Ordering medications, tests, or procedures Documenting clinical information in the electronic or other health record ASSESSMENT/RECOMMENDATIONS: Liana Kaufman is a 47 y.o. male with history of mild hemophilia A, hypothyroidism, and other health problems who presents today for follow-up at the [facility] for yearly comprehensive visit. 1. 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 He is currently doing well. - Continue recombinant factor 8 product (kovaltry) 25-50units/kg IVP PRN for bleeds. He is currently treating a right ankle bleed. - Discussed hemlibra/emicizumab today. Gave patient packet of information about it. - Check labs today (CBC, CMP, vitamin D, factor 8 inhibitor). Will contact patient with results. - Quinn met with social work manager, nurse, and physical therapist during the comprehensive visit today. - Anticipatory guidance given. - Notify the C prior to any surgeries or procedures and with any bleeding concerns. 2. Vitamin D deficiency: He has been doing suntanning to improve his vitamin D levels. - Check vitamin D level today. 3. Follow-up: - RTC in 1 year and PRN. Oseas Whittaker MD Adult Building Service Worker [facility] [email or web address] Pager: [phone] Patient treated with Kovaltry =/- 5000 units today at 2:45pm. Patient states that he may have strained his foot on Monday. Patient present for comp clinic Diagnosis: 5-8% hemophilia A Bleeding concerns: right ankle bleed currently. Treated 09/15, 09/18, 09/19 Product Used: kovaltry Last Dose Date/Time: 09/19 @ 245pm Refill Needed: yes - only one dose on hand Veritas Done: no PRN Surgeries/Procedures Scheduled: none Subjective: Patient is a 47 year old male presenting to hemophilia clinic for annual visit. At this time patient reports he is dealing with a R ankle bleed - has treated twice. Does not have frequent bleeding, first in a while that has been present. Notes he first noted pain when ambulating barefoot as he has high arches, and generally has insoles for arch support. States that he uses the B inserts for his day shoes as well as his tactical boots for work. Noting L foot bunion which is aggravated at times, but is currently well controlled. Wears shoes in the home as well. States that he follows with podiatry regularly, no daily concerns. Denies any AROM deficits in the B ankles. States he doesn't stretch as often as he should, but is generally able to do all the recreational activities that he wishes. No other concerns at this time. 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 Objective: Joint Motion (LE) L ROM R ROM L MMT R MMT Normal Range Hip flexion 0-120 Hip abduction 0-45 Hip extension 0-30 Hip IR 0-45 Hip ER 0-45 Knee flexion 0-150 Knee extension 0 Ankle DF 5 Bleed;0 0-20 Ankle PF 70 Bleed;60 0-40 Ankle inversion 49 Bleed;30 0-30 Ankle eversion 30 Bleed;20 0-20 Mobility-IND with ambulation, reports generally no limitations with the R ankle in regards to functional activities or recreation. Assessment: Patient is a 47 year old male presenting to hemophilia clinic for his annual visit. At this time, patient is treating for a current R ankle bleeds, however reports function to be stable as this is his first bleed in quite some time. States he is already regaining AROM and ambulation tolerance on the ankle. Patient is not requiring any further HEP or outpatient physical therapy services. Will plan to follow up in 1 year to address any concerns. Education/Plan: Discussed with patient current concerns as noted above. Encouraged regular mobility and strengthening for functional maintenance. Pt is a 47 year old male with hemophilia A, here for comp visit Pt agreeable to meet with ROBINSON Liana has some ongoing issues with his Rt ankle, he met with medical staff, PT, RN and MD to discuss care plan, he continues to treat with Kovaltry as needed. please review notes for details. Liana's reports his left foot has some issues with his toes, and his right ankle tends to hurt. He has inserted special shoe pads that seem to help. 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 Working 3rd shift is helping because he is not walking too much on his feet, he is able to prop his feet for comfort. Liana wears special boots at work to prevent from any falls on wet mehul. ROBINSON discussed and recommended an FMLA if he is in need of any time off of work, or any accommodations. At this time he does not feel the need for an FMLA, his employer seems to be accommodating. Liana met with the physical therapist to discuss concerns. Liana has not been participating in kick boxing, a sport he loves, due to his ankle/feet issues, but he has been enjoying time at the gym with the [employer]. Liana is marred, he has two step children, his daughter is attending college at [employer], his son is plans to attend [place], and he has a son in 5th grade. Liana denies any tobacco use, denies any substance use. Liana denies any major mental health concerns Liana is enrolled in the co-pay program for Kovaltry, auto renew yearly No major psychosocial issues identified, much support provided Medina CHARLTON [facility] Note Education Materials Cardiovascular Hypertension, Adult High blood pressure (hypertension) is when the force of blood pumping through the arteries is too strong. The arteries are the blood vessels that carry blood from the heart throughout the body. Hypertension forces the heart to work harder to pump blood and may cause arteries to become narrow or stiff. Untreated or uncontrolled hypertension can cause a heart attack, heart failure, a stroke, kidney disease, and other problems. A blood pressure reading consists of a higher number over a lower number. Ideally, your blood pressure should be below 120/80. The first ( top ) number is called the systolic pressure. It is a measure of the pressure in your arteries as your heart beats. The second ( bottom ) number is called the diastolic pressure. It is a measure of the pressure in your arteries as the heart relaxes. What are the causes? The exact cause of this condition is not known. There are some conditions that result in or are related to high blood pressure. What increases the risk? Some risk factors for high blood pressure are under your control. The following factors may make you more likely to develop this condition: ? Smoking. ? Having type 2 diabetes mellitus, high cholesterol, or both. ? Not getting enough exercise or physical activity. ? Being overweight. ? Having too much fat, sugar, calories, or salt (sodium) in your diet. ? Drinking too much alcohol. Some risk factors for high blood pressure may be difficult or impossible to change. Some of these factors include: ? Having chronic kidney disease. ? Having a family history of high blood pressure. ? Age. Risk increases with age. ? Race. You may be at higher risk if you are . ? Gender. Men are at higher risk than women before age 45. After age 65, women are at higher risk than men. ? Having obstructive sleep apnea. ? Stress. What are the signs or symptoms? High blood pressure may not cause symptoms. Very high blood pressure (hypertensive crisis) may cause: ? Headache. ? Anxiety. ? Shortness of breath. ? Nosebleed. ? Nausea and vomiting. ? Vision changes. ? Severe chest pain. ? Seizures. How is this diagnosed? This condition is diagnosed by measuring your blood pressure while you are seated, with your arm resting on a flat surface, your legs uncrossed, and your feet flat on the floor. The cuff of the blood pressure monitor will be placed directly against the skin of your upper arm at the level of your heart. It should be measured at least twice using the same arm. Certain conditions can cause a difference in blood pressure between your right and left arms. Certain factors can cause blood pressure readings to be lower or higher than normal for a short period of time: ? When your blood pressure is higher when you are in a health care provider's office than when you are at home, this is called white coat hypertension. Most people with this condition do not need medicines. ? When your blood pressure is higher at home than when you are in a health care provider's office, this is called masked hypertension. Most people with this condition may need medicines to control blood pressure. If you have a high blood pressure reading during one visit or you have normal blood pressure with other risk factors, you may be asked to: ? Return on a different day to have your blood pressure checked again. ? Monitor your blood pressure at home for 1 week or longer. If you are diagnosed with hypertension, you may have other blood or imaging tests to help your health care provider understand your overall risk for other conditions. How is this treated? This condition is treated by making healthy lifestyle changes, such as eating healthy foods, exercising more, and reducing your alcohol intake. Your health care provider may prescribe medicine if lifestyle changes are not enough to get your blood pressure under control, and if: ? Your systolic blood pressure is above 130. ? Your diastolic blood pressure is above 80. Your personal target blood pressure may vary depending on your medical conditions, your age, and other factors. Follow these instructions at home: Eating and drinking ? Eat a diet that is high in fiber and potassium, and low in sodium, added sugar, and fat. An example eating plan is called the DASH (Dietary Approaches to Stop Hypertension) diet. To eat this way: ? Eat plenty of fresh fruits and vegetables. Try to fill one half of your plate at each meal with fruits and vegetables. ? Eat whole grains, such as whole-wheat pasta, brown rice, or whole-grain bread. Fill about one fourth of your plate with whole grains. ? Eat or drink low-fat dairy products, such as skim milk or low-fat yogurt. ? Avoid fatty cuts of meat, processed or cured meats, and poultry with skin. Fill about one fourth of your plate with lean proteins, such as fish, chicken without skin, beans, e (more content not included)... [facility] 01-28-2022 Note Education Materials Cardiovascular Hypertension, Adult High blood pressure (hypertension) is when the force of blood pumping through the arteries is too strong. The arteries are the blood vessels that carry blood from the heart throughout the body. Hypertension forces the heart to work harder to pump blood and may cause arteries to become narrow or stiff. Untreated or uncontrolled hypertension can cause a heart attack, heart failure, a stroke, kidney disease, and other problems. A blood pressure reading consists of a higher number over a lower number. Ideally, your blood pressure should be below 120/80. The first ( top ) number is called the systolic pressure. It is a measure of the pressure in your arteries as your heart beats. The second ( bottom ) number is called the diastolic pressure. It is a measure of the pressure in your arteries as the heart relaxes. What are the causes? The exact cause of this condition is not known. There are some conditions that result in or are related to high blood pressure. What increases the risk? Some risk factors for high blood pressure are under your control. The following factors may make you more likely to develop this condition: ? Smoking. ? Having type 2 diabetes mellitus, high cholesterol, or both. ? Not getting enough exercise or physical activity. ? Being overweight. ? Having too much fat, sugar, calories, or salt (sodium) in your diet. ? Drinking too much alcohol. Some risk factors for high blood pressure may be difficult or impossible to change. Some of these factors include: ? Having chronic kidney disease. ? Having a family history of high blood pressure. ? Age. Risk increases with age. ? Race. You may be at higher risk if you are . ? Gender. Men are at higher risk than women before age 45. After age 65, women are at higher risk than men. ? Having obstructive sleep apnea. ? Stress. What are the signs or symptoms? High blood pressure may not cause symptoms. Very high blood pressure (hypertensive crisis) may cause: ? Headache. ? Anxiety. ? Shortness of breath. ? Nosebleed. ? Nausea and vomiting. ? Vision changes. ? Severe chest pain. ? Seizures. How is this diagnosed? This condition is diagnosed by measuring your blood pressure while you are seated, with your arm resting on a flat surface, your legs uncrossed, and your feet flat on the floor. The cuff of the blood pressure monitor will be placed directly against the skin of your upper arm at the level of your heart. It should be measured at least twice using the same arm. Certain conditions can cause a difference in blood pressure between your right and left arms. Certain factors can cause blood pressure readings to be lower or higher than normal for a short period of time: ? When your blood pressure is higher when you are in a health care provider's office than when you are at home, this is called white coat hypertension. Most people with this condition do not need medicines. ? When your blood pressure is higher at home than when you are in a health care provider's office, this is called masked hypertension. Most people with this condition may need medicines to control blood pressure. If you have a high blood pressure reading during one visit or you have normal blood pressure with other risk factors, you may be asked to: ? Return on a different day to have your blood pressure checked again. ? Monitor your blood pressure at home for 1 week or longer. If you are diagnosed with hypertension, you may have other blood or imaging tests to help your health care provider understand your overall risk for other conditions. How is this treated? This condition is treated by making healthy lifestyle changes, such as eating healthy foods, exercising more, and reducing your alcohol intake. Your health care provider may prescribe medicine if lifestyle changes are not enough to get your blood pressure under control, and if: ? Your systolic blood pressure is above 130. ? Your diastolic blood pressure is above 80. Your personal target blood pressure may vary depending on your medical conditions, your age, and other factors. Follow these instructions at home: Eating and drinking ? Eat a diet that is high in fiber and potassium, and low in sodium, added sugar, and fat. An example eating plan is called the DASH (Dietary Approaches to Stop Hypertension) diet. To eat this way: ? Eat plenty of fresh fruits and vegetables. Try to fill one half of your plate at each meal with fruits and vegetables. ? Eat whole grains, such as whole-wheat pasta, brown rice, or whole-grain bread. Fill about one fourth of your plate with whole grains. ? Eat or drink low-fat dairy products, such as skim milk or low-fat yogurt. ? Avoid fatty cuts of meat, processed or cured meats, and poultry with skin. Fill about one fourth of your plate with lean proteins, such as fish, chicken without skin, beans, e (more content not included)... 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 * Antihemophilic Factor (Recombinant), ADULT ([place]an) [facility]* Attachments The following attachments cannot be sent through Care Everywhere. * Bleeding Precautions ([place]an) documented in this [facility] Summary Purpose Family History No Family History Records FoundNo Family History Records FoundNo Family History Records FoundNo Family History Records Found Advance Directives No Advanced Directives Records FoundNo Advanced Directives Records FoundNo Advanced Directives Records FoundNo Advanced Directives Records Found Additional Source Comments (unrecognized sect ion and content) No Status Records FoundNo Status Records FoundNo Status Records FoundNo Status Records Found INFORMATION SOURCE (unrecogn ized section and content) DATE CREATED AUTHOR 03/04/2022 [facility] DATE CREATED AUTHOR AUTHOR'S ORGANIZ ATION 11/20/2022 [facility] DATE CREATED AUTHOR AUTHOR'S ORGANIZ ATION 10/04/2024 [facility] DATE CREATED AUTHOR AUTHOR'S ORGANIZ ATION 11/13/[address] [facility] Reason for Visit (unrecogniz ed section and content) Reason Comments Follow-up Care Teams (unrecognized sec tion and content) Sheet Cutting Operator Relationship Specialty Start Date End Date Yair Louise MD [address] [place] [address] PCP - General Family Medicine 10/31/18 Sheet Cutting Operator Relationship Specialty Start Date End Date Yair Louise MD PCP - General Family Medicine 10/31/18 FOR RECORDS PERTAINING TO PATIENTS WHO ARE OR HAVE BEEN ENROLLED IN A CHEMICAL DEPENDENCY/SUBSTANCEABUSE PROGRAM, SOME INFORMATION MAY BE OMITTED. This clinical summary was aggregated from multiple sources. Caution should be exercised in using it in the provision of clinical care. This summary normalizes information from multiple sources, and as a consequence, information in this document may materially change the coding, format and clinical context of patient data. In addition, data may be omitted in some cases. CLINICAL DECISIONS SHOULD BE BASED ON THE PRIMARY CLINICAL RECORDS. [facility]. provides no warranty or guarantee of the accuracy or completeness of information in this document.
[2025-01-09 16:58] LABS: Estimated Average Glucose 105 mg/dL; Glycohemoglobin A1C 5.3 % (4.5-6.2)
[2025-01-09 17:13] LABS: Alanine Aminotransferase 21 U/L (16-63); Albumin Globulin Ratio 1.1; Albumin Level 3.8 g/dL (3.4-5.0); Alkaline Phosphatase 61 U/L (46-116); Anion Gap 11.6; Aspartate Amino Transferase 15 U/L (15-37); BUN Creatinine Ratio 16.5; Bilirubin Total 0.8 mg/dL (0.2-1.0); Calcium 8.9 mg/dL (8.5-10.1); Carbon Dioxide 30.3 mmol/L (21.0-32.0); Chloride 104 mmol/L (98-107); Chol HDL Ratio 3.9; Cholesterol 203 mg/dL (<=200); Estimated GFR (African America >60 (>=60 mL/min/1.73m^2); Estimated GFR (Non-African Ame >60 (>=60 mL/min/1.73m^2); Free T3 2.63 pg/mL (2.18-3.98); Globulin 3.4 g/dL; Glucose 85 mg/dL (74-106); HDL Cholesterol 52 mg/dL (40-60); Potassium 3.9 mmol/L (3.5-5.1); Sodium 142 mmol/L (136-145); Thyroid Stimulating Hormone 1.413 uIU/mL (0.358-3.740); Total Protein 7.2 g/dL (6.4-8.2); Triglycerides 146 mg/dL (<=150); Uric Acid 7.4 mg/dL (3.5-7.2); VLDL CHOLESTEROL 29.2 mg/dL
[2025-01-09 17:53] LABS: Basophils Absolute Auto 0.1 10^3/uL (0.0-0.1); Basophils Percent Auto 0.7 % (0.2-2.0); Eosinophils Absolute Auto 0.5 10^3/uL (0.0-0.7); Eosinophils Percent Auto 7.2 % (0.9-7.0); Hematocrit 45.3 % (42.0-54.0); Hemoglobin 15.9 g/dL (14.0-18.0); Immature Granulocytes Abs Auto 0.01 10^3/uL (0.00-0.03); Immature Granulocytes Pct Auto 0.1 % (0.0-0.5); Lymphocytes Absolute Auto 1.7 10^3/uL (1.2-3.8); Lymphocytes Percent Auto 22.9 % (20.5-60.0); Mean Corpuscular HGB Conc 35.1 g/dL (29.9-35.2); Mean Corpuscular Hemoglobin 31.3 pg (25.9-34.0); Mean Corpuscular Volume 89.2 fL (80.0-94.0); Mean Platelet Volume 10.3 fL (9.5-13.5); Monocytes Absolute Auto 0.7 10^3/uL (0.3-0.8); Monocytes Percent Auto 9.1 % (1.7-12.0); Neutrophils Absolute Auto 4.4 10^3/uL (1.4-6.5); Platelet Count 207 10^3/uL (150-450); Red Blood Count 5.08 10^6/uL (4.70-6.10); Red Cell Distribution Width 12.5 % (11.0-15.0); White Blood Count 7.3 10^3/uL (4.0-11.0)
[2025-01-09 19:10] LABS: Prostate Specific Antigen Scrn 0.86 ng/mL (<=4.00)
[2025-01-11 02:11] LABS: Insulin 8.8 uIU/mL (2.6-24.9)
[2025-01-11 04:07] LABS: Testosterone 575 ng/dL (264-916)
== END 2025-01-09 16:00 | disposition home or self-care (01) ==
LOC: LAB 16:01
PROVIDERS: PCP Nurse Practitioner Family; Visit Provider Nurse Practitioner Family
DX: Z00.00 Encounter for general adult medical examination without abnormal findings (principal); E78.5 Hyperlipidemia, unspecified; R73.09 Other abnormal glucose; R53.83 Other fatigue; Z12.5 Encounter for screening for malignant neoplasm of prostate; E55.9 Vitamin D deficiency, unspecified
CPT/HCPCS: 36415; 80053; 80061; 82306; 83036; 83525; 84403; 84436; 84443; 84481; 84550; 85025; G0103